=== PATIENT | female | born 1960 | race Caucasian/White ===

== ENCOUNTER 2022-02-20 18:18 | Inpatient (IN) | payer MEDICARE, SELFPAY ==
[2022-02-20] VITALS (30 sets, daily range): BP systolic 63–116; BP diastolic 43–78; PULSE 60–72; RESP 16; O2SAT 92–97; BMI 40.1
--- NOTE | 2022-02-20 18:19 | XRR_ITS ---
PROCEDURE INFORMATION: Exam: XR Chest Exam date and time: 02/20/2022 6:50 PM Age: 62 years old Clinical indication: Device placement; Other: Ng tube and et; Additional info: Pneumonia TECHNIQUE: Imaging protocol: Radiologic exam of the chest. Views: 1 view. COMPARISON: No relevant prior studies available. FINDINGS: Limitations: The study is limited by patient body habitus. Tubes, catheters and devices: There is an endotracheal tube present, with distal tip 3 cm above the kylie. There is an enteric tube present with distal tip in the stomach. Lungs: Pulmonary venous congestion and increased interstitial markings. No consolidative pulmonary infiltrate noted. Pleural spaces: No pleural effusion. No pneumothorax. Heart/Mediastinum: Mild cardiomegaly is noted. Vasculature: The thoracic aorta is tortuous. Bones/joints: Unremarkable. XR/XR chest 1V portable [id number] IMPRESSION: 1. The study is limited by patient body habitus. 2. There is an endotracheal tube present, with distal tip 3 cm above the kylie. 3. There is an enteric tube present with distal tip in the stomach. 4. Mild cardiomegaly is noted. 5. Pulmonary venous congestion and increased interstitial markings. Findings may indicate mild fluid overload/CHF. 6. No consolidative pulmonary infiltrate noted.
--- NOTE | 2022-02-20 18:49 | PC.NURSE ---
TO unit Pt brought to unit by [facility]. Pt moved from [place] to bed by EMS and ICU staff. Pt on fentanyl and versed for sedation. Sedation drips switched from EMS pumps to our pumps. Pt has IV to left hand and right forearm both patent. Pt has 7.5 ET tube, 24 at the lip and OG in place. Pt has redness that is blanchable to sacrum, redness and chaffing to both groin folds, small round areas scattered on back with scabs. Petty catheter in place. Per EMS family notified of pt transfer from [facility].
--- NOTE | 2022-02-20 19:03 | PM.HP ---
Providers/Chief Complaint Admitting Physician: Joe Kaminski MD Primary Care Provider: Nathan Schultz Chief Complaint: bilateral pnemonia History of Present Illness Nadine Herrera is a 62 year old female with PMH of HTN was a direct admit from [facility], where she went with chief complaint of worsening SOB as well cough with productive blood tinged sputum, When she aarived there she was hypoxic as well as respiratory distress, initially she was tried on non invasive mode of ventilation but given her progressive respiratory distress as well as worsening hypoxia she had to be intubated.CTA Chest done there ruled out P/E.It showed left infrahilar adenopathy rounded infiltrate within the superior segment of left lower lobe with air bronchogram surrounding groundglass infiltrates.Subtle infiltrates in the right middle lobe She was also given I.V abxs for PNA Pertinet labs done here on arrival showed. Xray chest :Cardiomegaly as well as pulmonary vascular congestion ABG : Ph: 7.44,PCO2: 43, PO2: 115 , FI02: 100 % P/F : 115 Pertinent Labs: WBC : 7.4 , H&H : 16/51 , PLT : 321, Na: 134, k : 4.8 , BUN/SCR : 16/0.5 HCO3: 27 , Lactic Acid: 1.1 , Procal: 0.19 Review of Systems General: Reports: ROS unobtainable due to endotracheal tube Medications/Allergies Home Medications Medication Instructions Recorded Confirmed Last Taken Type betamethasone, augmented 0.05 % 1 applic topical DAILY PRN unknown 02/21/22 02/21/22 Unknown History topical cream cetirizine 10 mg tablet (Zyrtec) 10 mg PO DAILY 02/21/22 02/21/22 Unknown History clobetasol 0.05 % topical cream 1 applic topical BID PRN unknown 02/21/22 02/21/22 Unknown History fluticasone propionate 50 1 spray intranasal DAILY PRN 02/21/22 02/21/22 Unknown History mcg/actuation nasal Allergy Symptoms spray,suspension (Flonase Allergy Relief) gabapentin 300 mg capsule See Rx Instructions .Route .COMPLEX 02/21/22 02/21/22 Unknown History hydroxyzine HCl 25 mg tablet 25 mg PO Q6H PRN unknown 02/21/22 02/21/22 Unknown History lisinopril 10 mg tablet 10 mg PO DAILY 02/21/22 02/21/22 Unknown History metoprolol succinate 100 mg 100 mg PO DAILY 02/21/22 02/21/22 Unknown History tablet,extended release 24 hr Allergies Allergy/AdvReac Type Severity Reaction Status Date / Time strawberry Allergy Unknown Verified 02/20/22 20:51 Vitals/I&O/Wt Last Vital Signs Resp 16 02/20/22 18:19 Pulse Ox 93 02/20/22 18:19 O2 Del Method 02/20/22 18:19 FiO2 100 02/20/22 18:19 Physical Exam Narrative: Intubated sedated on mechanical ventilation. HENMT: COMMON NORMALS: normocephalic and atraumatic HEAD & SCALP: normocephalic and atraumatic EXTERNAL EAR: Yes external ears normal Resp: COMMON NORMALS: clear to auscultation bilaterally AUSCULTATION: clear to auscultation bilaterally OTHER: Diminished air entry B/L, Coarse Breath sounds Cardio: COMMON NORMALS: regular rate, regular rhythm, S1 normal heart sound present, S2 normal heart sound present, No gallops present (Cardio), No murmurs present (Cardio), No rub (Cardio) and Peripheral pulses 2+ throughout RATE: regular rate RHYTHM: regular rhythm HEART SOUNDS: S1 normal heart sound present and S2 normal heart sound present PERIPHERAL PULSES: Peripheral pulses 2+ throughout GI: COMMON NORMALS: Normal to inspection, nondistended, normoactive bowel sounds present, Soft to palpation, non-tender, No hepatosplenomegaly present and no masses AUSCULTATION: Yes normoactive bowel sounds PALPATION: Yes Soft to palpation and Yes No hepatosplenomegaly present RECTAL EXAM: deferred Extremity: COMMON NORMALS: no clubbing, cyanosis or edema and no pedal edema Data 02/21/22 04:41 02/21/22 04:41 A&P Assessment and plan (1) Pneumonia: (2) Respiratory failure with hypoxia and hypercapnia: (3) Heart failure: Plan 62 year old female with PMH of HTN was a direct admit from [facility], where she went with chief complaint of SOB as well cough with productive blood tinged sputum. Assessment : Acute on chronic hypoxic hypercapnic respiratory failure secondary to pneumonia/heart failure/pulmonary hypertension. Decompensated heart Failure Likely with preserved ejection fraction Pulmonary hypertension with an estimated pulmonary artery peak : systolic pressure of 48 mmHg. Pneumonia HTN Morbid Obesity Plan : 2D echo: Lower extremity doppler Vein : Follow Blood Culture Sputum Gram Stain and culture MRSA PCR Respiratory viral panel Urine legionella antigen Urine bacterial antigen panel Currently she is empirically On Broad spectrum ABxs Has received lasix 40 I.V Monitor intake/Output Charting Monitor electrolytes. EKG Duo nebs Currently on versed/propofol as well as fentanyl for sedation will wean off versed. On levophed DVT PPX: On SCDS for now as she presented with scant hemoptysis. Code Status :Full code. Attestations Medical Necessity Statement*: Patient needs to be in hospital for the management of respiratory failure.Anticipated LOS Greater then 2 Midnights. Time Spent in Patient Care: Greater than 35 minutes Critical Care Time: The high probability of a clinically significant, sudden or life threatening deterioration of the patient's [] system(s) required my full and direct attention, intervention and personal management. The critical care time is as shown. This time is in addition to time spent performing any reported procedures but includes the following: [x] Data and vital sign review and interpretation [x] Patient assessment, examination and intervention [x] Documentation [x] Medication orders and management Critical Care Time (min): 90 Coding Level of Care Code Acute Control Clerk Auditing for [facility] Fwd Exam Detailed Diagnoses Pneumonia J18.9 Respiratory failure with hypoxia and hypercapnia J96.91; J96.92 Heart failure I50.9
--- NOTE | 2022-02-20 19:23 | USCV_ITS ---
Nadine Herrera Age: 62 Gender: F : 1960 Exam Date: 02/20/2022 20:59 Ordering Phys: Joe Kaminski MD Technologist: KOBY Exam Location: [facility] [place] Indication: r/o dvt Patient is on ventilator in ICU-11. HISTORY: r/o dvt Patient is on ventilator in ICU-11. PROCEDURES: Venous duplex imaging was performed in bilateral lower extremities. The following venous structures were evaluated: common femoral vein, profunda vein, proximal portion of the greater saphenous vein, superficial femoral vein, and the popliteal vein. In addition, the posterior tibial veins were evaluated. Serial compression, augmentation maneuvers, and spectral Doppler flow evaluation were performed, which were normal. Bilaterally, the common femoral, superficial femoral, profunda femoral, popliteal, posterior tibial,and greater saphenous veins were identified and interrogated in the standard fashion. These veins were found to be easily compressible with spontaneous blood flow. No evidence of thrombus noted. CONCLUSIONS No evidence of right lower extremity DVT. No evidence of left lower extremity DVT. Cyril Angeles MD (Electronically Signed) Final Date: 21 February 2022 10:59 S
--- NOTE | 2022-02-20 19:23 | USCV_ITS ---
Nadine Herrera Age: 62 Gender: F : 1960 Exam Date: 02/20/2022 21:29 Ordering Phys: Joe Kaminski MD Technologist: KOBY [place] [facility] [place]: hypoxia. On ventilator in ICU-11. BP: 82 / 52 HR: 62 Rhythm: Sinus Technical Quality: Suboptimal c/o body habitus with Optison MEASUREMENTS (Male / Female) Normal Values 2D ECHO LV Diastolic Diameter PLAX 3.5 cm 4.2 - 5.9 / 3.9 - 5.3 cm LV Systolic Diameter PLAX 2.5 cm IVS Diastolic Thickness 1.0 cm 0.6 - 1.0 / 0.6 - 0.9 cm IVS Systolic Thickness 1.8 cm LVPW Diastolic Thickness 0.9 cm 0.6 - 1.0 / 0.6 - 0.9 cm LVPW Systolic Thickness 1.2 cm LVOT Diameter 2.1 cm LV Ejection Fraction 2D Teich 59.1 % LV Ejection Fraction MOD 2C 73.2 % LV Ejection Fraction 2C AL 73.2 % LA Diameter 3.8 cm LA Width 2.9 cm LA Height 5.5 cm RA Width 4.3 cm RA Height 5.5 cm Aorta at Sinotubular Diameter 3.0 cm IVC Diameter 2.1 cm M-MODE Aortic Annulus Diameter 3.2 cm LA Ao Ratio MM 1.4 DOPPLER AV Peak Velocity 137.0 cm/s LVOT Peak Velocity 101.0 cm/s AV Area Cont Eq vti 2.9 cm squared AV Area Cont Eq pk 2.5 cm squared MV Area PHT 3.3 cm squared Mitral E to A Ratio 1.8 MV E' Velocity 54.5 cm/s Mitral E to MV E' Ratio 10.2 Mitral E to LV E' Lateral Ratio 9.8 Mitral E to LV E' Septal Ratio 10.5 TR Peak Velocity 309.0 cm/s TR Peak Gradient 38.2 mmHg TV Peak E Velocity 21.0 cm/s Right Atrial Pressure 10.0 mmHg Pulmonary Artery Systolic Pressu 48.2 mmHg PV Peak Velocity 79.0 cm/s RV Acceleration Time 0.1 s RV Ejection Time 0.3 s RV AcT/ET 0.3 FINDINGS Left Ventricle Normal left ventricular size and systolic function, EF 73 %. No regional wall motion abnormalities. Right Ventricle Normal right ventricular size. Normal right ventricular systolic function. Right Atrium The right atrium is normal in size. Left Atrium The left atrium is normal in size. Mitral Valve Thickened mitral valve. Moderate mitral annular calcification. Aortic Valve Thickened aortic valve. Tricuspid Valve Trace tricuspid valve regurgitation. Estimated pulmonary artery peak systolic pressure 48 mmHg Pulmonic Valve Pulmonic valve not well visualized. Pericardium No pericardial effusion. Aorta Normal aortic annulus size. IVC Inferior vena cava not visualized. CONCLUSIONS Normal left ventricular size and systolic function, EF 73 %. No regional wall motion abnormalities. Thickened mitral valve. Moderate mitral annular calcification. Thickened aortic valve. Trace tricuspid valve regurgitation. Pulmonary hypertension with an estimated pulmonary artery peak systolic pressure of 48 mmHg. There is no pericardial effusion. Technically difficult study because of the poor ultrasonic window. (Echo contrast - Optison was used to delineate the endocardium and to estimate the LV ejection fraction) Dr Renee Ribeiro MD [facility] (Electronically Signed) Final Date: 21 February 2022 09:20 S
[2022-02-20 19:34] LABS: Basophils # 0.1 10^3/uL (0.0-0.1); Basophils % 0.8 %; Eosinophils % 0.3 %; Hematocrit 51.5 % (37.0-47.0); Hemoglobin 16.4 g/dL (11.5-15.3); Lymphocytes # 1.9 10^3/uL (0.8-4.8); Lymphocytes % 25.1 %; Mean Corpuscular HGB Conc 31.8 g/dL (30.0-36.0); Mean Corpuscular Hemoglobin 29.3 pg (28.0-34.0); Mean Corpuscular Volume 92.1 fl (81-99); Mean Platelet Volume 9.7 fL (7.4-10.4); Monocytes # 0.8 10^3/uL (0.2-0.9); Monocytes % 10.3 %; Neutrophils # 4.61 10^3/uL (1.8-7.7); Neutrophils % 62.3 %; Nucleated Red Blood Cells % 0.4 %; Platelet Count 321 10^3/cmm (130-400); Red Blood Count 5.59 10^6/uL (4.1-5.3); White Blood Count 7.4 10^3/uL (4.0-10.0)
[2022-02-20] MEDS: propofol 1,000 MG/100 ML INJ 5.97 MG IV (19:45)
[2022-02-20 19:47] LABS: INR 1.03 (0.8-1.2); Partial Thromboplastin Time 27.9 SECONDS (23.9-36.7)
[2022-02-20 19:51] LABS: Lactate (Lactic Acid level) 1.1 mmol/L (0.5-2.2)
[2022-02-20 20:00] LABS: Alanine Aminotransferase 20 U/L (0-33); Alkaline Phosphatase 82 U/L (35-105); Anion Gap 13.8 (5-19); Aspartate Amino Transferase 21 U/L (0-32); Blood Urea Nitrogen 16 mg/dL (8-23); Calcium 8.3 mg/dL (8.5-10.5); Carbon Dioxide 27 mmol/L (22-29); Chloride 98 mmol/L (98-107); Globulin 3.1 g/dL (1.3-4.6); Glucose 104 mg/dL (65-115); Osmolality Calculated 279 mOsm/kg (285-295); Potassium 4.8 mmol/L (3.5-5.1); Sodium 134 mmol/L (136-145); Total Bilirubin 0.2 mg/dL (0.15-1.2); Total Protein 6.1 g/dL (6.6-8.7)
--- NOTE | 2022-02-20 20:03 | XRR_ITS ---
PROCEDURE INFORMATION: Exam: XR Chest Exam date and time: 02/20/2022 8:11 PM Age: 62 years old Clinical indication: Device placement; Other: Central line placement TECHNIQUE: Imaging protocol: Radiologic exam of the chest. Views: 1 view. COMPARISON: CR (CHEST, ) 02/20/2022 6:50 PM FINDINGS: Tubes, catheters and devices: Right jugular central line with tip overlying right atrium. Endotracheal tube and nasogastric tube appear unchanged. Lungs: Pulmonary venous congestion and increased interstitial markings. No consolidative pulmonary infiltrate noted. Pleural spaces: Suspect left pleural effusion. No pneumothorax. Heart/Mediastinum: Mild cardiomegaly. Bones/joints: Unremarkable. XR/XR chest 1V portable [id number] IMPRESSION: 1. Right jugular central line with tip overlying right atrium. No postprocedure pneumothorax. 2. Pulmonary venous congestion and increased interstitial markings. No consolidative pulmonary infiltrate noted. 3. Suspect left pleural effusion.
[2022-02-20 20:05] LABS: Procalcitonin 0.19 ng/mL (0-0.5)
[2022-02-20 20:32] LABS: ABG PCO2 43.2 mmHg (35-45); ABG PH Result 7.44 (7.35-7.45); Arterial Blood Gas Hematocrit 52.7 % (37-47); Base Excess ABG 4.2 mmol/L (-2.0-2.0); Blood Gas Allen Test Pos; Blood Gas Sample Site Radial, right; Blood Gas Sample Type Arterial; Blood Gas Tidal Volume 0.45; HCO3 ABG 29.2 mmol/L (22-26); Oxygen Device VENT
[2022-02-20 20:43] LABS: Glucose Point of Care 138 mg/dL (70-110)
[2022-02-20] MEDS: piperacillin-tazobactam 3.375 GM in sodium chloride 0.9% (plus) 50 ML IV (20:48)
--- NOTE | 2022-02-20 20:48 | ECG_ITS ---
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 Measurements Intervals [place] Rate: 62 P: 76 WV: 131 QRS: 60 QRSD: 97 T: 75 QT: 445 QTc: 452 Interpretive Statements SINUS RHYTHM POSSIBLE RIGHT ATRIAL ENLARGEMENT [0.25mV P-WAVE] MODERATE T-WAVE ABNORMALITY, CONSIDER ANTERIOR ISCHEMIA [-0.1+ mV T-WAVE IN V3/V4] No previous ECG available for comparison Electronically Signed On 02-21-2022 20:44:29 FLASH DEVELOPER by Renee Ribeiro M.D. [id number]
[2022-02-20] MEDS: FUROsemide 10 mg/mL SDV 4mL 40 MG IVP (21:15)
[2022-02-20] MEDS: vancomycin 1,250 MG/250 ML PIGGYBACK 250 MG IV (21:15)
--- NOTE | 2022-02-20 22:24 | PM.ACPR ---
Procedure/Consent Time out: Time Out Performed: Yes Acute Procedures Central Line Placement: Right IJ: Time out performed: Yes Patient placed on monitor/pulse ox: Yes MD prep: mask, gown and gloves Central line prep: Chlorhexidine scrub and sterile drapes applied Local anesthesia used: lidocaine 1% Amount of anesthesia used (ml): 10 Ultrasound used for placement: Yes Central line lumen inserted: triple Post procedure: sutured in place, good blood return, all ports aspirated, flushed, capped and sterile dressing applied Post procedure x-ray: tip of catheter in good position and no pneumothorax seen Patient tolerated procedure: well and no complications Complications: none and pneumothorax Epistaxis Control: Time out performed: Yes
[2022-02-21] VITALS (93 sets, daily range): BP systolic 86–135; BP diastolic 49–91; PULSE 61–96; RESP 15–16; TEMP 37.3–37.8; O2SAT 90–99
[2022-02-21] MEDS: propofol 1,000 MG/100 ML INJ 17.9 MG IV (01:31)
[2022-02-21] MEDS: piperacillin-tazobactam 3.375 GM in sodium chloride 0.9% (plus) 50 ML IV ×3 (03:10→20:51)
[2022-02-21] MEDS: ipratropium 0.5 mg/2.5 mL Neb INHALATION ×3 (03:40→14:04)
[2022-02-21] MEDS: albuterol 2.5 mg/3 mL Neb INHALATION ×3 (03:40→14:04)
[2022-02-21 03:41] LABS: Adenovirus Not Detected (NOT DETECT); Chlamydia Pneumoniae Not Detected (NOT DETECT); Coronavirus 229E,HKU1,NL63,OC4 Not Detected (NOT DETECT); Human Metapneumovirus Not Detected (NOT DETECT); Human Rhinovirus/Enterovirus Not Detected (NOT DETECT); Influenza A Detected (NOT DETECT); Influenza A H1 Not Detected (NOT DETECT); Influenza A H1-2009 Not Detected (NOT DETECT); Influenza A H3 Detected (NOT DETECT); Influenza B Not Detected (NOT DETECT); Mycoplasma Pneumoniae Not Detected (NOT DETECT); Parainfluenza Virus Type 1 Not Detected (NOT DETECT); Parainfluenza Virus Type 2 Not Detected (NOT DETECT); Parainfluenza Virus Type 3 Not Detected (NOT DETECT); Parainfluenza Virus Type 4 Not Detected (NOT DETECT); Respiratory Syncytial Virus A Not Detected (NOT DETECT); Respiratory Syncytial Virus B Not Detected (NOT DETECT); SARS-COV-2 Not Detected (NOT DETECT)
[2022-02-21 04:21] LABS: ABG PCO2 54.9 mmHg (35-45); ABG PH Result 7.36 (7.35-7.45); Alveolar-Arterial Oxygen Gradi 68.2 mmHg (5-10); Arterial Blood Gas Hematocrit 53.3 % (37-47); Base Excess ABG 3.3 mmol/L (-2.0-2.0); Blood Gas Allen Test Pos; Blood Gas Sample Site Radial, right; Blood Gas Sample Type Arterial; Blood Gas Tidal Volume 0.45; Carboxyhemoglobin < 1.0 %THgb (0.4-20.1); HCO3 ABG 30.7 mmol/L (22-26); HGB O2 Sat 97.7 % (95-100); Ionized Calcium Level - ABG 1.1 mmol/L (1.1-1.4); Methemoglobin 0.1 % (0.4-1.5); Oxygen Device VENT; Oxygen Saturation ABG 98.6; Potassium Level - ABG 3.6 mmol/L (3.5-5.0); Total Hemoglobin 17.4 g/dL (12-16)
[2022-02-21 05:18] LABS: Basophils # 0.1 10^3/uL (0.0-0.1); Basophils % 0.6 %; Eosinophils # 0.1 10^3/uL (0.0-0.8); Hematocrit 52.1 % (37.0-47.0); Hemoglobin 16.3 g/dL (11.5-15.3); Lymphocytes # 1.7 10^3/uL (0.8-4.8); Lymphocytes % 20.5 %; Mean Corpuscular HGB Conc 31.3 g/dL (30.0-36.0); Mean Corpuscular Hemoglobin 29.2 pg (28.0-34.0); Mean Corpuscular Volume 93.4 fl (81-99); Mean Platelet Volume 10.1 fL (7.4-10.4); Monocytes # 0.9 10^3/uL (0.2-0.9); Monocytes % 10.7 %; Nucleated Red Blood Cells % 0.2 %; Platelet Count 307 10^3/cmm (130-400); Red Blood Count 5.58 10^6/uL (4.1-5.3); Red Cell Distribution Width 14.1 % (12.1-15.1); White Blood Count 8.2 10^3/uL (4.0-10.0)
[2022-02-21] MEDS: propofol 1,000 MG/100 ML INJ 26.84 MG IV ×5 (05:22→22:24)
[2022-02-21 05:23] LABS: INR 1.08 (0.8-1.2)
[2022-02-21 05:24] LABS: Partial Thromboplastin Time 28.8 SECONDS (23.9-36.7)
[2022-02-21 05:44] LABS: NT Pro B Type Natriuretic Pept 735 pg/mL (0-125); Procalcitonin 0.19 ng/mL (0-0.5); Thyroid Stimulating Hormone 3.59 uIU/mL (0.27-4.20)
[2022-02-21 05:55] LABS: Alanine Aminotransferase 19 U/L (0-33); Alkaline Phosphatase 83 U/L (35-105); Anion Gap 13.6 (5-19); Aspartate Amino Transferase 17 U/L (0-32); Blood Urea Nitrogen 13 mg/dL (8-23); Calcium 7.9 mg/dL (8.5-10.5); Carbon Dioxide 28 mmol/L (22-29); Chloride 97 mmol/L (98-107); Globulin 3.1 g/dL (1.3-4.6); Glucose 138 mg/dL (65-115); Magnesium 1.4 mg/dL (1.7-2.3); Osmolality Calculated 282 mOsm/kg (285-295); Phosphorus 2.5 mg/dL (2.5-4.5); Potassium 3.6 mmol/L (3.5-5.1); Sodium 135 mmol/L (136-145); Total Bilirubin 0.2 mg/dL (0.15-1.2); Total Protein 6.1 g/dL (6.6-8.7)
[2022-02-21 07:34] LABS: Glucose Point of Care 133 mg/dL (70-110)
[2022-02-21] MEDS: perflutren protein-a microsphr 0.22 mg/mL SDV 3 mL IV (07:38)
--- NOTE | 2022-02-21 09:36 | PC.PHAR ---
pt unable to verify medications due to being intubated-called pts sister jerman kapadia [phone] no answer @ 07:44 and 09:30-medications entered are medications that show up on ext med history
[2022-02-21] MEDS: vancomycin 1,250 MG/250 ML PIGGYBACK 250 MG IV ×2 (09:45→20:51)
[2022-02-21] MEDS: FUROsemide 10 mg/mL SDV 2mL 20 MG IVP ×2 (09:45→21:48)
--- NOTE | 2022-02-21 12:30 | PC.CHAP ---
Pastoral Care Encounter/Spiritual Assessment Type of Contact [] Declined ward service supervisor visit [] Patient/Family/Request visit [] Outpatient visit [] Follow-up visit [] Physician referral [] Code/Alert [x] Routine visit [] Staff referral [] Actively dying [x] Patient sleeping [] Family support [] [] Out of room [] Palliative care [] [] Receiving care in room [] Pre-surgical visit [] Trauma [] Long length of stay [x] ICU visit [x] Other: vent Relational/Emotional Strength [] Patient feels connected with others/family/visitors/staff [] Distress [] Loneliness/isolation [] Abandonment Spirituality of Patient [] Person of Corina [] Attends Voodoo of their Corina [] Believes in Prayer [] Reads Bible or Jehovah'S Witness materials [] There are Spiritual issues to be addressed Banquet Captain Interventions [x] Prayer [] Active listening [] Non-anxious presence [] Spiritual/emotional support [] Crisis/trauma care [] Spiritual counseling [] Bereavement support [] Provided bereavement packet [] Provided Bible/devotional materials [] Provided toy/stuffed animal, coloring book to patient or family member [] Provided Communion [] Anointing/[place] [] Salvation [x] Completed spiritual assessment [] Other: Impact on Illness or Injury [] Angry [] Fearful [] Anxious [] Often cries [] Exhaustion [] Unable to work [] Unable to attend mandaen [] Unable to walk/stand [] Unable to read [] Unable to drive [] Unable to eat/drink [] Unable to sleep [] Unable to be with family [] Patient intubated [] Other: Summary Time spent with patient
[2022-02-21] MEDS: lidocaine 1% 5 ML in potassium chloride premix 100 ML 50 ML IV (16:20)
[2022-02-21] MEDS: magnesium sulfate premix 2 GM/50 ML PIGGYBACK IV (16:22)
--- NOTE | 2022-02-21 16:42 | P.PN_ITS ---
Subjective Subjective: Patient was seen and examined this morning,currently she is intubated sedated on mechanical ventilation. Overnight good urine output with jeronimo Escobedo ABG: pH 7.36, PCO2 54, PO2:114, FiO2 of 100% Afebrile overnight. Her other vitals and labs have been reviewed. Medications: Medication Review Details: Generic Name Dose Route Start Last Admin Trade Name Leslie PRN Reason Stop Dose Admin Piperacillin Sod/T azobactam 50 mls @ 12.5 mls /hr 02/20/22 18:30 02/21/22 12:48 Sod 3.375 gm/ So dium Chloride IV 12.5 mls/hr Q8H JAVON Administration Protocol Propofol 1,000 mg in 100 m ls @ 0 mls/hr 02/20/22 18:30 02/21/22 14:09 Diprivan IV 45 mcg/kg/min .Q0M JAVON 26.84 mls/hr Administration Protocol Per Protocol Fentanyl 1,000 mcg / Sodium 100 mls @ 0 mls/h r 02/20/22 18:30 02/21/22 12:49 Chloride IV 125 mcg/hr .Q0M JAVON 12.5 mls/hr Administration Protocol Per Protocol Norepinephrine Bit artrate 4 mg 254 mls @ 0 mls/h r 02/20/22 18:30 02/21/22 10:51 / Dextrose IV 8 mcg/min .Q0M JAVON 30.48 mls/hr Administration Protocol Per Protocol Vancomycin/PEG/NAD A/Lysine/Water 1,250 mg in 250 m ls @ 250 mls/hr 02/20/22 21:00 02/21/22 11:23 Vancocin IV Infused Q12H JAVON Infusion Lidocaine HCl 5 ml / Potassium 105 mls @ 50 mls/ hr 02/21/22 16:15 02/21/22 16:20 Chloride IV 02/21/22 18:20 50 mls/hr ONCE ONE Administration Vitals/I&O/Wt Last Vital Signs Temp 99.2 F 02/21/22 07:35 Pulse 96 02/21/22 14:11 Resp 16 02/21/22 16:00 BP 99/58 02/21/22 13:15 Pulse Ox 94 02/21/22 16:00 O2 Del Method 02/21/22 14:10 FiO2 50 02/21/22 16:00 02/21/22 02/21/22 02/21/22 06:59 14:59 22:59 Intake Total 850.209 / 961.451 750.074 / 750.074 Output Total 2150 / 2150 750 / 750 Balance -1299.791 / -1188.549 0.074 / 0.074 Weight last 48 hrs Weight 97.976 kg Weight 99.422 kg Physical Exam Narrative: Intubated sedated on mechanical ventilation. HENMT: COMMON NORMALS: normocephalic, atraumatic, hearing grossly normal bilaterally and external ears normal HEAD & SCALP: normocephalic and atraumatic EXTERNAL EAR: Yes external ears normal Resp: COMMON NORMALS: clear to auscultation bilaterally AUSCULTATION: clear to auscultation bilaterally OTHER: Diminished air entry B/L, Coarse Breath sounds Cardio: COMMON NORMALS: regular rate, regular rhythm, S1 normal heart sound present, S2 normal heart sound present, No gallops present (Cardio), No murmurs present (Cardio), No rub (Cardio) and Peripheral pulses 2+ throughout RATE: regular rate RHYTHM: regular rhythm HEART SOUNDS: S1 normal heart sound present and S2 normal heart sound present PERIPHERAL PULSES: Peripheral pulses 2+ throughout GI: COMMON NORMALS: Normal to inspection, nondistended, normoactive bowel sounds present, Soft to palpation, non-tender, No hepatosplenomegaly present and no masses AUSCULTATION: Yes normoactive bowel sounds PALPATION: Yes Soft to palpation and Yes No hepatosplenomegaly present RECTAL EXAM: deferred Extremity: COMMON NORMALS: no clubbing, cyanosis or edema and no pedal edema Data 02/21/22 04:41 02/21/22 04:41 Micro: Microbiology 02/21/22 00:01 MRSA Culture - Final Nose 02/20/22 18:16 Gram Stain - Final Sputum - Endotracheal Tube Aspirate Sputum Culture - Preliminary 02/21/22 00:01 Legionella Urinary Antigen - Final Urine,Clean Catch Bacterial Antigens - Final 02/20/22 19:22 Blood Culture - Preliminary Blood SPECIMEN COLLECTED 02/20/22 19:13 Blood Culture - Preliminary Blood SPECIMEN COLLECTED A&P Assessment and plan (1) Pneumonia: (2) Respiratory failure with hypoxia and hypercapnia: (3) Heart failure: Plan 62 year old female with PMH of HTN was a direct admit from [facility], where she went with chief complaint of SOB as well cough with productive blood tinged sputum. Assessment : Acute on chronic hypoxic hypercapnic respiratory failure secondary to pneumonia/heart failure/pulmonary hypertension/influenza Decompensated heart Failure Likely with preserved ejection fraction Pulmonary hypertension with an estimated pulmonary artery peak : systolic pressure of 48 mmHg. Pneumonia HTN Morbid Obesity Plan : CTA chest: No P/E.It showed left infrahilar adenopathy rounded infiltrate within the superior segment of left lower lobe with air bronchogram surrounding groundglass infiltrates.Subtle infiltrates in the right middle lobe. 2D echo: Normal LV size and systolic function, LVEF:73%, no RWMA, technically difficult study with poor windows. Lower extremity doppler Vein : Negative for DVT EKG : Sinus rhythm no acute ST-T wave changes Blood Culture: Sputum Gram Stain and culture MRSA PCR: Negative Respiratory viral panel : Results appreciated Urine legionella antigen: Negative Urine bacterial antigen panel: Negative Currently she is empirically On Broad spectrum ABxs ( Vanco and Zosyn ) On Tamiflu Has received Lasix Monitor intake/Output Charting Monitor electrolytes. Monitor x-ray chest Duo nebs Currently on versed/propofol as well as fentanyl for sedation will wean off versed. On levophed DVT PPX: On SCDS and Lovenox Code Status :Full code. Attestations Medical Necessity Statement*: Patient is to be in hospital for management of respiratory failure. Time Spent in Patient Care: Greater than 35 minutes (>than 50% of time spent in counselling and/or direct pt care on unit) . Critical Care Time: The high probability of a clinically significant, sudden or life threatening deterioration of the patient's [] system(s) required my full and direct attention, intervention and personal management. The critical care time is as shown. This time is in addition to time spent performing any reported procedures but includes the following: [x] Data and vital sign review and interpretation [x] Patient assessment, examination and intervention [x] Documentation [x] Medication orders and management Critical Care Time (min): 45 Coding Level of Care Code Acute Manager Of Revenue for [employer] Fwd Diagnoses Pneumonia J18.9 Respiratory failure with hypoxia and hypercapnia J96.91; J96.92 Heart failure I50.9
[2022-02-21] MEDS: oseltamivir phosphate 75 mg Capsule PO (17:51)
[2022-02-21] MEDS: enoxaparin 40 mg/0.4 mL Syringe SUBCUT (17:51)
[2022-02-21] MEDS: ipratropium-albuterol 3 mL Neb INHALATION (20:11)
[2022-02-21] MEDS: acetaminophen 325 mg Tablet 650 MG PO (21:49)
[2022-02-22] VITALS (83 sets, daily range): BP systolic 89–168; BP diastolic 47–87; PULSE 65–100; RESP 16–17; TEMP 37.2–37.7; O2SAT 90–99
[2022-02-22] MEDS: propofol 1,000 MG/100 ML INJ 26.84 MG IV (01:47)
[2022-02-22] MEDS: ipratropium-albuterol 3 mL Neb INHALATION ×4 (01:54→20:05)
[2022-02-22] MEDS: piperacillin-tazobactam 3.375 GM in sodium chloride 0.9% (plus) 50 ML IV ×3 (04:00→19:55)
[2022-02-22 04:04] LABS: Basophils % 0.5 %; Eosinophils # 0.1 10^3/uL (0.0-0.8); Eosinophils % 0.9 %; Hematocrit 50.7 % (37.0-47.0); Lymphocytes # 1.4 10^3/uL (0.8-4.8); Lymphocytes % 16.2 %; Mean Corpuscular HGB Conc 31.6 g/dL (30.0-36.0); Mean Platelet Volume 9.9 fL (7.4-10.4); Monocytes # 0.9 10^3/uL (0.2-0.9); Monocytes % 10.5 %; Neutrophils % 70.6 %; Nucleated Red Blood Cells % 0 %; Platelet Count 303 10^3/cmm (130-400); Red Blood Count 5.51 10^6/uL (4.1-5.3); Red Cell Distribution Width 14.2 % (12.1-15.1); White Blood Count 8.8 10^3/uL (4.0-10.0)
[2022-02-22 04:28] LABS: Alanine Aminotransferase 15 U/L (0-33); Albumin Level 2.7 g/dL (3.5-5.2); Alkaline Phosphatase 81 U/L (35-105); Anion Gap 13.5 (5-19); Aspartate Amino Transferase 15 U/L (0-32); Blood Urea Nitrogen 10 mg/dL (8-23); Calcium 8.3 mg/dL (8.5-10.5); Carbon Dioxide 28 mmol/L (22-29); Chloride 95 mmol/L (98-107); Globulin 3.5 g/dL (1.3-4.6); Glucose 120 mg/dL (65-115); Osmolality Calculated 276 mOsm/kg (285-295); Potassium 3.5 mmol/L (3.5-5.1); Sodium 133 mmol/L (136-145); Total Bilirubin 0.4 mg/dL (0.15-1.2); Total Protein 6.2 g/dL (6.6-8.7)
[2022-02-22 04:36] LABS: ABG PCO2 41.9 mmHg (35-45); ABG PH Result 7.42 (7.35-7.45); Alveolar-Arterial Oxygen Gradi 29.2 mmHg (5-10); Arterial Blood Gas Hematocrit 58.2 % (37-47); Base Excess ABG 2.2 mmol/L (-2.0-2.0); Blood Gas Allen Test Pos; Blood Gas Operator Identificat JB; Blood Gas Sample Site Radial, right; Blood Gas Sample Type Arterial; Blood Gas Tidal Volume 0.45; Carboxyhemoglobin 0.8 %THgb (0.4-20.1); HCO3 ABG 27.2 mmol/L (22-26); HGB O2 Sat 95.2 % (95-100); Ionized Calcium Level - ABG 1.2 mmol/L (1.1-1.4); Methemoglobin 0.2 % (0.4-1.5); Oxygen Device VENT; Oxygen Saturation ABG 96.2; Potassium Level - ABG 3.6 mmol/L (3.5-5.0)
[2022-02-22] MEDS: propofol 1,000 MG/100 ML INJ 29.83 MG IV ×5 (04:42→16:36)
[2022-02-22 08:15] LABS: Vancomycin Trough 12.5 ug/mL (10-15)
[2022-02-22] MEDS: oseltamivir phosphate 75 mg Capsule PO ×2 (09:39→16:58)
[2022-02-22] MEDS: vancomycin 1,250 MG/250 ML PIGGYBACK 250 MG IV (09:39)
--- NOTE | 2022-02-22 14:31 | PM.PN ---
Subjective Subjective: Patient was seen and examined this morning,currently she is intubated sedated on mechanical ventilation. Continues to have good urine output with Lasix 40 IV daily, currently she is on 40% FiO2, and PEEP of 8,tv, 150, a.m. ABG: Has shown pH of 7.42 PCO2 41, PO2 77 FiO2 of 50%, P/F : 77/0.5 Currently she is having thick secretions. Medications: Medication Review Details: Generic Name Dose Route Start Last Admin Trade Name Freq PRN Reason Stop Dose Admin Acetaminophen 650 mg 02/20/22 18:19 02/21/22 21:49 Acetaminophen 32 5 Mg Tablet PO 650 mg Q6H PRN Administration Mild/Mod Pain Or Temp >/= 101 Albuterol/Ipratrop ium 3 ml 02/21/22 20:00 02/22/22 13:48 Ipratropium-Albu terol 3 Ml Neb INHALATION 3 ml Q6H.RESP JAVON Administration Enoxaparin Sodium 40 mg 02/21/22 18:00 02/21/22 17:51 Enoxaparin 40 Mg /0.4 Ml Syringe SUBCUT 40 mg Q24H JAVON Administration Piperacillin Sod/T azobactam 50 mls @ 12.5 mls /hr 02/20/22 18:30 02/22/22 12:30 Sod 3.375 gm/ So dium Chloride IV 12.5 mls/hr Q8H JAVON Administration Protocol Propofol 1,000 mg in 100 m ls @ 0 mls/hr 02/20/22 18:30 02/22/22 14:04 Diprivan IV 50 mcg/kg/min .Q0M JAVON 29.83 mls/hr Administration Protocol Per Protocol Fentanyl 1,000 mcg / Sodium 100 mls @ 0 mls/h r 02/20/22 18:30 02/22/22 12:22 Chloride IV 125 mcg/hr .Q0M JAVON 12.5 mls/hr Administration Protocol Per Protocol Norepinephrine Bit artrate 4 mg 254 mls @ 0 mls/h r 02/20/22 18:30 02/22/22 12:21 / Dextrose IV 4 mcg/min .Q0M JAVON 15.24 mls/hr Administration Protocol Per Protocol Vancomycin/PEG/NAD A/Lysine/Water 1,250 mg in 250 m ls @ 250 mls/hr 02/20/22 21:00 02/22/22 10:55 Vancocin IV Infused Q12H JAVON Infusion Oseltamivir Phosph ate 75 mg 02/21/22 18:00 02/22/22 09:39 Oseltamivir Phos phate 75 Mg Capsul e PO 75 mg BID JAVON Administration Vitals/I&O/Wt Last Vital Signs Temp 98.9 F 02/22/22 07:53 Pulse 72 02/22/22 14:00 Resp 16 02/22/22 13:51 BP 139/66 02/22/22 12:15 Pulse Ox 96 02/22/22 13:51 O2 Del Method 02/22/22 13:50 FiO2 40 02/22/22 13:51 02/21/22 02/22/22 02/22/22 22:59 06:59 14:59 Intake Total 1008.755 / 1758.829 288.967 / 2047.796 827.889 / 827.889 Output Total 1999 / 0 250 / 250 Balance 1008.755 / 1008.829 -1711.033 / -702.204 577.889 / 577.889 Weight last 48 hrs Weight 96.842 kg Weight 97.976 kg Weight 99.422 kg Physical Exam Narrative: Intubated sedated on mechanical ventilation. HENMT: COMMON NORMALS: normocephalic, atraumatic, hearing grossly normal bilaterally and external ears normal HEAD & SCALP: normocephalic and atraumatic EXTERNAL EAR: Yes external ears normal Resp: COMMON NORMALS: clear to auscultation bilaterally AUSCULTATION: clear to auscultation bilaterally OTHER: Diminished air entry B/L, Coarse Breath sounds Cardio: COMMON NORMALS: regular rate, regular rhythm, S1 normal heart sound present, S2 normal heart sound present, No gallops present (Cardio), No murmurs present (Cardio), No rub (Cardio) and Peripheral pulses 2+ throughout RATE: regular rate RHYTHM: regular rhythm HEART SOUNDS: S1 normal heart sound present and S2 normal heart sound present PERIPHERAL PULSES: Peripheral pulses 2+ throughout GI: COMMON NORMALS: Normal to inspection, nondistended, normoactive bowel sounds present, Soft to palpation, non-tender, No hepatosplenomegaly present and no masses AUSCULTATION: Yes normoactive bowel sounds PALPATION: Yes Soft to palpation and Yes No hepatosplenomegaly present RECTAL EXAM: deferred Extremity: COMMON NORMALS: no clubbing, cyanosis or edema and no pedal edema Data 02/22/22 03:42 02/22/22 03:42 Micro: Microbiology 02/20/22 18:16 Gram Stain - Final Sputum - Endotracheal Tube Aspirate Sputum Culture - Final 02/20/22 19:22 Blood Culture - Preliminary Blood NEGATIVE TO DATE 02/20/22 19:13 Blood Culture - Preliminary Blood NEGATIVE TO DATE 02/21/22 00:01 MRSA Culture - Final Nose A&P Assessment and plan (1) Pneumonia: (2) Respiratory failure with hypoxia and hypercapnia: (3) Heart failure: Plan 62 year old female with PMH of HTN was a direct admit from [facility], where she went with chief complaint of SOB as well cough with productive blood tinged sputum. Assessment : Acute on chronic hypoxic hypercapnic respiratory failure secondary to pneumonia/heart failure/pulmonary hypertension/influenza Decompensated heart Failure Likely with preserved ejection fraction Pulmonary hypertension with an estimated pulmonary artery peak : systolic pressure of 48 mmHg. Pneumonia HTN Morbid Obesity Plan : CTA chest: No P/E.It showed left infrahilar adenopathy rounded infiltrate within the superior segment of left lower lobe with air bronchogram surrounding groundglass infiltrates.Subtle infiltrates in the right middle lobe. 2D echo: Normal LV size and systolic function, LVEF:73%, no RWMA, technically difficult study with poor windows. Lower extremity doppler Vein : Negative for DVT EKG : Sinus rhythm no acute ST-T wave changes Blood Culture: Sputum Gram Stain and culture MRSA PCR: Negative Respiratory viral panel : Results appreciated Urine legionella antigen: Negative Urine bacterial antigen panel: Negative Currently she is empirically On Broad spectrum ABxs ( Vanco and Zosyn ) On Tamiflu Has received Lasix Monitor intake/Output Charting Monitor electrolytes. Monitor x-ray chest Duo nebs Currently on /propofol as well as fentanyl for sedation versed has been weaned off On levophed Plan for today: Continue mechanical ventilation, discontinue vancomycin, will continue with Lasix. DVT PPX: On SCDS and Lovenox Code Status :Full code. Attestations Medical Necessity Statement*: Patient is to be in hospital for management respiratory failure. Time Spent in Patient Care: Greater than 35 minutes (>than 50% of time spent in counselling and/or direct pt care on unit). Critical Care Time: The high probability of a clinically significant, sudden or life threatening deterioration of the patient's [] system(s) required my full and direct attention, intervention and personal management. The critical care time is as shown. This time is in addition to time spent performing any reported procedures but includes the following: [x] Data and vital sign review and interpretation [x] Patient assessment, examination and intervention [x] Documentation [x] Medication orders and management Critical Care Time (min): 45 Coding Level of Care Code Acute Academic Success Coordinator for g Fwd Exam Detailed Diagnoses Pneumonia J18.9 Respiratory failure with hypoxia and hypercapnia J96.91; J96.92 Heart failure I50.9
[2022-02-22] MEDS: FUROsemide 10 mg/mL SDV 2mL 20 MG IVP ×2 (14:53→22:33)
[2022-02-22] MEDS: enoxaparin 40 mg/0.4 mL Syringe SUBCUT (16:58)
--- NOTE | 2022-02-22 19:13 | PC.NURSE ---
Sister Marisol at bedside. Given update on patient. Patient became very alert attempting to grab at tubes and lines. Family educated on low stimulation to assist with sedation. Sedation titrated up per order in apr.
[2022-02-22] MEDS: propofol 1,000 MG/100 ML INJ 35.79 MG IV ×2 (19:48→22:31)
[2022-02-22] MEDS: acetylcysteine 200 mg/mL SDV 4 mL INHALATION (20:05)
[2022-02-23] VITALS (106 sets, daily range): BP systolic 93–185; BP diastolic 50–118; PULSE 69–128; RESP 16–30; TEMP 36.8–37.7; O2SAT 85–99
[2022-02-23] MEDS: propofol 1,000 MG/100 ML INJ 35.79 MG IV ×2 (00:55→03:43)
[2022-02-23] MEDS: acetylcysteine 200 mg/mL SDV 4 mL INHALATION ×3 (01:54→20:11)
[2022-02-23] MEDS: ipratropium-albuterol 3 mL Neb INHALATION ×3 (01:54→20:11)
[2022-02-23 03:32] LABS: Basophils % 0.2 %; Eosinophils # 0.1 10^3/uL (0.0-0.8); Eosinophils % 1.7 %; Hematocrit 49.2 % (37.0-47.0); Hemoglobin 15.7 g/dL (11.5-15.3); Lymphocytes # 1.7 10^3/uL (0.8-4.8); Lymphocytes % 20.3 %; Mean Corpuscular HGB Conc 31.9 g/dL (30.0-36.0); Mean Corpuscular Hemoglobin 29.2 pg (28.0-34.0); Mean Corpuscular Volume 91.4 fl (81-99); Mean Platelet Volume 9.5 fL (7.4-10.4); Monocytes # 0.9 10^3/uL (0.2-0.9); Neutrophils % 65.8 %; Nucleated Red Blood Cells % 0 %; Platelet Count 318 10^3/cmm (130-400); Red Blood Count 5.38 10^6/uL (4.1-5.3); Red Cell Distribution Width 14.4 % (12.1-15.1); White Blood Count 8.2 10^3/uL (4.0-10.0)
[2022-02-23] MEDS: piperacillin-tazobactam 3.375 GM in sodium chloride 0.9% (plus) 50 ML IV ×3 (03:43→19:34)
[2022-02-23 03:55] LABS: Alanine Aminotransferase 15 U/L (0-33); Albumin Level 2.9 g/dL (3.5-5.2); Alkaline Phosphatase 73 U/L (35-105); Anion Gap 16.7 (5-19); Aspartate Amino Transferase 21 U/L (0-32); Blood Urea Nitrogen 10 mg/dL (8-23); Calcium 7.9 mg/dL (8.5-10.5); Carbon Dioxide 26 mmol/L (22-29); Chloride 98 mmol/L (98-107); Globulin 3.3 g/dL (1.3-4.6); Glomerular Filtration Rate 101.3 mL/min (90-130); Glucose 100 mg/dL (65-115); Osmolality Calculated 283 mOsm/kg (285-295); Potassium 3.7 mmol/L (3.5-5.1); Sodium 137 mmol/L (136-145); Total Bilirubin 0.5 mg/dL (0.15-1.2); Total Protein 6.2 g/dL (6.6-8.7)
--- NOTE | 2022-02-23 05:00 | XRR_ITS ---
PROCEDURE INFORMATION: Exam: XR Chest Exam date and time: 02/23/2022 5:14 AM Age: 62 years old Clinical indication: Condition or disease; Lung condition and disease; Other: Not specified; Patient HX: F/u for pneumonia. Flu +. Intubated. No medical/surgical history charted in emr summary TECHNIQUE: Imaging protocol: Radiologic exam of the chest. Views: 1 view. COMPARISON: CR (CHEST, ) 02/20/2022 8:11 PM FINDINGS: Tubes, catheters and devices: Endotracheal tube is in satisfactory position. Right IJ approach central line is in satisfactory position, with distal tip in the RA. Feeding tube is in satisfactory position. Lungs: There is redistribution and indistinctness of the pulmonary vasculature, in association with haziness of the lungs and small bilateral pleural effusions, which in the setting of cardiomegaly is consistent with pulmonary edema. Pneumonia should be excluded clinically. No pneumothorax. Pleural spaces: See Lungs finding. Heart/Mediastinum: Stable cardiomediastinal silhouette. Bones/joints: Unremarkable. XR/XR chest 1V portable [id number] IMPRESSION: Imaging findings of pulmonary edema with small bilateral pleural effusions. Pneumonia should be excluded clinically.
[2022-02-23 05:40] LABS: ABG PCO2 42.3 mmHg (35-45); ABG PH Result 7.42 (7.35-7.45); Alveolar-Arterial Oxygen Gradi 20.8 mmHg (5-10); Arterial Blood Gas Hematocrit 51.9 % (37-47); Base Excess ABG 2.7 mmol/L (-2.0-2.0); Blood Gas Allen Test Pos; Blood Gas Operator Identificat JB; Blood Gas Sample Site Radial, right; Blood Gas Sample Type Arterial; Blood Gas Tidal Volume 0.45; Carboxyhemoglobin 1.1 %THgb (0.4-20.1); HCO3 ABG 27.6 mmol/L (22-26); HGB O2 Sat 93.2 % (95-100); Ionized Calcium Level - ABG 1.1 mmol/L (1.1-1.4); Methemoglobin 0.5 % (0.4-1.5); Oxygen Device VENT; Oxygen Saturation ABG 94.7; PO2 ABG 72.5 mmHg (80.0-100.0); Potassium Level - ABG 3.5 mmol/L (3.5-5.0); Total Hemoglobin 16.9 g/dL (12-16)
[2022-02-23] MEDS: propofol 1,000 MG/100 ML INJ 26.84 MG IV (06:54)
[2022-02-23] MEDS: FUROsemide 10 mg/mL SDV 4mL 40 MG IVP (08:35)
--- NOTE | 2022-02-23 08:56 | PC.RESP ---
I attempted to wean pt per verbal bedside order from Dr. Kaminski. Dr. Kaminski gave verbal bedside order to extubate pt when she would not follow commands and sedation was still on. I told him I was not comfortable to extubate at this time. We stayed in room and I waited until pt could follow commands. Pt extubated without wean trial with Dr. Kaminski at bedside the entire time.
[2022-02-23] MEDS: dexmedetomidine 400 MCG in sodium chloride 0.9% (100 ml) 100 ML 5.53 MCG IV (09:00)
[2022-02-23] MEDS: LORazepam 2 mg/mL INJ 1 mL IVP ×4 (09:14→19:34)
--- NOTE | 2022-02-23 09:45 | XRR_ITS ---
PROCEDURE INFORMATION: Exam: XR Chest Exam date and time: 02/23/2022 10:05 AM Age: 62 years old Clinical indication: Device placement; Other: Central line; Additional info: Verify placement of central line TECHNIQUE: Imaging protocol: Radiologic exam of the chest. Views: 1 view. COMPARISON: CR XR chest 1V portable [id number] 02/23/2022 5:14 AM FINDINGS: Tubes, catheters and devices: Right IJ approach central line is in satisfactory position, with distal tip in the RA. Interval removal of endotracheal and feeding tubes. Lungs: Persistent increased lung markings and haziness of the lungs, involving mainly the lower lobes, which in the setting of cardiomegaly is consistent with pulmonary congestion. Pneumonia should be excluded clinically. Possible trace left pleural effusion. No pneumothorax. Pleural spaces: See Lungs finding. Heart/Mediastinum: Stable cardiomediastinal silhouette. Bones/joints: Unremarkable. XR/XR chest 1V portable [id number] IMPRESSION: Imaging findings of pulmonary edema with trace left pleural effusion pneumonia should be excluded clinically.
[2022-02-23] MEDS: ziprasidone 20 mg/mL SDV 10 MG IM ×2 (11:03→13:17)
[2022-02-23] MEDS: nicotine 21 mg Patch 1 PATCH TRANSDERMA (12:18)
[2022-02-23] MEDS: dexmedetomidine 400 MCG in sodium chloride 0.9% (100 ml) 100 ML 27.65 MCG IV (12:25)
--- NOTE | 2022-02-23 13:23 | PC.SOCIAL ---
IMM Updated pg 2 of IMM updated via message w/ patients sister. Provided call back number if any questions. Copy dated, initialed and placed in chart.
--- NOTE | 2022-02-23 14:06 | P.PN_ITS ---
Subjective Subjective: Patient was seen and examined this morning, x-ray chest ABG was reviewed, she was successfully extubated to oxygen via nasal cannula. Post extubation patient was extremely agitated and violent requiring Geodon Precedex and Ativan. Medications: Medication Review Details: Generic Name Dose Route Start Last Admin Trade Name Freq PRN Reason Stop Dose Admin Acetaminophen 650 mg 02/20/22 18:19 02/21/22 21:49 Acetaminophen 32 5 Mg Tablet PO 650 mg Q6H PRN Administration Mild/Mod Pain Or Temp >/= 101 Acetylcysteine 200 mg 02/23/22 14:00 02/23/22 13:21 Acetylcysteine 2 00 Mg/Ml Sdv 4 Ml INHALATION Not Given Q6H.RESP JAVON Albuterol/Ipratrop ium 3 ml 02/21/22 20:00 02/23/22 13:22 Ipratropium-Albu terol 3 Ml Neb INHALATION Not Given Q6H.RESP JAVON Enoxaparin Sodium 40 mg 02/21/22 18:00 02/22/22 16:58 Enoxaparin 40 Mg /0.4 Ml Syringe SUBCUT 40 mg Q24H JAVON Administration Furosemide 40 mg 02/23/22 08:00 02/23/22 08:35 Furosemide 10 Mg /Ml Sdv 4ml IVP 40 mg Q24H JAVON Administration Piperacillin Sod/T azobactam 50 mls @ 12.5 mls /hr 02/20/22 18:30 02/23/22 12:18 Sod 3.375 gm/ So dium Chloride IV 12.5 mls/hr Q8H JAVON Administration Protocol Propofol 1,000 mg in 100 m ls @ 0 mls/hr 02/20/22 18:30 02/23/22 11:10 Diprivan IV Infused .Q0M JAVON Titration Protocol Per Protocol Fentanyl 1,000 mcg / Sodium 100 mls @ 0 mls/h r 02/20/22 18:30 02/23/22 08:30 Chloride IV Infused .Q0M JAVON Titration Protocol Per Protocol Norepinephrine Bit artrate 4 mg 254 mls @ 0 mls/h r 02/20/22 18:30 02/22/22 22:41 / Dextrose IV 0 mcg/min .Q0M JAVON 0 mls/hr Titration Protocol Per Protocol Dexmedetomidine HC l 400 mcg/ 104 mls @ 0 mls/h r 02/23/22 08:30 02/23/22 13:39 Sodium Chloride IV 1.2 mcg/kg/hr .Q0M JAVON 33.18 mls/hr Titration Protocol Per Protocol Nicotine 1 patch 02/23/22 12:00 02/23/22 12:18 Nicotine 21 Mg P atch TRANSDERMA 1 patch DAILY JAVON Administration Oseltamivir Phosph ate 75 mg 02/21/22 18:00 02/23/22 12:18 Oseltamivir Phos phate 75 Mg Capsul e PO Not Given BID JAVON Vitals/I&O/Wt Last Vital Signs Temp 99.6 F 02/23/22 04:30 Pulse 98 02/23/22 13:23 Resp 25 H 02/23/22 13:23 BP 185/100 02/23/22 11:30 Pulse Ox 92 02/23/22 13:23 O2 Del Method 02/23/22 13:23 O2 Flow Rate 10 02/23/22 13:23 FiO2 30 02/23/22 08:33 02/22/22 02/23/22 02/23/22 22:59 06:59 14:59 Intake Total 561.121 / 1389.010 524.875 / 1913.885 246.868 / 246.868 Output Total 1000 / 1250 450 / 1700 Balance -438.879 / 139.010 74.875 / 213.885 246.868 / 246.868 Weight last 48 hrs Weight 106.339 kg Weight 96.842 kg Physical Exam Narrative: Intubated sedated on mechanical ventilation. HENMT: COMMON NORMALS: normocephalic, atraumatic, hearing grossly normal bilaterally and external ears normal HEAD & SCALP: normocephalic and atraumatic EXTERNAL EAR: Yes external ears normal Resp: COMMON NORMALS: clear to auscultation bilaterally AUSCULTATION: clear to auscultation bilaterally OTHER: Diminished air entry B/L, Coarse Breath sounds Cardio: COMMON NORMALS: regular rate, regular rhythm, S1 normal heart sound present, S2 normal heart sound present, No gallops present (Cardio), No murmurs present (Cardio), No rub (Cardio) and Peripheral pulses 2+ throughout RATE: regular rate RHYTHM: regular rhythm HEART SOUNDS: S1 normal heart sound present and S2 normal heart sound present PERIPHERAL PULSES: Peripheral pulses 2+ throughout GI: COMMON NORMALS: Normal to inspection, nondistended, normoactive bowel sounds present, Soft to palpation, non-tender, No hepatosplenomegaly present and no masses AUSCULTATION: Yes normoactive bowel sounds PALPATION: Yes Soft to palpation and Yes No hepatosplenomegaly present RECTAL EXAM: deferred Extremity: COMMON NORMALS: no clubbing, cyanosis or edema and no pedal edema Data 02/23/22 03:11 02/23/22 03:11 Micro: Microbiology 02/20/22 18:16 Gram Stain - Final Sputum - Endotracheal Tube Aspirate Sputum Culture - Final A&P Assessment and plan (1) Pneumonia: (2) Respiratory failure with hypoxia and hypercapnia: (3) Heart failure: Plan 62 year old female with PMH of HTN was a direct admit from [facility], where she went with chief complaint of SOB as well cough with productive blood tinged sputum. Assessment : Acute on chronic hypoxic hypercapnic respiratory failure secondary to pneumonia/heart failure/pulmonary hypertension/influenza Altered mental status: Possibly secondary to withdrawal Decompensated heart Failure Likely with preserved ejection fraction Pulmonary hypertension with an estimated pulmonary artery peak : systolic pressure of 48 mmHg. Pneumonia HTN Morbid Obesity Plan : CTA chest: No P/E.It showed left infrahilar adenopathy rounded infiltrate within the superior segment of left lower lobe with air bronchogram surrounding groundglass infiltrates.Subtle infiltrates in the right middle lobe. 2D echo: Normal LV size and systolic function, LVEF:73%, no RWMA, technically difficult study with poor windows. Lower extremity doppler Vein : Negative for DVT EKG : Sinus rhythm no acute ST-T wave changes Blood Culture: NTD Sputum Gram Stain and culture MRSA PCR: Negative Respiratory viral panel : Results appreciated Urine legionella antigen: Negative Urine bacterial antigen panel: Negative Currently she is empirically On Broad spectrum ABxs ( Vanco and Zosyn ) On Tamiflu Has received Lasix Monitor intake/Output Charting Monitor electrolytes. Monitor x-ray chest Duo nebs Currently on /propofol as well as fentanyl for sedation versed has been weaned off On levophed Plan for today: Patient was extubated this morning, and was placed on nasal cannula, postextubation patient was extremely agitated And violent, she was ripping her IV lines, was placed on four-point restraint, received 2 doses of Geodon, 10 mg Im, as well as 2 mg IV Ativan, has been on Precedex drip. DVT PPX: On SCDS and Lovenox Code Status :Full code. Attestations Medical Necessity Statement*: Patient needs to be in hospital for management of pneumonia altered mental status heart failure. Critical Care Time: The high probability of a clinically significant, sudden or life threatening deterioration of the patient's [] system(s) required my full and direct attention, intervention and personal management. The critical care time is as shown. This time is in addition to time spent performing any reported procedures but includes the following: [x] Data and vital sign review and interpretation [x] Patient assessment, examination and intervention [x] Documentation [x] Medication orders and management Critical Care Time (min): 90 Coding Level of Care Code Acute Nutritional Chemist for g Fwd Exam Detailed Diagnoses Pneumonia J18.9 Respiratory failure with hypoxia and hypercapnia J96.91; J96.92 Heart failure I50.9
[2022-02-23] MEDS: magnesium sulfate premix 2 GM/50 ML PIGGYBACK IV (15:01)
[2022-02-23] MEDS: dexmedetomidine 400 MCG in sodium chloride 0.9% (100 ml) 100 ML 22.12 MCG IV ×2 (16:21→20:46)
[2022-02-23] MEDS: enoxaparin 40 mg/0.4 mL Syringe SUBCUT (17:31)
[2022-02-23 17:48] LABS: Magnesium 3.3 mg/dL (1.7-2.3)
[2022-02-23] MEDS: haloperidol inj 5 mg/mL INJ 1 mL IM (20:44)
[2022-02-24] VITALS (109 sets, daily range): BP systolic 111–182; BP diastolic 64–118; PULSE 69–93; RESP 18–22; TEMP 36.9–38.3; O2SAT 85–100
[2022-02-24] MEDS: dexmedetomidine 400 MCG in sodium chloride 0.9% (100 ml) 100 ML 27.65 MCG IV ×2 (01:12→04:55)
[2022-02-24] MEDS: ipratropium-albuterol 3 mL Neb INHALATION ×4 (02:28→20:21)
[2022-02-24] MEDS: acetylcysteine 200 mg/mL SDV 4 mL INHALATION ×4 (02:29→20:21)
[2022-02-24] MEDS: LORazepam 2 mg/mL INJ 1 mL IVP ×5 (03:19→22:18)
[2022-02-24] MEDS: piperacillin-tazobactam 3.375 GM in sodium chloride 0.9% (plus) 50 ML IV ×3 (03:20→19:47)
[2022-02-24] MEDS: haloperidol inj 5 mg/mL INJ 1 mL IM (03:55)
[2022-02-24 06:31] LABS: Basophils % 0.4 %; Eosinophils # 0.2 10^3/uL (0.0-0.8); Eosinophils % 1.5 %; Hematocrit 52.3 % (37.0-47.0); Hemoglobin 16.1 g/dL (11.5-15.3); Lymphocytes # 0.9 10^3/uL (0.8-4.8); Lymphocytes % 8.3 %; Mean Corpuscular HGB Conc 30.8 g/dL (30.0-36.0); Mean Corpuscular Hemoglobin 29.1 pg (28.0-34.0); Mean Corpuscular Volume 94.4 fl (81-99); Mean Platelet Volume 9.7 fL (7.4-10.4); Monocytes # 1.1 10^3/uL (0.2-0.9); Monocytes % 10.1 %; Neutrophils # 8.84 10^3/uL (1.8-7.7); Neutrophils % 79.1 %; Nucleated Red Blood Cells % 0 %; Platelet Count 338 10^3/cmm (130-400); Red Blood Count 5.54 10^6/uL (4.1-5.3); Red Cell Distribution Width 14.2 % (12.1-15.1); White Blood Count 11.2 10^3/uL (4.0-10.0)
[2022-02-24 06:56] LABS: Anion Gap 15.9 (5-19); Blood Urea Nitrogen 19 mg/dL (8-23); Calcium 8.8 mg/dL (8.5-10.5); Carbon Dioxide 26 mmol/L (22-29); Chloride 101 mmol/L (98-107); Glomerular Filtration Rate 41.5 mL/min (90-130); Glucose 107 mg/dL (65-115); Osmolality Calculated 291 mOsm/kg (285-295); Potassium 3.9 mmol/L (3.5-5.1); Sodium 139 mmol/L (136-145)
[2022-02-24 08:18] LABS: Glucose Point of Care 112 mg/dL (70-110)
[2022-02-24] MEDS: nicotine 21 mg Patch 1 PATCH TRANSDERMA (10:25)
[2022-02-24] MEDS: dexmedetomidine 400 MCG in sodium chloride 0.9% (100 ml) 100 ML 33.18 MCG IV ×2 (10:56→13:54)
--- NOTE | 2022-02-24 13:13 | PC.NURSE ---
THroughout the morning, patient has continued to need ativan for agitation and withdrawal symptoms. Restraints still on due to patient attempting to remove monitoring, attempting removal of central line, and attempting to get out of bed despite barely being strong enough to lift hands to face. Patient yells at staff accusing us of trying to kill her and occasionally trying to kick staff when we approach. Patient has been uncooperative with care, refusing oral meds. Patient demands a drink of water, but when nurse attempts to give water she will sometimes refuse the water. Patient in frequently mumbling incoherently.
--- NOTE | 2022-02-24 17:05 | PM.PN ---
Subjective Subjective: Patient was seen and examined this morning, x-ray chest ABG was reviewed, she was successfully extubated to oxygen via nasal cannula. Post extubation patient was extremely agitated and violent requiring Geodon Precedex and Ativan. Medications: Medication Review Details: Generic Name Dose Route Start Last Admin Trade Name Freq PRN Reason Stop Dose Admin Acetaminophen 650 mg 02/20/22 18:19 02/21/22 21:49 Acetaminophen 32 5 Mg Tablet PO 650 mg Q6H PRN Administration Mild/Mod Pain Or Temp >/= 101 Acetylcysteine 200 mg 02/23/22 14:00 02/24/22 14:49 Acetylcysteine 2 00 Mg/Ml Sdv 4 Ml INHALATION 200 mg Q6H.RESP JAVON Administration Albuterol/Ipratrop ium 3 ml 02/21/22 20:00 02/24/22 14:49 Ipratropium-Albu terol 3 Ml Neb INHALATION 3 ml Q6H.RESP JAVON Administration Enoxaparin Sodium 40 mg 02/21/22 18:00 02/23/22 17:31 Enoxaparin 40 Mg /0.4 Ml Syringe SUBCUT 40 mg Q24H JAVON Administration Guaifenesin 1,200 mg 02/23/22 18:00 02/24/22 09:59 Guaifenesin 600 Mg Tablet PO Not Given BID JAVON Haloperidol Lactat e 5 mg 02/23/22 13:27 02/24/22 03:55 Haloperidol Inj 5 Mg/Ml Inj 1 Ml IM 5 mg Q6H PRN Administration AGITATION Piperacillin Sod/T azobactam 50 mls @ 12.5 mls /hr 02/20/22 18:30 02/24/22 12:45 Sod 3.375 gm/ So dium Chloride IV 12.5 mls/hr Q8H JVAON Administration Protocol Propofol 1,000 mg in 100 m ls @ 0 mls/hr 02/20/22 18:30 02/23/22 11:10 Diprivan IV Infused .Q0M JAVON Titration Protocol Per Protocol Fentanyl 1,000 mcg / Sodium 100 mls @ 0 mls/h r 02/20/22 18:30 02/23/22 08:30 Chloride IV Infused .Q0M JAVON Titration Protocol Per Protocol Norepinephrine Bit artrate 4 mg 254 mls @ 0 mls/h r 02/20/22 18:30 02/22/22 22:41 / Dextrose IV 0 mcg/min .Q0M JAVON 0 mls/hr Titration Protocol Per Protocol Dexmedetomidine HC l 400 mcg/ 104 mls @ 0 mls/h r 02/23/22 08:30 02/24/22 13:54 Sodium Chloride IV 1.2 mcg/kg/hr .Q0M JAVON 33.18 mls/hr Administration Protocol Per Protocol Lisinopril 10 mg 02/24/22 09:00 02/24/22 09:59 Lisinopril 10 Mg Tablet PO Not Given DAILY JAVON Lorazepam 2 mg 02/23/22 13:20 02/23/22 17:31 Lorazepam 2 Mg/M l Inj 1 Ml IVP 2 mg Q4H PRN Administration ANXIETY Lorazepam 2 mg 02/23/22 18:19 02/24/22 12:58 Lorazepam 2 Mg/M l Inj 1 Ml IVP 2 mg PRN PRN Administration WITHDRAWAL Protocol Metoprolol Succina te 100 mg 02/24/22 09:00 02/24/22 09:59 Metoprolol Succi tammy Er (24 Hr) 10 0 Mg Tablet PO Not Given DAILY [facility] Multivitamins Ther apeutic 1 tab 02/24/22 09:00 02/24/22 09:59 Multivitamin The rapeutic Tablet PO Not Given DAILY [facility] Nicotine 1 patch 02/23/22 12:00 02/24/22 10:25 Nicotine 21 Mg P atch TRANSDERMA 1 patch DAILY [facility] Administration Oseltamivir Phosph ate 75 mg 02/21/22 18:00 02/24/22 09:59 Oseltamivir Phos phate 75 Mg Capsul e PO Not Given BID [facility] Vitals/I&O/Wt Last Vital Signs Temp 99.6 F 02/24/22 10:45 Pulse 77 02/24/22 14:49 Resp 22 H 02/24/22 14:49 BP 145/95 02/24/22 12:00 Pulse Ox 94 02/24/22 14:49 O2 Del Method 02/24/22 14:49 O2 Flow Rate 8 02/24/22 14:49 FiO2 30 02/23/22 08:33 02/24/22 02/24/22 02/24/22 06:59 14:59 22:59 Intake Total 231.328 / 767.083 252.434 / 252.434 Output Total 150 / 400 50 / 50 Balance 81.328 / 367.083 202.434 / 202.434 Weight last 48 hrs Weight 94.982 kg Weight 106.339 kg Physical Exam Narrative: Intubated sedated on mechanical ventilation. HENMT: COMMON NORMALS: normocephalic, atraumatic, hearing grossly normal bilaterally and external ears normal HEAD & SCALP: normocephalic and atraumatic EXTERNAL EAR: Yes external ears normal Resp: COMMON NORMALS: clear to auscultation bilaterally AUSCULTATION: clear to auscultation bilaterally OTHER: Diminished air entry B/L, Coarse Breath sounds Cardio: COMMON NORMALS: regular rate, regular rhythm, S1 normal heart sound present, S2 normal heart sound present, No gallops present (Cardio), No murmurs present (Cardio), No rub (Cardio) and Peripheral pulses 2+ throughout RATE: regular rate RHYTHM: regular rhythm HEART SOUNDS: S1 normal heart sound present and S2 normal heart sound present PERIPHERAL PULSES: Peripheral pulses 2+ throughout GI: COMMON NORMALS: Normal to inspection, nondistended, normoactive bowel sounds present, Soft to palpation, non-tender, No hepatosplenomegaly present and no masses AUSCULTATION: Yes normoactive bowel sounds PALPATION: Yes Soft to palpation and Yes No hepatosplenomegaly present RECTAL EXAM: deferred Extremity: COMMON NORMALS: no clubbing, cyanosis or edema and no pedal edema Data 02/24/22 05:59 02/24/22 05:59 A&P Assessment and plan (1) Pneumonia: (2) Respiratory failure with hypoxia and hypercapnia: (3) Heart failure: (4) CLIF (acute kidney injury): (5) Altered mental status: (6) Alcohol abuse with alcohol-induced disorder: Plan 62 year old female with PMH of HTN was a direct admit from [facility], where she went with chief complaint of SOB as well cough with productive blood tinged sputum. Assessment : Acute on chronic hypoxic hypercapnic respiratory failure secondary to pneumonia/heart failure/pulmonary hypertension/influenza Altered mental status: Possibly secondary to withdrawal, currently alleged culprit is thought to be alcohol. Decompensated heart Failure Likely with preserved ejection fraction Pulmonary hypertension with an estimated pulmonary artery peak : systolic pressure of 48 mmHg. Pneumonia HTN Morbid Obesity Mild CLIF Plan : CTA chest: No P/E.It showed left infrahilar adenopathy rounded infiltrate within the superior segment of left lower lobe with air bronchogram surrounding groundglass infiltrates.Subtle infiltrates in the right middle lobe. 2D echo: Normal LV size and systolic function, LVEF:73%, no RWMA, technically difficult study with poor windows. Lower extremity doppler Vein : Negative for DVT EKG : Sinus rhythm no acute ST-T wave changes Blood Culture: NTD Sputum Gram Stain and culture MRSA PCR: Negative Respiratory viral panel : Results appreciated Urine legionella antigen: Negative Urine bacterial antigen panel: Negative Currently she is empirically On Broad spectrum ABxs ( Vanco and Zosyn ) On Tamiflu Has received Lasix Monitor intake/Output Charting Monitor electrolytes. Monitor x-ray chest Duo nebs Was on propofol as well as fentanyl for sedation versed has been weaned off. Was transiently on levophed : Possibly secondary to propofol. S/p extubation: post extubation patient was extremely agitated,And violent, she was ripping her IV lines, was placed on four-point restraint, received 2 doses of Geodon, 10 mg Im, as well as 2 mg IV Ativan, has been on Precedex drip. Later it was informed by the family that she has history of alcohol abuse disorder. I also presume that she has underlying undiagnosed intermittent explosive disorder, currently she is on CIWA protocol, for possible atypical delayed alcohol withdrawal. DVT PPX: On SCDS and Lovenox Code Status :Full code. Attestations Medical Necessity Statement*: Patient is to be in hospital for management of withdrawal, possibly alcohol. Time Spent in Patient Care: Greater than 35 minutes Critical Care Time: The high probability of a clinically significant, sudden or life threatening deterioration of the patient's [] system(s) required my full and direct attention, intervention and personal management. The critical care time is as shown. This time is in addition to time spent performing any reported procedures but includes the following: [x] Data and vital sign review and interpretation [x] Patient assessment, examination and intervention [x] Documentation [x] Medication orders and management Critical Care Time (min): 30 Coding Level of Care Code Acute Chief Medical Technologist for Chg Fwd Diagnoses Pneumonia J18.9 Respiratory failure with hypoxia and hypercapnia J96.91; J96.92 Heart failure I50.9 CLIF (acute kidney injury) N17.9 Altered mental status R41.82 Alcohol abuse with alcohol-induced disorder F10.19
[2022-02-24] MEDS: enoxaparin 40 mg/0.4 mL Syringe SUBCUT (17:28)
[2022-02-24] MEDS: dexmedetomidine 400 MCG in sodium chloride 0.9% (100 ml) 100 ML 19.35 MCG IV (17:54)
--- NOTE | 2022-02-24 18:10 | PC.NURSE ---
SHift SUmmary: Uneventful shift. Patient continues to have withdrawal symptoms, but they have shown improvement throughout the day. Less frequent ativan administrations and precedex has been titrated down. Haldol has not been needed today. Patient's mental status has been variable ranging from lethargic, to yelling at and attempting to hit nursing staff.
--- NOTE | 2022-02-24 20:59 | PC.NURSE ---
2014- pt states she has had a bowel movement, is pleasant and oriented, partial bath and linen change performed, pt positioned for comfort, sips of water given, tv on at patients request, denies other needs at this time, told patient nurse would return soon. 2049- pt screaming in room, when nurse enters she screams give me some water you fucking bitch at nurse. Pt states nurse has not been in room all shift or given any water, continues to verbally abuse staff as nurse tries to reorient to situation, upon attempt to determine orientation of patient, patient refuses to answer any questions. nurse unsure if patient is confused or just combative. pt drinks a whole glass of water, continues to scream at nurse, precedex gtt increased at this time and nurse leaves room for patient to calm herself. will monitor.
[2022-02-25] VITALS (57 sets, daily range): BP systolic 116–163; BP diastolic 66–90; PULSE 74–99; RESP 16–18; TEMP 36.9–37.7; O2SAT 87–98
[2022-02-25] MEDS: dexmedetomidine 400 MCG in sodium chloride 0.9% (100 ml) 100 ML 16.59 MCG IV (00:12)
[2022-02-25] MEDS: ipratropium-albuterol 3 mL Neb INHALATION ×4 (03:24→20:34)
[2022-02-25] MEDS: acetylcysteine 200 mg/mL SDV 4 mL INHALATION ×4 (03:24→20:34)
[2022-02-25] MEDS: piperacillin-tazobactam 3.375 GM in sodium chloride 0.9% (plus) 50 ML IV ×3 (03:29→19:12)
[2022-02-25 05:49] LABS: Basophils # 0.1 10^3/uL (0.0-0.1); Basophils % 0.4 %; Eosinophils # 0.3 10^3/uL (0.0-0.8); Hemoglobin 15.6 g/dL (11.5-15.3); Lymphocytes % 8.9 %; Mean Corpuscular HGB Conc 30.6 g/dL (30.0-36.0); Mean Corpuscular Volume 94.8 fl (81-99); Mean Platelet Volume 9.5 fL (7.4-10.4); Monocytes # 1.3 10^3/uL (0.2-0.9); Monocytes % 11.5 %; Neutrophils # 8.51 10^3/uL (1.8-7.7); Neutrophils % 75.6 %; Nucleated Red Blood Cells % 0 %; Platelet Count 373 10^3/cmm (130-400); Red Blood Count 5.38 10^6/uL (4.1-5.3); Red Cell Distribution Width 14.1 % (12.1-15.1); White Blood Count 11.3 10^3/uL (4.0-10.0)
[2022-02-25 06:07] LABS: Anion Gap 12.7 (5-19); Blood Urea Nitrogen 22 mg/dL (8-23); Calcium 8.8 mg/dL (8.5-10.5); Carbon Dioxide 29 mmol/L (22-29); Chloride 104 mmol/L (98-107); Glomerular Filtration Rate 84.8 mL/min (90-130); Glucose 99 mg/dL (65-115); Osmolality Calculated 297 mOsm/kg (285-295); Potassium 3.7 mmol/L (3.5-5.1); Sodium 142 mmol/L (136-145)
[2022-02-25] MEDS: dexmedetomidine 400 MCG in sodium chloride 0.9% (100 ml) 100 ML 11.06 MCG IV (08:26)
[2022-02-25] MEDS: nicotine 21 mg Patch 1 PATCH TRANSDERMA (09:09)
[2022-02-25] MEDS: metoprolol succinate ER (24 HR) 100 mg Tablet PO (09:09)
[2022-02-25] MEDS: guaiFENesin 600 mg Tablet 1200 MG PO ×2 (09:09→17:46)
[2022-02-25] MEDS: multivitamin therapeutic Tablet 1 TAB PO (09:09)
[2022-02-25] MEDS: oseltamivir phosphate 75 mg Capsule PO ×2 (09:09→17:45)
[2022-02-25] MEDS: lisinopril 10 mg Tablet PO (09:09)
--- NOTE | 2022-02-25 09:46 | PC.NURSE ---
Patient is cooperative with care and up to chair with two person assist.
--- NOTE | 2022-02-25 13:20 | PC.SOCIAL ---
IMM update Imm updated with patient at bedside. Copy of page 2 provided. Patient verbalized understanding. Copy in chart initialed, dated and timed.
--- NOTE | 2022-02-25 14:52 | PM.PN ---
Subjective Subjective: Patient was seen and examined this morning, she is much more pleasant today, holding a decent conversation, unfortunately she had a temperature spike of 101 yesterday. Medications: Medication Review Details: Generic Name Dose Route Start Last Admin Trade Name Leslie PRN Reason Stop Dose Admin Acetaminophen 650 mg 02/20/22 18:19 02/21/22 21:49 Acetaminophen 32 5 Mg Tablet PO 650 mg Q6H PRN Administration Mild/Mod Pain Or Temp >/= 101 Acetylcysteine 200 mg 02/23/22 14:00 02/25/22 14:45 Acetylcysteine 2 00 Mg/Ml Sdv 4 Ml INHALATION 200 mg Q6H.RESP JAVON Administration Albuterol/Ipratrop ium 3 ml 02/21/22 20:00 02/25/22 14:45 Ipratropium-Albu terol 3 Ml Neb INHALATION 3 ml Q6H.RESP JAVON Administration Enoxaparin Sodium 40 mg 02/21/22 18:00 02/24/22 17:28 Enoxaparin 40 Mg /0.4 Ml Syringe SUBCUT 40 mg Q24H JAVON Administration Guaifenesin 1,200 mg 02/23/22 18:00 02/25/22 09:09 Guaifenesin 600 Mg Tablet PO 1,200 mg BID JAVON Administration Haloperidol Lactat e 5 mg 02/23/22 13:27 02/24/22 03:55 Haloperidol Inj 5 Mg/Ml Inj 1 Ml IM 5 mg Q6H PRN Administration AGITATION Piperacillin Sod/T azobactam 50 mls @ 12.5 mls /hr 02/20/22 18:30 02/25/22 12:43 Sod 3.375 gm/ So dium Chloride IV 12.5 mls/hr Q8H JAVON Administration Protocol Propofol 1,000 mg in 100 m ls @ 0 mls/hr 02/20/22 18:30 02/23/22 11:10 Diprivan IV Infused .Q0M JAVON Titration Protocol Per Protocol Norepinephrine Bit artrate 4 mg 254 mls @ 0 mls/h r 02/20/22 18:30 02/22/22 22:41 / Dextrose IV 0 mcg/min .Q0M JAVON 0 mls/hr Titration Protocol Per Protocol Dexmedetomidine HC l 400 mcg/ 104 mls @ 0 mls/h r 02/23/22 08:30 02/25/22 08:26 Sodium Chloride IV 0.4 mcg/kg/hr .Q0M JAVON 11.06 mls/hr Administration Protocol Per Protocol Lisinopril 10 mg 02/24/22 09:00 02/25/22 09:09 Lisinopril 10 Mg Tablet PO 10 mg DAILY JAVON Administration Lorazepam 2 mg 02/23/22 13:20 02/23/22 17:31 Lorazepam 2 Mg/M l Inj 1 Ml IVP 2 mg Q4H PRN Administration ANXIETY Lorazepam 2 mg 02/23/22 18:19 02/24/22 22:18 Lorazepam 2 Mg/M l Inj 1 Ml IVP 2 mg PRN PRN Administration WITHDRAWAL Protocol Metoprolol Succina te 100 mg 02/24/22 09:00 02/25/22 09:09 Metoprolol Succi tammy Er (24 Hr) 10 0 Mg Tablet PO 100 mg DAILY JAVON Administration Multivitamins Ther apeutic 1 tab 02/24/22 09:00 02/25/22 09:09 Multivitamin The rapeutic Tablet PO 1 tab DAILY JAVON Administration Nicotine 1 patch 02/23/22 12:00 02/25/22 09:09 Nicotine 21 Mg P atch TRANSDERMA 1 patch DAILY JAVON Administration Oseltamivir Phosph ate 75 mg 02/21/22 18:00 02/25/22 09:09 Oseltamivir Phos phate 75 Mg Capsul e PO 75 mg BID JAVON Administration Vitals/I&O/Wt Last Vital Signs Temp 99.8 F H 02/25/22 10:38 Pulse 90 02/25/22 14:50 Resp 16 02/25/22 14:45 BP 117/79 02/25/22 11:00 Pulse Ox 93 02/25/22 14:45 O2 Del Method 02/25/22 14:45 O2 Flow Rate 8 02/25/22 14:45 FiO2 30 02/23/22 08:33 02/24/22 02/25/22 02/25/22 22:59 06:59 14:59 Intake Total 394.928 / 658.283 498.648 / 1156.931 50 / 50 Output Total 1525 / 1575 650 / 2225 Balance -1130.072 / -916.717 -151.352 / -1068.069 50 / 50 Weight last 48 hrs Weight 93.667 kg Weight 94.982 kg Physical Exam HENMT: COMMON NORMALS: normocephalic, atraumatic, hearing grossly normal bilaterally and external ears normal HEAD & SCALP: normocephalic and atraumatic EXTERNAL EAR: Yes external ears normal Resp: COMMON NORMALS: clear to auscultation bilaterally AUSCULTATION: clear to auscultation bilaterally OTHER: Diminished air entry B/L Cardio: COMMON NORMALS: regular rate, regular rhythm, S1 normal heart sound present, S2 normal heart sound present, No gallops present (Cardio), No murmurs present (Cardio), No rub (Cardio) and Peripheral pulses 2+ throughout RATE: regular rate RHYTHM: regular rhythm HEART SOUNDS: S1 normal heart sound present and S2 normal heart sound present PERIPHERAL PULSES: Peripheral pulses 2+ throughout GI: COMMON NORMALS: Normal to inspection, nondistended, normoactive bowel sounds present, Soft to palpation, non-tender, No hepatosplenomegaly present and no masses AUSCULTATION: Yes normoactive bowel sounds PALPATION: Yes Soft to palpation and Yes No hepatosplenomegaly present RECTAL EXAM: deferred Extremity: COMMON NORMALS: no clubbing, cyanosis or edema and no pedal edema Data 02/25/22 04:55 02/25/22 04:55 A&P Assessment and plan (1) Pneumonia: (2) Respiratory failure with hypoxia and hypercapnia: (3) Heart failure: (4) CLIF (acute kidney injury): (5) Altered mental status: (6) Alcohol abuse with alcohol-induced disorder: (7) Fever: Plan 62 year old female with PMH of HTN was a direct admit from [facility], where she went with chief complaint of SOB as well cough with productive blood tinged sputum. Assessment : Acute on chronic hypoxic hypercapnic respiratory failure secondary to pneumonia/heart failure/pulmonary hypertension/influenza Altered mental status: Possibly secondary to withdrawal, currently alleged culprit is thought to be alcohol. Decompensated heart Failure Likely with preserved ejection fraction Pulmonary hypertension with an estimated pulmonary artery peak : systolic pressure of 48 mmHg. Pneumonia Fever HTN Morbid Obesity Mild CLIF: Resolved Plan : CTA chest: No P/E.It showed left infrahilar adenopathy rounded infiltrate within the superior segment of left lower lobe with air bronchogram surrounding groundglass infiltrates.Subtle infiltrates in the right middle lobe. 2D echo: Normal LV size and systolic function, LVEF:73%, no RWMA, technically difficult study with poor windows. Lower extremity doppler Vein : Negative for DVT EKG : Sinus rhythm no acute ST-T wave changes Blood Culture: NTD Sputum Gram Stain and culture MRSA PCR: Negative Respiratory viral panel : Results appreciated Urine legionella antigen: Negative Urine bacterial antigen panel: Negative Currently she is empirically On Broad spectrum ABxs ( Vanco and Zosyn ) On Tamiflu Has received Lasix Monitor intake/Output Charting Monitor electrolytes. Monitor x-ray chest Duo bunny Was on propofol as well as fentanyl for sedation versed has been weaned off. Was transiently on levophed : Possibly secondary to propofol. S/p extubation: post extubation patient was extremely agitated,And violent, she was ripping her IV lines, was placed on four-point restraint, received 2 doses of Geodon, 10 mg Im, as well as 2 mg IV Ativan, has been on Precedex drip. Later it was informed by the family that she has history of alcohol abuse disorder. I also presume that she has underlying undiagnosed intermittent explosive disorder, currently she is on CIWA protocol, for possible atypical delayed alcohol withdrawal. DVT PPX: On SCDS and Lovenox Code Status :Full code. Plan for today: Try to wean her off Precedex, continue to monitor CIWA, start on clear liquid diets, get speech and swallow evaluation. Attestations Medical Necessity Statement*: In hospital for management of altered mental status. Time Spent in Patient Care: Greater than 35 minutes (>than 50% of time spent in counselling and/or direct pt care on unit). Coding Level of Care Code Acute Manager Call for Chg Fwd Diagnoses Pneumonia J18.9 Respiratory failure with hypoxia and hypercapnia J96.91; J96.92 Heart failure I50.9 CLIF (acute kidney injury) N17.9 Altered mental status R41.82 Alcohol abuse with alcohol-induced disorder F10.19 Fever R50.9
[2022-02-25] MEDS: enoxaparin 40 mg/0.4 mL Syringe SUBCUT (17:45)
--- NOTE | 2022-02-25 18:18 | PC.NURSE ---
This nurse entered patients room and noticed that oxygen was pulled off and central line dressing was not in place and the line itself had been pulled back. This nurse noticed that the site was wet looking. Nurse asked patient what happened and she stated, The tape was bothering me so I poured my mt. dew on it so I could take it off. This nurse called Dr. Kaminski and he gave verbal order to removed central line.
[2022-02-26] VITALS (36 sets, daily range): BP systolic 121–163; BP diastolic 66–94; PULSE 71–106; RESP 16–20; TEMP 36.4–37.1; O2SAT 81–97
[2022-02-26] MEDS: ipratropium-albuterol 3 mL Neb INHALATION ×4 (02:53→20:31)
[2022-02-26] MEDS: piperacillin-tazobactam 3.375 GM in sodium chloride 0.9% (plus) 50 ML IV ×3 (03:29→21:19)
[2022-02-26] MEDS: diphenhydrAMINE 50 mg/mL SDV 1mL 25 MG IVP ×2 (04:50→18:27)
[2022-02-26 06:29] LABS: Basophils # 0.1 10^3/uL (0.0-0.1); Basophils % 0.5 %; Eosinophils # 0.4 10^3/uL (0.0-0.8); Eosinophils % 4.4 %; Hematocrit 51.7 % (37.0-47.0); Hemoglobin 15.5 g/dL (11.5-15.3); Lymphocytes # 1.1 10^3/uL (0.8-4.8); Lymphocytes % 11.4 %; Mean Corpuscular Hemoglobin 28.5 pg (28.0-34.0); Mean Corpuscular Volume 95.2 fl (81-99); Mean Platelet Volume 9.4 fL (7.4-10.4); Monocytes # 1.4 10^3/uL (0.2-0.9); Monocytes % 14.7 %; Neutrophils # 6.37 10^3/uL (1.8-7.7); Nucleated Red Blood Cells % 0 %; Platelet Count 460 10^3/cmm (130-400); Red Blood Count 5.43 10^6/uL (4.1-5.3); Red Cell Distribution Width 13.9 % (12.1-15.1); White Blood Count 9.4 10^3/uL (4.0-10.0)
--- NOTE | 2022-02-26 06:48 | PM.PN ---
Subjective Subjective: Patient was seen and examined this morning, overall she is doing much better, still has cough with productive sputum, currently saturating well on 4 to 8 Ls supplemental oxygen through nasal cannula, Has been afebrile overnight.Was in good mood. Medications: Medication Review Details: Generic Name Dose Route Start Last Admin Trade Name Freq PRN Reason Stop Dose Admin Acetaminophen 650 mg 02/20/22 18:19 02/21/22 21:49 Acetaminophen 32 5 Mg Tablet PO 650 mg Q6H PRN Administration Mild/Mod Pain Or Temp >/= 101 Acetylcysteine 200 mg 02/23/22 14:00 02/25/22 20:34 Acetylcysteine 2 00 Mg/Ml Sdv 4 Ml INHALATION 200 mg Q6H.RESP JAVON Administration Albuterol/Ipratrop ium 3 ml 02/21/22 20:00 02/26/22 02:53 Ipratropium-Albu terol 3 Ml Neb INHALATION 3 ml Q6H.RESP JAVON Administration Enoxaparin Sodium 40 mg 02/21/22 18:00 02/25/22 17:45 Enoxaparin 40 Mg /0.4 Ml Syringe SUBCUT 40 mg Q24H JAVON Administration Guaifenesin 1,200 mg 02/23/22 18:00 02/25/22 17:46 Guaifenesin 600 Mg Tablet PO 1,200 mg BID JAVON Administration Haloperidol Lactat e 5 mg 02/23/22 13:27 02/24/22 03:55 Haloperidol Inj 5 Mg/Ml Inj 1 Ml IM 5 mg Q6H PRN Administration AGITATION Piperacillin Sod/T azobactam 50 mls @ 12.5 mls /hr 02/20/22 18:30 02/26/22 03:29 Sod 3.375 gm/ So dium Chloride IV 12.5 mls/hr Q8H JAVON Administration Protocol Norepinephrine Bit artrate 4 mg 254 mls @ 0 mls/h r 02/20/22 18:30 02/22/22 22:41 / Dextrose IV 0 mcg/min .Q0M JAVON 0 mls/hr Titration Protocol Per Protocol Dexmedetomidine HC l 400 mcg/ 104 mls @ 0 mls/h r 02/23/22 08:30 02/25/22 17:00 Sodium Chloride IV 0 mcg/kg/hr .Q0M JAVON 0 mls/hr Titration Protocol Per Protocol Lisinopril 10 mg 02/24/22 09:00 02/25/22 09:09 Lisinopril 10 Mg Tablet PO 10 mg DAILY JAVON Administration Lorazepam 2 mg 02/23/22 13:20 02/23/22 17:31 Lorazepam 2 Mg/M l Inj 1 Ml IVP 2 mg Q4H PRN Administration ANXIETY Lorazepam 2 mg 02/23/22 18:19 02/24/22 22:18 Lorazepam 2 Mg/M l Inj 1 Ml IVP 2 mg PRN PRN Administration WITHDRAWAL Protocol Metoprolol Succina te 100 mg 02/24/22 09:00 02/25/22 09:09 Metoprolol Succi tammy Er (24 Hr) 10 0 Mg Tablet PO 100 mg DAILY JAVON Administration Multivitamins Ther apeutic 1 tab 02/24/22 09:00 02/25/22 09:09 Multivitamin The rapeutic Tablet PO 1 tab DAILY JAVON Administration Nicotine 1 patch 02/23/22 12:00 02/25/22 09:09 Nicotine 21 Mg P atch TRANSDERMA 1 patch DAILY JAVON Administration Oseltamivir Phosph ate 75 mg 02/21/22 18:00 02/25/22 17:45 Oseltamivir Phos phate 75 Mg Capsul e PO 75 mg BID JAVON Administration Vitals/I&O/Wt Last Vital Signs Temp 98.4 F 02/26/22 05:24 Pulse 95 02/26/22 05:54 Resp 18 02/26/22 02:55 BP 125/66 02/25/22 18:00 Pulse Ox 94 02/26/22 02:55 O2 Del Method 02/26/22 05:24 O2 Flow Rate 6 02/26/22 05:24 FiO2 30 02/23/22 08:33 02/25/22 02/25/22 02/26/22 14:59 22:59 06:59 Intake Total 50 / 50 744.747 / 794.747 350 / 1144.747 Output Total 1250 / 1250 400 / 1650 Balance 50 / 50 -505.253 / -455.253 -50 / -505.253 Weight last 48 hrs Weight 93.803 kg Weight 93.667 kg Physical Exam HENMT: COMMON NORMALS: normocephalic, atraumatic and hearing grossly normal bilaterally HEAD & SCALP: normocephalic and atraumatic Resp: COMMON NORMALS: clear to auscultation bilaterally AUSCULTATION: clear to auscultation bilaterally OTHER: Diminished air entry B/L Cardio: COMMON NORMALS: regular rate, regular rhythm, S1 normal heart sound present, S2 normal heart sound present, No gallops present (Cardio), No murmurs present (Cardio), No rub (Cardio) and Peripheral pulses 2+ throughout RATE: regular rate RHYTHM: regular rhythm HEART SOUNDS: S1 normal heart sound present and S2 normal heart sound present PERIPHERAL PULSES: Peripheral pulses 2+ throughout GI: COMMON NORMALS: Normal to inspection, nondistended, normoactive bowel sounds present, Soft to palpation, non-tender, No hepatosplenomegaly present and no masses AUSCULTATION: Yes normoactive bowel sounds PALPATION: Yes Soft to palpation and Yes No hepatosplenomegaly present RECTAL EXAM: deferred Extremity: COMMON NORMALS: no clubbing, cyanosis or edema and no pedal edema Data 02/26/22 04:45 02/25/22 04:55 Micro: Microbiology 02/26/22 04:50 Blood Culture - Preliminary Blood SPECIMEN COLLECTED 02/26/22 04:45 Blood Culture - Preliminary Blood SPECIMEN COLLECTED 02/20/22 19:22 Blood Culture - Final Blood NO GROWTH AFTER 5 DAYS 02/20/22 19:13 Blood Culture - Final Blood NO GROWTH AFTER 5 DAYS A&P Assessment and plan (1) Pneumonia: (2) Respiratory failure with hypoxia and hypercapnia: (3) Heart failure: (4) CLIF (acute kidney injury): (5) Altered mental status: (6) Alcohol abuse with alcohol-induced disorder: (7) Fever: Plan 62 year old female with PMH of HTN was a direct admit from [facility], where she went with chief complaint of SOB as well cough with productive blood tinged sputum. Assessment : Acute on chronic hypoxic hypercapnic respiratory failure secondary to pneumonia/heart failure/pulmonary hypertension/influenza Altered mental status: Possibly secondary to withdrawal, currently alleged culprit is thought to be alcohol. Decompensated heart Failure Likely with preserved ejection fraction Pulmonary hypertension with an estimated pulmonary artery peak : systolic pressure of 48 mmHg. Pneumonia Fever HTN Morbid Obesity Mild CLIF: Resolved Plan : CTA chest: No P/E.It showed left infrahilar adenopathy rounded infiltrate within the superior segment of left lower lobe with air bronchogram surrounding groundglass infiltrates.Subtle infiltrates in the right middle lobe. 2D echo: Normal LV size and systolic function, LVEF:73%, no RWMA, technically difficult study with poor windows. Lower extremity doppler Vein : Negative for DVT EKG : Sinus rhythm no acute ST-T wave changes Blood Culture: NTD Repeat blood cultures: Sputum Gram Stain and culture : Many white blood cells no organisms seen. MRSA PCR: Negative Respiratory viral panel : Results appreciated Urine legionella antigen: Negative Urine bacterial antigen panel: Negative Currently she is empirically On Broad spectrum ABxs ( Vanco and Zosyn ) On Tamiflu Has received Lasix Monitor intake/Output Charting Monitor electrolytes. Monitor x-ray chest Duo nebs Was on propofol as well as fentanyl for sedation versed has been weaned off. Was transiently on levophed : Possibly secondary to propofol. S/p extubation: post extubation patient was extremely agitated,And violent, she was ripping her IV lines, was placed on four-point restraint, received 2 doses of Geodon, 10 mg Im, as well as 2 mg IV Ativan, has been on Precedex drip. Later it was informed by the family that she has history of alcohol abuse disorder. I also presume that she has underlying undiagnosed intermittent explosive disorder, currently she is on CIWA protocol, for possible atypical delayed alcohol withdrawal. DVT PPX: On SCDS and Lovenox Code Status :Full code. Plan for today: Continue with conservative respiratory support measures, patient will likely be ready for discharge in next 24 to 48 hours. Attestations Medical Necessity Statement*: Patient is to be in hospital management of pneumonia. Coding Level of Care Code Acute Carrot Buncher for Maria E Cortez Exam Detailed Diagnoses Pneumonia J18.9 Respiratory failure with hypoxia and hypercapnia J96.91; J96.92 Heart failure I50.9 CLIF (acute kidney injury) N17.9 Altered mental status R41.82 Alcohol abuse with alcohol-induced disorder F10.19 Fever R50.9
[2022-02-26 06:56] LABS: Anion Gap 14.3 (5-19); Blood Urea Nitrogen 16 mg/dL (8-23); Calcium 8.5 mg/dL (8.5-10.5); Carbon Dioxide 30 mmol/L (22-29); Chloride 102 mmol/L (98-107); Glomerular Filtration Rate 161.7 mL/min (90-130); Glucose 87 mg/dL (65-115); Osmolality Calculated 297 mOsm/kg (285-295); Potassium 3.3 mmol/L (3.5-5.1); Sodium 143 mmol/L (136-145)
[2022-02-26] MEDS: acetylcysteine 200 mg/mL SDV 4 mL INHALATION ×2 (08:13→14:11)
[2022-02-26] MEDS: multivitamin therapeutic Tablet 1 TAB PO (08:17)
[2022-02-26] MEDS: nicotine 21 mg Patch 1 PATCH TRANSDERMA (08:17)
[2022-02-26] MEDS: lisinopril 10 mg Tablet PO (08:17)
[2022-02-26] MEDS: oseltamivir phosphate 75 mg Capsule PO ×2 (08:17→16:59)
[2022-02-26] MEDS: guaiFENesin 600 mg Tablet 1200 MG PO ×2 (08:17→16:59)
[2022-02-26] MEDS: metoprolol succinate ER (24 HR) 100 mg Tablet PO (08:17)
[2022-02-26] MEDS: potassium chloride ER 20 mEq Tablet 40 MEQ PO (09:58)
[2022-02-26] MEDS: enoxaparin 40 mg/0.4 mL Syringe SUBCUT (16:59)
[2022-02-27] VITALS (9 sets, daily range): BP systolic 127–173; BP diastolic 68–92; PULSE 71–88; RESP 15–18; TEMP 36.4–37; O2SAT 91–96
[2022-02-27] MEDS: acetaminophen 325 mg Tablet 650 MG PO ×2 (01:09→15:06)
[2022-02-27] MEDS: ipratropium-albuterol 3 mL Neb INHALATION ×4 (03:06→21:00)
[2022-02-27] MEDS: piperacillin-tazobactam 3.375 GM in sodium chloride 0.9% (plus) 50 ML IV ×2 (04:58→12:20)
[2022-02-27 05:45] LABS: Basophils # 0.1 10^3/uL (0.0-0.1); Basophils % 1.1 %; Eosinophils # 0.4 10^3/uL (0.0-0.8); Eosinophils % 5.6 %; Hematocrit 52.3 % (37.0-47.0); Hemoglobin 15.6 g/dL (11.5-15.3); Lymphocytes # 1.1 10^3/uL (0.8-4.8); Lymphocytes % 15.7 %; Mean Corpuscular HGB Conc 29.8 g/dL (30.0-36.0); Mean Corpuscular Hemoglobin 28.6 pg (28.0-34.0); Mean Corpuscular Volume 95.8 fl (81-99); Mean Platelet Volume 9.3 fL (7.4-10.4); Monocytes # 1.2 10^3/uL (0.2-0.9); Monocytes % 16.2 %; Neutrophils # 4.36 10^3/uL (1.8-7.7); Nucleated Red Blood Cells % 0 %; Platelet Count 486 10^3/cmm (130-400); Red Blood Count 5.46 10^6/uL (4.1-5.3); Red Cell Distribution Width 13.8 % (12.1-15.1); White Blood Count 7.3 10^3/uL (4.0-10.0)
[2022-02-27 06:11] LABS: Blood Urea Nitrogen 17 mg/dL (8-23); Calcium 8.5 mg/dL (8.5-10.5); Carbon Dioxide 31 mmol/L (22-29); Chloride 102 mmol/L (98-107); Glomerular Filtration Rate 225.4 mL/min (90-130); Glucose 104 mg/dL (65-115); Osmolality Calculated 294 mOsm/kg (285-295); Sodium 141 mmol/L (136-145)
[2022-02-27] MEDS: acetylcysteine 200 mg/mL SDV 4 mL INHALATION ×2 (07:56→13:48)
[2022-02-27] MEDS: sodium chloride 3.5% neb 4 mL Neb INHALATION ×2 (07:56→13:48)
--- NOTE | 2022-02-27 08:51 | PC.SOCIAL ---
IMM Update pg 2 of IMM updated and reviewed w/ patient. Copy provided and Copy in chart dated and initialed.
[2022-02-27] MEDS: multivitamin therapeutic Tablet 1 TAB PO (09:25)
[2022-02-27] MEDS: lisinopril 10 mg Tablet PO (09:25)
[2022-02-27] MEDS: metoprolol succinate ER (24 HR) 100 mg Tablet PO (09:25)
[2022-02-27] MEDS: nicotine 21 mg Patch 1 PATCH TRANSDERMA (09:26)
[2022-02-27] MEDS: oseltamivir phosphate 75 mg Capsule PO (09:32)
--- NOTE | 2022-02-27 14:50 | PM.PN ---
Subjective Subjective: feels better today, still has bouts of cough which are bothersome but overall improving. on 4lpm supplemental 02. No new complaints today Medications: Medication Review Details: Generic Name Dose Route Start Last Admin Trade Name Leslie PRN Reason Stop Dose Admin Acetaminophen 650 mg 02/20/22 18:19 02/21/22 21:49 Acetaminophen 32 5 Mg Tablet PO 650 mg Q6H PRN Administration Mild/Mod Pain Or Temp >/= 101 Acetylcysteine 200 mg 02/23/22 14:00 02/25/22 20:34 Acetylcysteine 2 00 Mg/Ml Sdv 4 Ml INHALATION 200 mg Q6H.RESP JAVON Administration Albuterol/Ipratrop ium 3 ml 02/21/22 20:00 02/26/22 02:53 Ipratropium-Albu terol 3 Ml Neb INHALATION 3 ml Q6H.RESP JAVON Administration Enoxaparin Sodium 40 mg 02/21/22 18:00 02/25/22 17:45 Enoxaparin 40 Mg /0.4 Ml Syringe SUBCUT 40 mg Q24H JAVON Administration Guaifenesin 1,200 mg 02/23/22 18:00 02/25/22 17:46 Guaifenesin 600 Mg Tablet PO 1,200 mg BID JAVON Administration Haloperidol Lactat e 5 mg 02/23/22 13:27 02/24/22 03:55 Haloperidol Inj 5 Mg/Ml Inj 1 Ml IM 5 mg Q6H PRN Administration AGITATION Piperacillin Sod/T azobactam 50 mls @ 12.5 mls /hr 02/20/22 18:30 02/26/22 03:29 Sod 3.375 gm/ So dium Chloride IV 12.5 mls/hr Q8H JAVON Administration Protocol Norepinephrine Bit artrate 4 mg 254 mls @ 0 mls/h r 02/20/22 18:30 02/22/22 22:41 / Dextrose IV 0 mcg/min .Q0M JAVON 0 mls/hr Titration Protocol Per Protocol Dexmedetomidine HC l 400 mcg/ 104 mls @ 0 mls/h r 02/23/22 08:30 02/25/22 17:00 Sodium Chloride IV 0 mcg/kg/hr .Q0M JAVON 0 mls/hr Titration Protocol Per Protocol Lisinopril 10 mg 02/24/22 09:00 02/25/22 09:09 Lisinopril 10 Mg Tablet PO 10 mg DAILY JAVON Administration Lorazepam 2 mg 02/23/22 13:20 02/23/22 17:31 Lorazepam 2 Mg/M l Inj 1 Ml IVP 2 mg Q4H PRN Administration ANXIETY Lorazepam 2 mg 02/23/22 18:19 02/24/22 22:18 Lorazepam 2 Mg/M l Inj 1 Ml IVP 2 mg PRN PRN Administration WITHDRAWAL Protocol Metoprolol Succina te 100 mg 02/24/22 09:00 02/25/22 09:09 Metoprolol Succi tammy Er (24 Hr) 10 0 Mg Tablet PO 100 mg DAILY JAVON Administration Multivitamins Ther apeutic 1 tab 02/24/22 09:00 02/25/22 09:09 Multivitamin The rapeutic Tablet PO 1 tab DAILY JAVON Administration Nicotine 1 patch 02/23/22 12:00 02/25/22 09:09 Nicotine 21 Mg P atch TRANSDERMA 1 patch DAILY JAVON Administration Oseltamivir Phosph ate 75 mg 02/21/22 18:00 02/25/22 17:45 Oseltamivir Phos phate 75 Mg Capsul e PO 75 mg BID JAVON Administration Vitals/I&O/Wt Last Vital Signs Temp 97.6 F 02/27/22 11:58 Pulse 88 02/27/22 13:56 Resp 18 02/27/22 13:48 BP 171/91 02/27/22 11:58 Pulse Ox 96 02/27/22 13:48 O2 Del Method 02/27/22 13:48 O2 Flow Rate 3.5 02/27/22 13:48 FiO2 30 02/23/22 08:33 02/26/22 02/27/22 02/27/22 22:59 06:59 14:59 Intake Total 290 / 820 50 / 870 410 / 410 Balance 290 / 420 50 / 470 410 / 410 Weight last 48 hrs Weight 97.795 kg Weight 93.803 kg Physical Exam Narrative: General: No acute distress, AO x3, on 4lpm supplemental 02. HEENT: PERRLA, pupils bilaterally equal and reactive, pallors not present Chest: Normal vesicular breath sounds, no added sounds, equal good air entry bilaterally CVS: S1-S2 regular, no murmurs, no tachycardia, no gallops, no rubs Abdomen: Soft, nontender, no organomegaly, bowel sounds present Neuro: No focal deficits, no facial deformity, AO x3, power 5/5 in all limbs Extremities: no edema.clubbing or cyanosis Data 02/27/22 05:17 02/27/22 05:17 Micro: Microbiology 02/26/22 04:50 Blood Culture - Preliminary Blood NEGATIVE TO DATE 02/26/22 04:45 Blood Culture - Preliminary Blood NEGATIVE TO DATE A&P Assessment and plan (1) Pneumonia: (2) Respiratory failure with hypoxia and hypercapnia: (3) Heart failure: (4) CLIF (acute kidney injury): (5) Altered mental status: (6) Alcohol abuse with alcohol-induced disorder: (7) Fever: Plan 62 year old female with PMH of HTN was a direct admit from [facility], where she went with chief complaint of SOB as well cough with productive blood tinged sputum. Assessment : Acute on chronic hypoxic hypercapnic respiratory failure secondary to pneumonia/heart failure/pulmonary hypertension/influenza Altered mental status: Possibly secondary to withdrawal, currently alleged culprit is thought to be alcohol. Decompensated heart Failure Likely with preserved ejection fraction Pulmonary hypertension with an estimated pulmonary artery peak : systolic pressure of 48 mmHg. Pneumonia Fever HTN Morbid Obesity Mild CLIF: Resolved Plan : CTA chest: No P/E.It showed left infrahilar adenopathy rounded infiltrate within the superior segment of left lower lobe with air bronchogram surrounding groundglass infiltrates.Subtle infiltrates in the right middle lobe. 2D echo: Normal LV size and systolic function, LVEF:73%, no RWMA, technically difficult study with poor windows. Lower extremity doppler Vein : Negative for DVT EKG : Sinus rhythm no acute ST-T wave changes Blood Culture: NTD Repeat blood cultures: Sputum Gram Stain and culture : Many white blood cells no organisms seen. MRSA PCR: Negative Respiratory viral panel : Results appreciated Urine legionella antigen: Negative Urine bacterial antigen panel: Negative Currently she is empirically On Broad spectrum ABxs ( Vanco and Zosyn ) On Tamiflu Has received Lasix Monitor intake/Output Charting Monitor electrolytes. Monitor x-ray chest Duo nebs Was on propofol as well as fentanyl for sedation versed has been weaned off. Was transiently on levophed : Possibly secondary to propofol. S/p extubation: post extubation patient was extremely agitated,And violent, she was ripping her IV lines, was placed on four-point restraint, received 2 doses of Geodon, 10 mg Im, as well as 2 mg IV Ativan, has been on Precedex drip. Later it was informed by the family that she has history of alcohol abuse disorder. I also presume that she has underlying undiagnosed intermittent explosive disorder, currently she is on CIWA protocol, for possible atypical delayed alcohol withdrawal. DVT PPX: On SCDS and Lovenox Code Status :Full code. Plan for today: slowly improving, encourage ambulation. OOB to chair and attempts to walk, continue supporitve management, likely d/c in the upcoming 24 hrs if steady and continued improvement Attestations Medical Necessity Statement*: continued respiratory support, d/c tamiflu and abx and monitor over next 24 hrs, add cough suppressants, encourage ambulation Coding Level of Care Code Acute Linen Controller for Chg Fwd Diagnoses Pneumonia J18.9 Respiratory failure with hypoxia and hypercapnia J96.91; J96.92 Heart failure I50.9 CLIF (acute kidney injury) N17.9 Altered mental status R41.82 Alcohol abuse with alcohol-induced disorder F10.19 Fever R50.9
[2022-02-27] MEDS: enoxaparin 40 mg/0.4 mL Syringe SUBCUT (17:43)
[2022-02-28] VITALS (8 sets, daily range): BP systolic 162–186; BP diastolic 72–96; PULSE 68–90; RESP 15–18; TEMP 36.9–37; O2SAT 86–95
[2022-02-28] MEDS: ipratropium-albuterol 3 mL Neb INHALATION (02:48)
[2022-02-28] MEDS: acetylcysteine 200 mg/mL SDV 4 mL INHALATION (02:48)
[2022-02-28] MEDS: sodium chloride 3.5% neb 4 mL Neb INHALATION (02:49)
[2022-02-28] MEDS: acetaminophen 325 mg Tablet 650 MG PO (03:55)
[2022-02-28 05:50] LABS: Basophils # 0.1 10^3/uL (0.0-0.1); Eosinophils # 0.4 10^3/uL (0.0-0.8); Eosinophils % 5.7 %; Hemoglobin 15.2 g/dL (11.5-15.3); Lymphocytes # 1.4 10^3/uL (0.8-4.8); Lymphocytes % 20.6 %; Mean Corpuscular HGB Conc 29.8 g/dL (30.0-36.0); Mean Corpuscular Hemoglobin 28.4 pg (28.0-34.0); Mean Corpuscular Volume 95.1 fl (81-99); Mean Platelet Volume 9.3 fL (7.4-10.4); Monocytes # 1.1 10^3/uL (0.2-0.9); Monocytes % 15.7 %; Neutrophils # 3.72 10^3/uL (1.8-7.7); Neutrophils % 55.5 %; Nucleated Red Blood Cells % 0 %; Platelet Count 537 10^3/cmm (130-400); Red Blood Count 5.36 10^6/uL (4.1-5.3); Red Cell Distribution Width 13.7 % (12.1-15.1); White Blood Count 6.7 10^3/uL (4.0-10.0)
[2022-02-28 06:34] LABS: Anion Gap 10.2 (5-19); Blood Urea Nitrogen 17 mg/dL (8-23); Calcium 9.3 mg/dL (8.5-10.5); Carbon Dioxide 35 mmol/L (22-29); Chloride 101 mmol/L (98-107); Glomerular Filtration Rate 161.7 mL/min (90-130); Glucose 111 mg/dL (65-115); Osmolality Calculated 298 mOsm/kg (285-295); Potassium 3.2 mmol/L (3.5-5.1); Sodium 143 mmol/L (136-145)
--- NOTE | 2022-02-28 09:14 | PM.DCS ---
Discharge Providers Date of Admission: 02/20/22 18:18 Date of Discharge: February 28, 2022 Attending Provider at Admission: Joe Kaminski MD Attending Provider at Discharge: Amarilys Jones MD Primary Care Provider: Nathan Schultz Diagnoses at Discharge Discharge Diagnosis (1) Pneumonia: Status: Acute (2) Respiratory failure with hypoxia and hypercapnia: Status: Acute (3) Heart failure: Status: Acute (4) CLIF (acute kidney injury): Status: Acute (5) Altered mental status: Status: Acute (6) Alcohol abuse with alcohol-induced disorder: Status: Acute (7) Fever: Status: Acute (8) Influenzal pneumonia: Status: Acute Reason for Visit Reason for Visit: bilateral pnemonia Hospital Course Hospital Course Nadine Herrera is a 62 year old female with PMH of HTN was a direct admit from [facility], where she went with chief complaint of worsening SOB as well cough with productive blood tinged sputum, When she aarived there she was hypoxic as well as in respiratory distress, initially she was tried on non invasive mode of ventilation but given her progressive respiratory distress as well as worsening hypoxia she had to be intubated.CTA Chest done there ruled out P/E.It showed left infrahilar adenopathy rounded infiltrate within the superior segment of left lower lobe with air bronchogram surrounding groundglass infiltrates.Subtle infiltrates in the right middle lobe. She tested + for influenza A. She was treated for acute on chronic hypoxic hypercapnic respiratory failure secondary to pneumonia/heart failure/pulmonary hypertension/influenza. She received treatment with Tamiflu, iv abx zosyn and vancomycin and underwent diuresis with lasix for acute on chronic decompensated heart Failure with preserved ejection fraction. Post extubation course was marked by agitation likely 2/2 alcohol withdrawal which was managed with Ativan per CIWA protocol. She is significantly improved at the time of discharge, oxygen requirements are down to 4 L/min supplemental. She continues to have a cough, however counseled her extensively that this is expected to last over the next 3 to 4 weeks. Her exercise capacity has improved significantly. At the time of discharge she is afebrile and hemodynamically stable. Antibiotics and Tamiflu have been discontinued at discharge as she has completed an adequate course. Advair and Spiriva inhalers have been added at discharge. Physical Exam Narrative: General: No acute distress, AO x3 HEENT: PERRLA, pupils bilaterally equal and reactive, pallors not present Chest: Scattered wheezing to auscultation CVS: S1-S2 regular, no murmurs, n scattered wheezing on auscultation bilaterallyo tachycardia, no gallops, no rubs Abdomen: Soft, nontender, no organomegaly, bowel sounds present Neuro: No focal deficits, no facial deformity, AO x3, power 5/5 in all limbs Discharge Data Studies Completed and Pending Completed Studies During Hospitalization Category Date Time Status XR chest 1V portable [id number] Routine Exams 02/20/22 18:19 Completed XR chest 1V portable [id number] Routine Exams 02/23/22 05:00 Completed XR chest 1V portable [id number] Routine Exams 02/23/22 09:45 Completed XR chest 1V portable [id number] Stat Exams 02/20/22 20:03 Completed CV. echo complete* [id number] Routine Ultrasound 02/20/22 19:23 Completed US venous duplex lower extremity bilat [CV venous Ultrasound 02/20/22 19:23 [place] [id number]] Routine Pending at discharge Category Date Time Status BMP [Basic Metabolic Panel] AM LABS Lab 03/01/22 04:00 Ordered Blood Culture AM LABS Lab 02/26/22 04:50 Results CBC Auto Diff [Complete Blood Count w/Auto] AM LABS Lab 03/01/22 04:00 Ordered Radiology Impressions Chest X-Ray 02/23/22 09:45 IMPRESSION: Imaging findings of pulmonary edema with trace left pleural effusion pneumonia should be excluded clinically. Laboratory Results WBC 6.7 10^3/uL (4.0-10.0) 02/28/22 05:18 RBC 5.36 10^6/uL (4.1-5.3) H 02/28/22 05:18 Hgb 15.2 g/dL (11.5-15.3) 02/28/22 05:18 Hct 51.0 % (37.0-47.0) H 02/28/22 05:18 MCV 95.1 fl (81-99) 02/28/22 05:18 MCH 28.4 pg (28.0-34.0) 02/28/22 05:18 MCHC 29.8 g/dL (30.0-36.0) L 02/28/22 05:18 RDW 13.7 % (12.1-15.1) 02/28/22 05:18 Plt Count 537 10^3/cmm (130-400) H 02/28/22 05:18 MPV 9.3 fL (7.4-10.4) 02/28/22 05:18 Neut % (Auto) 55.5 % 02/28/22 05:18 Lymph % (Auto) 20.6 % 02/28/22 05:18 [place] % (Auto) 15.7 % 02/28/22 05:18 Eos % (Auto) 5.7 % 02/28/22 05:18 Baso % (Auto) 1.0 % 02/28/22 05:18 Neut # (Auto) 3.72 10^3/uL (1.8-7.7) 02/28/22 05:18 Lymph # (Auto) 1.4 10^3/uL (0.8-4.8) 02/28/22 05:18 [place] # (Auto) 1.1 10^3/uL (0.2-0.9) H 02/28/22 05:18 Eos # (Auto) 0.4 10^3/uL (0.0-0.8) 02/28/22 05:18 Baso # (Auto) 0.1 10^3/uL (0.0-0.1) 02/28/22 05:18 Nucleated RBC % (auto) 0 % 02/28/22 05:18 Nucleated RBCs # 0.0 /100WBC 02/28/22 05:18 PT 14.30 SECONDS (12.1-14.9) 02/21/22 04:41 INR 1.08 (0.8-1.2) 02/21/22 04:41 APTT 28.8 SECONDS (23.9-36.7) 02/21/22 04:41 Specimen Type Arterial 02/23/22 05:26 Sample Site Radial, right 02/23/22 05:26 ABG pH 7.42 (7.35-7.45) 02/23/22 05:26 ABG pCO2 42.3 mmHg (35-45) 02/23/22 05:26 ABG pO2 72.5 mmHg (80.0-100.0) L 02/23/22 05:26 ABG HCO3 27.6 mmol/L (22-26) H 02/23/22 05:26 ABG O2 Saturation 94.7 02/23/22 05:26 ABG Base Excess 2.7 mmol/L (-2.0-2.0) H 02/23/22 05:26 Magnus Test Pos 02/23/22 05:26 A-a O2 Gradient 20.8 mmHg (5-10) H 02/23/22 05:26 Hematocrit 51.9 % (37-47) H 02/23/22 05:26 Hgb O2 Saturation 93.2 % (95-100) L 02/23/22 05:26 Carboxyhemoglobin 1.1 %THgb (0.4-20.1) 02/23/22 05:26 Methemoglobin 0.5 % (0.4-1.5) 02/23/22 05:26 Total Hemoglobin 16.9 g/dL (12-16) H 02/23/22 05:26 Sodium 135.0 mmol/L (131-143) 02/23/22 05:26 Potassium 3.5 mmol/L (3.5-5.0) 02/23/22 05:26 Glucose 103.0 mg/dL (70-115) 02/23/22 05:26 Ionized Calcium 1.1 mmol/L (1.1-1.4) 02/23/22 05:26 O2 Delivery Device Vent 02/23/22 05:26 FiO2 40.0 % 02/23/22 05:26 Tidal Volume 0.45 02/23/22 05:26 PEEP 8.0 cmH20 02/23/22 05:26 Sleeve Separator ID Malik 02/23/22 05:26 Sodium 143 mmol/L (136-145) 02/28/22 05:18 Potassium 3.2 mmol/L (3.5-5.1) L 02/28/22 05:18 Chloride 101 mmol/L (98-107) 02/28/22 05:18 Carbon Dioxide 35 mmol/L (22-29) H 02/28/22 05:18 Anion Gap 10.2 (5-19) 02/28/22 05:18 BUN 17 mg/dL (8-23) 02/28/22 05:18 Creatinine 0.4 mg/dL (0.5-0.9) L 02/28/22 05:18 GFR Calculation 161.7 mL/min (90-130) H 02/28/22 05:18 Glucose 111 mg/dL (65-115) 02/28/22 05:18 POC Glucose 112 mg/dL (70-110) H 02/24/22 07:43 Calculated Osmolality 298 mOsm/kg (285-295) H 02/28/22 05:18 Lactic Acid 1.0 mmol/L (0.5-2.2) 02/21/22 04:41 Lactate 1.1 mmol/L (0.5-2.2) 02/20/22 19:13 Calcium 9.3 mg/dL (8.5-10.5) 02/28/22 05:18 Phosphorus 2.5 mg/dL (2.5-4.5) 02/21/22 04:41 Magnesium 3.3 mg/dL (1.7-2.3) H 02/23/22 16:57 Total Bilirubin 0.5 mg/dL (0.15-1.2) 02/23/22 03:11 AST 21 U/L (0-32) 02/23/22 03:11 ALT 15 U/L (0-33) 02/23/22 03:11 Alkaline Phosphatase 73 U/L (35-105) 02/23/22 03:11 NT-Pro-B Natriuret Pep 735 pg/mL (0-125) H 02/21/22 04:41 Total Protein 6.2 g/dL (6.6-8.7) L 02/23/22 03:11 Albumin 2.9 g/dL (3.5-5.2) L 02/23/22 03:11 Globulin 3.3 g/dL (1.3-4.6) 02/23/22 03:11 Procalcitonin 0.19 ng/mL (0-0.5) 02/21/22 04:41 TSH 3.59 uIU/mL (0.27-4.20) 02/21/22 04:41 Nasal Influ A H1 2008 PCR Not detected (NOT DETECT) 02/21/22 00:01 Vancomycin Trough 12.5 ug/mL (10-15) 02/22/22 07:45 Adenovirus (PCR) Not detected (NOT DETECT) 02/21/22 00:01 C. pneumoniae DNA (PCR) Not detected (NOT DETECT) 02/21/22 00:01 Coronavirus 229E (PCR) Not detected (NOT DETECT) 02/21/22 00:01 Human Metapneumovir PCR Not detected (NOT DETECT) 02/21/22 00:01 Influenza A (H1) PCR Not detected (NOT DETECT) 02/21/22 00:01 Influenza A (H3) PCR Detected (NOT DETECT) A 02/21/22 00:01 Influenza Type A (PCR) Detected (NOT DETECT) A 02/21/22 00:01 Influenza Type B (PCR) Not detected (NOT DETECT) 02/21/22 00:01 M. pneumoniae (PCR) Not detected (NOT DETECT) 02/21/22 00:01 Parainfluenza 1 (PCR) Not detected (NOT DETECT) 02/21/22 00:01 Parainfluenza 2 (PCR) Not detected (NOT DETECT) 02/21/22 00:01 Parainfluenza 3 (PCR) Not detected (NOT DETECT) 02/21/22 00:01 Parainfluenza 4 (PCR) Not detected (NOT DETECT) 02/21/22 00:01 RSV Type A (PCR) Not detected (NOT DETECT) 02/21/22 00:01 RSV Type B (PCR) Not detected (NOT DETECT) 02/21/22 00:01 Entero/Rhino (PCR) Not detected (NOT DETECT) 02/21/22 00:01 SARS-CoV-2 (PCR) Not detected (NOT DETECT) 02/21/22 00:01 Vitals Last Vital Signs Temp 98.4 F 02/28/22 07:37 Pulse 82 02/28/22 07:37 Resp 15 02/28/22 07:37 BP 163/76 02/28/22 07:37 Pulse Ox 93 02/28/22 07:37 O2 Del Method 02/28/22 07:37 O2 Flow Rate 2 02/28/22 02:00 FiO2 30 02/23/22 08:33 Discharge Plan Discharge Patient Disposition: Home Condition: Stable Prescriptions: New dextromethorphan-guaifenesin 10-100 mg/5 mL Syrup 5 ml PO Q4H PRN (Reason: Cough) Qty: 0 0RF fluticasone propion-salmeterol [Advair Diskus] 500-50 mcg/dose blister with device 1 inh inhalation BID 30 Days Qty: 60 0RF Spiriva with HandiHaler 18 mcg capsule, w/inhalation device 1 cap inhalation DAILY 30 Days Qty: 30 0RF Rx Instructions: puncture 1 cap using device; one dose = 2 inhalations Continued Zyrtec 10 mg tablet 10 mg PO DAILY betamethasone, augmented 0.05 % cream 1 applic TOPICAL DAILY PRN (Reason: unknown) Rx Instructions: apply to back metoprolol succinate 100 mg tablet extended release 24 hr 100 mg PO DAILY clobetasol 0.05 % cream 1 applic TOPICAL BID PRN (Reason: unknown) lisinopril 10 mg tablet 10 mg PO DAILY gabapentin 300 mg capsule See Rx Instructions .ROUTE .COMPLEX Rx Instructions: 300mg po daily for 7 days then 300mg po bid if no side effects increase to 300mg po qam, 300mg po at noon and 300mg po qpm hydroxyzine HCl 25 mg tablet 25 mg PO Q6H PRN (Reason: unknown) Flonase Allergy Relief 50 mcg/actuation spray,suspension 1 spray INTRANASAL DAILY PRN (Reason: Allergy Symptoms) Discharge Orders: Discharge Order (Routine); Ordered 02/28/22 Ordered By: Amarilys Jones Referrals: Nathan Schultz [Primary Care Provider] - 1 week (hospital discharge follow up) Discharge Diet: Usual diet Discharge Activity: Resume usual activity Patient Instructions: Opioid Safety Discharge Attestations Time Spent in Discharge Care*: greater than 30 min Quality Metrics Clinical Quality Measures [ No reported AMI, CVA or VTE this stay] Coding Level of Care Code Acute [facility] note Diagnoses Pneumonia J18.9 Respiratory failure with hypoxia and hypercapnia J96.91; J96.92 Heart failure I50.9 CLIF (acute kidney injury) N17.9 Altered mental status R41.82 Alcohol abuse with alcohol-induced disorder F10.19 Fever R50.9 Influenzal pneumonia J11.00
[2022-02-28] MEDS: multivitamin therapeutic Tablet 1 TAB PO (09:54)
[2022-02-28] MEDS: metoprolol succinate ER (24 HR) 100 mg Tablet PO (09:54)
[2022-02-28] MEDS: nicotine 21 mg Patch 1 PATCH TRANSDERMA (09:55)
[2022-02-28] MEDS: lisinopril 10 mg Tablet PO (09:55)
== END 2022-02-28 13:15 | disposition home or self-care (01) | DRG 208 ==
LOC: ICU 21:24 → CSU 02-21 06:32 → MEDSURG 02-26 10:36
PROVIDERS: Admitting Provider Internal Medicine; PCP Family Medicine; Referring Provider Emergency Medicine; Visit Provider Student in an Organized Health Care Education/Training Program
DX: J10.00 Influenza due to other identified influenza virus with unspecified type of pneumonia (principal); I50.33 Acute on chronic diastolic (congestive) heart failure; J96.22 Acute and chronic respiratory failure with hypercapnia; J96.21 Acute and chronic respiratory failure with hypoxia; N17.9 Acute kidney failure, unspecified; F10.139 Alcohol abuse with withdrawal, unspecified; I11.0 Hypertensive heart disease with heart failure; I27.20 Pulmonary hypertension, unspecified; E66.01 Morbid (severe) obesity due to excess calories; Z68.39 Body mass index [BMI] 39.0-39.9, adult; F63.81 Intermittent explosive disorder
CPT/HCPCS: 36415; 36416; 36600; 71045; 80048; 80051; 80053; 80202; 82330; 82803; 82805; 82962; 83605; 83735; 83880; 84100; 84145; 84443; 85025; 85610; 85730; 86403; 87040; 87070; 87205; 87449; 87486; 87581; 87633; 87641; 92523; 92610; 93005; 93306; 93970; 94002; 94003; 94640; 94760; 94799; 96372; 97110; 97162; 97530; A4570; J1200; J1630; J1650; J1940; J2060; J2250; J2543; J2704; J3010; J3370; J3475; J3480; J3486; J7060; J7608; J7613; J7644; Q9956

== ENCOUNTER 2023-05-12 11:21 | Inpatient (IN) | payer MEDICARE, MEDICAID, SELFPAY ==
[2023-05-12] VITALS (17 sets, daily range): BP systolic 113–176; BP diastolic 71–106; PULSE 66–100; RESP 19–27; TEMP 36.7–37.1; O2SAT 90–95; BMI 41.5
--- NOTE | 2023-05-12 11:39 | XRR_ITS ---
PROCEDURE INFORMATION: Exam: XR Chest Exam date and time: 05/12/2023 11:56 AM Age: 63 years old Clinical indication: Dyspnea; Additional info: Dyspnea/cough TECHNIQUE: Imaging protocol: Radiologic exam of the chest. Views: 1 view. COMPARISON: CR XR chest 1V portable [id number] 02/23/2022 10:05 AM FINDINGS: Lungs: Platelike atelectasis/scar medial right lung. Bibasilar atelectasis/infiltrates. Pleural spaces: No pleural effusion. No pneumothorax. Heart/Mediastinum: Moderate to severe cardiomegaly. Bones/joints: No acute bony abnormality. XR/XR chest 1V portable [id number] IMPRESSION: Bibasilar atelectasis/infiltrates.
--- NOTE | 2023-05-12 11:39 | ECG_ITS ---
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 Measurements Intervals [place] Rate: 70 P: 58 NM: 135 QRS: 70 QRSD: 94 T: 56 QT: 369 QTc: 400 Interpretive Statements SINUS RHYTHM WITH OCCASIONAL VENTRICULAR PREMATURE COMPLEXES Compared to ECG 02/21/2022 01:38:57 Ventricular premature complex(es) now present T-wave abnormality no longer present Possible ischemia no longer present Electronically Signed On 05-12-2023 15:51:22 CDT by Scott Cruz M.D. [id number]
--- NOTE | 2023-05-12 11:45 | W.ED.SOB ---
HPI - SOB/Dyspnea General: Chief Complaint: Shortness of Breath/Dyspnea Stated Complaint: SOB Time Seen by Provider: 05/12/23 11:24 Source: patient Mode of arrival: EMS History of Present Illness: HPI Narrative: 63-year-old female presents to the emergency room with complaints of shortness of breath. She also complaining of some back spasm. She was started on home oxygen 2 weeks ago she is usually on 2 to 3 L/min is now requiring 4 today. When she initially arrived she was on 10 L by nonrebreather this was changed to nasal cannula 4 and she maintained sats. She denies chest pain or biggest complaint to me with swelling in her legs. She says they have tried different medicines at home and it does not seem to be improving. Reviewing her chart she has had history of COPD congestive heart failure has had episodes of acute kidney injury in the past as well as history of alcohol abuse. No chest pain but patient does report productive cough white sputum. MD elicited complaint: shortness of breath Pertinent past history: COPD and congestive heart failure Exacerbating factors: exertion and coughing Relieving factors: oxygen and rest Known history of: COPD and congestive heart failure Associated symptoms: Reports chest congestion and cough; Deny abdominal pain, chest pain, diaphoresis, dizziness, extremity pain, fever(s), hemoptysis, lightheadedness, myalgias, nausea, orthopnea, palpitations, paresthesias, polydipsia, polyuria, rash, sense of impending doom, syncope or vomiting Review of Systems Const: Reports: fatigue and malaise; Denies: fever(s), chills or diaphoresis Card: Reports: edema, swelling of feet/ankles and dyspnea on exertion; Denies: chest pain, palpitations, lightheadedness, syncope or orthopnea Resp: Reports: dyspnea, productive cough and chest congestion; Denies: hemoptysis GI: Denies: abdominal pain, nausea or vomiting : Denies: dysuria, urinary frequency or urinary urgency Musc: Denies: extremity pain Skin/Breast: Denies: rash Neuro: Denies: dizziness Endo: Denies: polyuria or polydipsia PFS ED PFSH: Medical History Alcohol abuse with alcohol-induced disorder Heart failure Respiratory failure with hypoxia and hypercapnia Social History Smoking and tobacco/nicotine status: current every day tobacco/nicotine user cigarettes Years cigarettes smoked: 50 Number of cigarettes per day: >20 Physical Exam Const: GENERAL APPEARANCE: cooperative ORIENTATION/CONSCIOUSNESS: Yes awake, Yes oriented to person, Yes oriented to place and Yes oriented to time HENMT: COMMON NORMALS: normocephalic, atraumatic and hearing grossly normal bilaterally HEAD & SCALP: normocephalic and atraumatic Resp: COMMON NORMALS: No retractions EFFORT & INSPECTION: Yes tachypneic AUSCULTATION: crackles and wheezes Cardio: COMMON NORMALS: regular rate, regular rhythm and No murmurs present (Cardio) RATE: regular rate RHYTHM: regular rhythm GI: COMMON NORMALS: Soft to palpation and No hepatosplenomegaly present AUSCULTATION: Yes normoactive bowel sounds PALPATION: Yes Soft to palpation, No Tenderness to palpation present (GI), No Guarding due to palpation present (GI) and Yes No hepatosplenomegaly present Extremity: COMMON NORMALS: normal to inspection, capillary refill normal, no clubbing, cyanosis or edema, no calf tenderness and no pedal edema Neuro: SENSORIUM/ORIENTATION: Yes oriented to person, Yes oriented to place and Yes oriented to time Skin: COMMON NORMALS: no rashes or lesions noted GENERAL SKIN EXAM: no rashes or lesions noted Course Vital Signs: Vital signs: Vital Signs Temperature 98.3 F 05/12/23 11:23 Pulse Rate 69 05/12/23 12:54 Respiratory Rate 27 H 05/12/23 12:50 Blood Pressure 148/78 05/12/23 12:00 Pulse Oximetry 92 05/12/23 12:50 Oxygen Delivery Me thod BiPAP 05/12/23 12:50 Oxygen Flow Rate 5 05/12/23 12:00 Fraction of Inspir ed Oxygen 40 05/12/23 12:50 MDM - SOB/Dyspnea Medical Decision Making Mild congestive heart failure hypercapnic respiratory failure and pneumonia. Started on IV antibiotics patient improved on BiPAP. Discussed with hospitalist orders written Differential Diagnosis Likely acute exacerbation of chronic obstructive airways disease, congestive heart failure and community acquired pneumonia Medical Records I reviewed the patient's medical records. Lab Data I reviewed the patient's lab results. 05/12/23 11:55 05/12/23 12:24 Labs/Radiology: Radiology Impressions Chest X-Ray 05/12/23 11:39 IMPRESSION: Bibasilar atelectasis/infiltrates. Laboratory Results WBC 9.70 10^3/uL (3.29-11.43) 05/12/23 11:55 RBC 6.74 10^6/uL (3.85-5.65) H 05/12/23 11:55 Hgb 15.80 g/dL (11.27-16.99) 05/12/23 11:55 Hct 56.0 % (36-47) H 05/12/23 11:55 MCV 83.1 fl (85-98) L 05/12/23 11:55 MCH 23.4 pg (27-33) L 05/12/23 11:55 MCHC 28.2 g/dL (30-55) L 05/12/23 11:55 RDW 18.8 % (12.1-15.1) H 05/12/23 11:55 Plt Count 334 10^3/cmm (157-399) 05/12/23 11:55 MPV 9.1 fL (7.4-10.4) 05/12/23 11:55 Neut % (Auto) 72.7 % 05/12/23 11:55 Lymph % (Auto) 14.8 % 05/12/23 11:55 [place] % (Auto) 10.5 % 05/12/23 11:55 Eos % (Auto) 1.3 % 05/12/23 11:55 Baso % (Auto) 0.5 % 05/12/23 11:55 Neut # (Auto) 7.04 10^3/uL (1.8-7.7) 05/12/23 11:55 Lymph # (Auto) 1.4 10^3/uL (0.8-4.8) 05/12/23 11:55 [place] # (Auto) 1.0 10^3/uL (0.2-0.9) H 05/12/23 11:55 Eos # (Auto) 0.1 10^3/uL (0.0-0.8) 05/12/23 11:55 Baso # (Auto) 0.1 10^3/uL (0.0-0.1) 05/12/23 11:55 Nucleated RBC % (auto) 0 % 05/12/23 11:55 Nucleated RBCs # 0.0 /100WBC 05/12/23 11:55 Specimen Type Arterial 05/12/23 12:05 Sample Site Radial, right 05/12/23 12:05 ABG pH 7.38 (7.35-7.45) 05/12/23 12:05 ABG pCO2 71.7 mmHg (35-45) H* 05/12/23 12:05 ABG pO2 63.0 mmHg (80.0-100.0) L 05/12/23 12:05 ABG PO2/FiO2 Ratio 0 05/12/23 12:05 ABG HCO3 42.7 mmol/L (22-26) H 05/12/23 12:05 ABG O2 Saturation 93.0 05/12/23 12:05 ABG Base Excess 13.5 mmol/L (-2.0-2.0) H 05/12/23 12:05 Magnus Test Pos 05/12/23 12:05 A-a O2 Gradient 14.3 mmHg (5-10) H 05/12/23 12:05 Hematocrit 49.0 % (37-47) H 05/12/23 12:05 Hgb O2 Saturation 87.9 % (95-100) L 05/12/23 12:05 Carboxyhemoglobin 5.1 %THgb (0.4-20.1) 05/12/23 12:05 Methemoglobin 0.4 % (0.4-1.5) 05/12/23 12:05 Total Hemoglobin 16.0 g/dL (12-16) 05/12/23 12:05 Sodium 139.0 mmol/L (131-143) 05/12/23 12:05 Potassium 4.6 mmol/L (3.5-5.0) 05/12/23 12:05 Glucose 99.0 mg/dL (70-115) 05/12/23 12:05 Ionized Calcium 1.2 mmol/L (1.1-1.4) 05/12/23 12:05 O2 Delivery Device Nc 05/12/23 12:05 O2 Liters/Min 4.0 % 05/12/23 12:05 FiO2 36.0 % 05/12/23 12:05 [place] Washing System Operator ID Amh 05/12/23 12:05 Sodium 139 mmol/L (136-145) 05/12/23 12:24 Potassium 4.9 mmol/L (3.5-5.1) 05/12/23 12:24 Chloride 94 mmol/L (98-107) L 05/12/23 12:24 Carbon Dioxide 36 mmol/L (22-29) H 05/12/23 12:24 Anion Gap 13.9 (5-19) 05/12/23 12:24 BUN 13 mg/dL (8-23) 05/12/23 12:24 Creatinine 0.5 mg/dL (0.5-0.9) 05/12/23 12:24 GFR Calculation 124.6 mL/min (90-130) 05/12/23 12:24 Glucose 91 mg/dL (65-115) 05/12/23 12:24 Calculated Osmolality 288 mOsm/kg (285-295) 05/12/23 12:24 Lactic Acid 0.7 mmol/L (0.5-2.2) 05/12/23 12:24 Calcium 9.1 mg/dL (8.5-10.5) 05/12/23 12:24 Total Bilirubin 0.3 mg/dL (0.15-1.2) 05/12/23 12:24 AST 10 U/L (0-32) 05/12/23 12:24 ALT 8 U/L (0-33) 05/12/23 12:24 Alkaline Phosphatase 93 U/L (35-105) 05/12/23 12:24 Troponin T Baseline 13 ng/L (0-10) H 05/12/23 12:24 NT-Pro-B Natriuret Pep 1558 pg/mL (0-125) H 05/12/23 12:24 Total Protein 6.3 g/dL (6.6-8.7) L 05/12/23 12:24 Albumin 3.6 g/dL (3.5-5.2) 05/12/23 12:24 Globulin 2.7 g/dL (1.3-4.6) 05/12/23 12:24 Urine Color Light yellow (Yellow) 05/12/23 12:21 Urine Appearance Clear (CLEAR) 05/12/23 12:21 Urine pH 8 (5-7) H 05/12/23 12:21 Ur Specific [place] 1.015 (1.005-1.030) 05/12/23 12:21 Urine Protein Neg (Negative) 05/12/23 12:21 Urine Glucose (UA) Norm (Normal) 05/12/23 12:21 Urine Ketones Negative (Negative) 05/12/23 12:21 Urine Blood Neg (Negative) 05/12/23 12:21 Urine Nitrate Negative (Negative) 05/12/23 12:21 Urine Bilirubin Neg (Negative) 05/12/23 12:21 Prot Sulfosalicylic Acd Negative (Negative) 05/12/23 12:21 Urine Urobilinogen Neg mg/dL (Negative) 05/12/23 12:21 Ur Leukocyte Esterase Negative (Negative) 05/12/23 12:21 Ethyl Alcohol < 10 mg/dL (0-10) 05/12/23 12:24 Influenza Type A Ag negative (Negative) 05/12/23 12:21 Influenza Type B Ag negative (Negative) 05/12/23 12:21 All radiology interpretation(s) finalized by discharge Discharge Plan Discharge Patient Disposition: Admitted As Inpatient Clinical Impression: Heart failure, Pneumonia, Respiratory failure with hypoxia and hypercapnia Condition: Stable Coding Level of Care Code ED Supervisor Cold Rolling for Maria E Cortez
[2023-05-12 12:06] LABS: Basophils # 0.1 10^3/uL (0.0-0.1); Basophils % 0.5 %; Eosinophils # 0.1 10^3/uL (0.0-0.8); Eosinophils % 1.3 %; Lymphocytes # 1.4 10^3/uL (0.8-4.8); Lymphocytes % 14.8 %; Mean Corpuscular HGB Conc 28.2 g/dL (30-55); Mean Corpuscular Hemoglobin 23.4 pg (27-33); Mean Corpuscular Volume 83.1 fl (85-98); Mean Platelet Volume 9.1 fL (7.4-10.4); Monocytes % 10.5 %; Neutrophils # 7.04 10^3/uL (1.8-7.7); Neutrophils % 72.7 %; Nucleated Red Blood Cells % 0 %; Platelet Count 334 10^3/cmm (157-399); Red Blood Count 6.74 10^6/uL (3.85-5.65); Red Cell Distribution Width 18.8 % (12.1-15.1)
--- NOTE | 2023-05-12 12:15 | PC.PHAR ---
pt states she takes care of her own medications-pt states the dr laboy her lasix 40mg daily filled on 04/04/23 30d/s states changed to bumetanide 1mg qam filled 05/03/23 30d/s-pt states she uses her breztri prn
[2023-05-12 12:18] LABS: ABG PH Result 7.38 (7.35-7.45); Alveolar-Arterial Oxygen Gradi 14.3 mmHg (5-10); Base Excess ABG 13.5 mmol/L (-2.0-2.0); Blood Gas Allen Test Pos; Blood Gas Operator Identificat AMH; Blood Gas Sample Site Radial, right; Blood Gas Sample Type Arterial; Carboxyhemoglobin 5.1 %THgb (0.4-20.1); HCO3 ABG 42.7 mmol/L (22-26); HGB O2 Sat 87.9 % (95-100); Ionized Calcium Level - ABG 1.2 mmol/L (1.1-1.4); Methemoglobin 0.4 % (0.4-1.5); Oxygen Device NC; PO2 FiO2 Ratio Arterial Blood 0; Potassium Level - ABG 4.6 mmol/L (3.5-5.0)
[2023-05-12 12:19] LABS: ABG PCO2 71.7 mmHg (35-45)
[2023-05-12 12:29] LABS: Add Urine Microscopic? NO; Charge for UA Resulting for Rev
[2023-05-12 12:42] LABS: Bilirubin Urine Neg (Negative); Blood Urine Neg (Negative); Glucose Urine UA Norm (Normal); Ketones Urine Negative (Negative); Leukocyte Esterase Urine Negative (Negative); Nitrate Urine Negative (Negative); Protein Urine Neg (Negative); Specific Gravity, Urine 1.015 (1.005-1.030); Sulfosalicylic Acid Urine Negative (Negative); Urine Appearance Clear (CLEAR); Urine Color Light yellow (Yellow); Urobilinogen Urine Neg (Negative); pH Urine 8 (5-7)
[2023-05-12 12:48] LABS: Influenza A by IFA negative (Negative); Influenza B by IFA negative (Negative)
[2023-05-12] MEDS: levofloxacin-dextrose 5 % 750 MG/150 ML PREMIX 100 MG IV (12:50)
[2023-05-12] MEDS: ipratropium-albuterol 3 mL Neb INHALATION ×2 (12:50→20:43)
[2023-05-12] MEDS: dexamethasone 10 mg/mL INJ IM (12:59)
[2023-05-12] MEDS: LORazepam 2 mg/mL INJ 10 mL MDV 1 MG IV (12:59)
[2023-05-12 13:02] LABS: Lactic Sepsis W/Reflex 0.7 mmol/L (0.5-2.2)
[2023-05-12 13:04] LABS: Troponin(5th) Baseline 13 ng/L (0-10)
--- NOTE | 2023-05-12 13:09 | PC.NURSE ---
PT REFUSING TO LEAVE ANY MONITORING ON OTHER THAN BP CUFF.
[2023-05-12 13:10] LABS: Alanine Aminotransferase 8 U/L (0-33); Albumin Level 3.6 g/dL (3.5-5.2); Alcohol Level < 10 mg/dL (0-10); Alkaline Phosphatase 93 U/L (35-105); Anion Gap 13.9 (5-19); Aspartate Amino Transferase 10 U/L (0-32); Blood Urea Nitrogen 13 mg/dL (8-23); Calcium 9.1 mg/dL (8.5-10.5); Carbon Dioxide 36 mmol/L (22-29); Chloride 94 mmol/L (98-107); Creatinine Clr Calc Pharmacy 129.5292; Globulin 2.7 g/dL (1.3-4.6); Glomerular Filtration Rate 124.6 mL/min (90-130); Glucose 91 mg/dL (65-115); Osmolality Calculated 288 mOsm/kg (285-295); Potassium 4.9 mmol/L (3.5-5.1); Sodium 139 mmol/L (136-145); Total Bilirubin 0.3 mg/dL (0.15-1.2); Total Protein 6.3 g/dL (6.6-8.7)
[2023-05-12 13:13] LABS: NT Pro B Type Natriuretic Pept 1558 pg/mL (0-125)
[2023-05-12] MEDS: orphenadrine 30 mg/mL Inj 2 mL 60 MG IVP (13:53)
--- NOTE | 2023-05-12 13:59 | ECG_ITS ---
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 Measurements Intervals [place] Rate: 79 P: 61 MA: 151 QRS: 65 QRSD: 95 T: 60 QT: 365 QTc: 419 Interpretive Statements SINUS RHYTHM WITH OCCASIONAL VENTRICULAR PREMATURE COMPLEXES RIGHT ATRIAL ENLARGEMENT [0.3mV P-WAVE] POSSIBLE LEFT ATRIAL ENLARGEMENT [-0.1mV P-WAVE IN V1/V2] Compared to ECG 05/12/2023 11:51:53 Atrial abnormality now present Electronically Signed On 05-12-2023 15:57:47 CDT by Scott Cruz M.D. [id number]
[2023-05-12 14:16] LABS: Adenovirus Not Detected (NOT DETECT); Chlamydia Pneumoniae Not Detected (NOT DETECT); Coronavirus 229E,HKU1,NL63,OC4 Not Detected (NOT DETECT); Human Metapneumovirus Not Detected (NOT DETECT); Human Rhinovirus/Enterovirus Not Detected (NOT DETECT); Influenza A Not Detected (NOT DETECT); Influenza A H1 Not Detected (NOT DETECT); Influenza A H1-2009 Not Detected (NOT DETECT); Influenza A H3 Not Detected (NOT DETECT); Influenza B Not Detected (NOT DETECT); Mycoplasma Pneumoniae Not Detected (NOT DETECT); Parainfluenza Virus Type 1 Not Detected (NOT DETECT); Parainfluenza Virus Type 2 Not Detected (NOT DETECT); Parainfluenza Virus Type 3 Not Detected (NOT DETECT); Parainfluenza Virus Type 4 Not Detected (NOT DETECT); Respiratory Syncytial Virus A Not Detected (NOT DETECT); Respiratory Syncytial Virus B Not Detected (NOT DETECT); SARS-COV-2 Not Detected (NOT DETECT)
[2023-05-12 14:53] LABS: Troponin 5 2HR 14.28 ng/L (0-10); Troponin 5 2HR Delta 1.28 ABS# (0-10)
[2023-05-12 15:23] LABS: ABG PH Result 7.37 (7.35-7.45); Arterial Blood Gas Hematocrit 50.4 % (37-47); Base Excess ABG 11.3 mmol/L (-2.0-2.0); Blood Gas Allen Test Pos; Blood Gas Operator Identificat MONRO; Blood Gas Sample Site Radial, right; Blood Gas Sample Type Arterial; HCO3 ABG 40.5 mmol/L (22-26); Oxygen Device BIPAP; PO2 ABG 71.9 mmHg (80.0-100.0); PO2 FiO2 Ratio Arterial Blood 0
[2023-05-12 15:24] LABS: ABG PCO2 70.7 mmHg (35-45)
--- NOTE | 2023-05-12 16:26 | PM.HP ---
Providers/Chief Complaint Admitting Physician: Amarilys Jones MD Primary Care Provider: Nathan Schultz Chief Complaint: SOB History of Present Illness Nadine Herrera is a 63 year old female with PMH of HTN, COPD presented to the hospital today with chief complaints of shortness of breath and back pain. She reported that she was recently started on home oxygen 2 weeks ago, however per review of past notes it appears patient had been admitted in February 2022 with similar complaints and was discharged at 4 L/min supplemental O2. She denies any fever or chills. Reports a cough with clear expectoration. Denies any chest pain. She presented to the ER with above complaints and was found to have evidence of hypoxic hypercapnic respiratory failure which necessitated initiation of BiPAP upon presentation. Review of Systems General: Reports: 10 or more systems reviewed and unremarkable except in HPI and below Const: Denies: fever(s), chills or body aches Eyes: Denies: change in vision, blurry vision or photophobia ENMT: Reports: hoarseness; Denies: throat pain, enlarged tonsils, odynophagia or nasal congestion Card: Denies: chest pain, palpitations, irregular heart rhythm, edema, swelling of feet/ankles, lightheadedness, pre-syncope, dyspnea on exertion or orthopnea Resp: Denies: dyspnea, productive cough, non-productive cough, wheezing, stridor, pain on inspiration, change in phlegm color, hemoptysis or chest congestion GI: Denies: abdominal pain, nausea, vomiting, hematemesis, coffee ground emesis, dysphagia, heartburn, diarrhea, constipation, GI cramping, change in stool character, hematochezia or melena : Denies: flank pain, difficulty voiding, dysuria, urinary frequency, urinary urgency, urinary hesitancy or hematuria Musc: Denies: neck pain, back pain, extremity pain, joint swelling, joint warmth or deformity Neuro: Denies: headache(s), numbness in extremities, weakness in extremities, sensory changes, difficulty walking, frequent falls, dizziness, vertigo, behavioral changes, Slurred speech present or seizure-like activity Psych: Denies: anxiety, depression, suicidal ideation or homicidal ideation Endo: Denies: polyuria, polydipsia, tired all the time, cold intolerance or hot flashes Gabriel/Lymph: Denies: easy bruising or easy bleeding Medications/Allergies Home Medications Medication Instructions Recorded Confirmed Last Taken Type cetirizine 10 mg tablet (Zyrtec) 10 mg PO QAM 02/21/22 05/12/23 05/12/23 History fluticasone propionate 50 1 spray intranasal DAILY PRN 02/21/22 05/12/23 Unknown History mcg/actuation nasal Allergy Symptoms spray,suspension (Flonase Allergy Relief) lisinopril 10 mg tablet 10 mg PO QAM 02/21/22 05/12/23 05/12/23 History metoprolol succinate 100 mg 100 mg PO QAM 02/21/22 05/12/23 05/12/23 History tablet,extended release 24 hr acetaminophen 650 mg 650 - 1,300 mg PO Q6H PRN Pain 05/12/23 05/12/23 Unknown History tablet,extended release budesonide 160 mcg-glycopyr 9 2 inh inhalation BID PRN unknown 05/12/23 05/12/23 Unknown History mcg-formot 4.8 mcg/actuation HFA inhaler (Breztri Aerosphere) bumetanide 1 mg tablet 1 mg PO QAM 05/12/23 05/12/23 05/12/23 History Allergies Allergy/AdvReac Type Severity Reaction Status Date / Time strawberry Allergy Unknown Verified 02/20/22 20:51 sea salt Allergy Unknown Uncoded 05/12/23 12:12 PFSH Acute PFSH: Medical History Alcohol abuse with alcohol-induced disorder Heart failure Respiratory failure with hypoxia and hypercapnia Social History Smoking and tobacco/nicotine status: current every day tobacco/nicotine user cigarettes Years cigarettes smoked: 50 Vitals/I&O/Wt Last Vital Signs Temp 98.3 F 05/12/23 11:23 Pulse 69 05/12/23 15:15 Resp 27 H 05/12/23 12:50 BP 157/87 05/12/23 14:45 Pulse Ox 93 05/12/23 15:15 O2 Del Method BiPAP 05/12/23 14:45 O2 Flow Rate 5 05/12/23 12:00 FiO2 40 05/12/23 15:15 Weight last 48 hrs Weight 102.965 kg Physical Exam Narrative: General: No acute distress, AO x3 HEENT: PERRLA, pupils bilaterally equal and reactive, pallors not present Chest: Normal vesicular breath sounds, no added sounds, equal good air entry bilaterally CVS: S1-S2 regular, no murmurs, no tachycardia, no gallops, no rubs Abdomen: Soft, nontender, no organomegaly, bowel sounds present Neuro: No focal deficits, no facial deformity, AO x3, power 5/5 in all limbs Data 05/12/23 11:55 05/12/23 12:24 Other Labs: Radiology Impressions Chest X-Ray 05/12/23 11:39 IMPRESSION: Bibasilar atelectasis/infiltrates. Laboratory Results WBC 9.70 10^3/uL (3.29-11.43) 05/12/23 11:55 RBC 6.74 10^6/uL (3.85-5.65) H 05/12/23 11:55 Hgb 15.80 g/dL (11.27-16.99) 05/12/23 11:55 Hct 56.0 % (36-47) H 05/12/23 11:55 MCV 83.1 fl (85-98) L 05/12/23 11:55 MCH 23.4 pg (27-33) L 05/12/23 11:55 MCHC 28.2 g/dL (30-55) L 05/12/23 11:55 RDW 18.8 % (12.1-15.1) H 05/12/23 11:55 Plt Count 334 10^3/cmm (157-399) 05/12/23 11:55 MPV 9.1 fL (7.4-10.4) 05/12/23 11:55 Neut % (Auto) 72.7 % 05/12/23 11:55 Lymph % (Auto) 14.8 % 05/12/23 11:55 Bent % (Auto) 10.5 % 05/12/23 11:55 Eos % (Auto) 1.3 % 05/12/23 11:55 Baso % (Auto) 0.5 % 05/12/23 11:55 Neut # (Auto) 7.04 10^3/uL (1.8-7.7) 05/12/23 11:55 Lymph # (Auto) 1.4 10^3/uL (0.8-4.8) 05/12/23 11:55 Bent # (Auto) 1.0 10^3/uL (0.2-0.9) H 05/12/23 11:55 Eos # (Auto) 0.1 10^3/uL (0.0-0.8) 05/12/23 11:55 Baso # (Auto) 0.1 10^3/uL (0.0-0.1) 05/12/23 11:55 Nucleated RBC % (auto) 0 % 05/12/23 11:55 Nucleated RBCs # 0.0 /100WBC 05/12/23 11:55 Specimen Type Arterial 05/12/23 15:10 Sample Site Radial, right 05/12/23 15:10 ABG pH 7.37 (7.35-7.45) 05/12/23 15:10 ABG pCO2 70.7 mmHg (35-45) H* 05/12/23 15:10 ABG pO2 71.9 mmHg (80.0-100.0) L 05/12/23 15:10 ABG PO2/FiO2 Ratio 0 05/12/23 15:10 ABG HCO3 40.5 mmol/L (22-26) H 05/12/23 15:10 ABG O2 Saturation 93.0 05/12/23 12:05 ABG Base Excess 11.3 mmol/L (-2.0-2.0) H 05/12/23 15:10 Magnus Test Pos 05/12/23 15:10 A-a O2 Gradient 14.3 mmHg (5-10) H 05/12/23 12:05 Hematocrit 50.4 % (37-47) H 05/12/23 15:10 Hgb O2 Saturation 87.9 % (95-100) L 05/12/23 12:05 Carboxyhemoglobin 5.1 %THgb (0.4-20.1) 05/12/23 12:05 Methemoglobin 0.4 % (0.4-1.5) 05/12/23 12:05 Total Hemoglobin 16.0 g/dL (12-16) 05/12/23 12:05 Sodium 139.0 mmol/L (131-143) 05/12/23 12:05 Potassium 4.6 mmol/L (3.5-5.0) 05/12/23 12:05 Glucose 99.0 mg/dL (70-115) 05/12/23 12:05 Ionized Calcium 1.2 mmol/L (1.1-1.4) 05/12/23 12:05 O2 Delivery Device Bipap 05/12/23 15:10 O2 Liters/Min 4.0 % 05/12/23 12:05 FiO2 40.0 % 05/12/23 15:10 Reel Winder ID Monro 05/12/23 15:10 Sodium 139 mmol/L (136-145) 05/12/23 12:24 Potassium 4.9 mmol/L (3.5-5.1) 05/12/23 12:24 Chloride 94 mmol/L (98-107) L 05/12/23 12:24 Carbon Dioxide 36 mmol/L (22-29) H 05/12/23 12:24 Anion Gap 13.9 (5-19) 05/12/23 12:24 BUN 13 mg/dL (8-23) 05/12/23 12:24 Creatinine 0.5 mg/dL (0.5-0.9) 05/12/23 12:24 GFR Calculation 124.6 mL/min (90-130) 05/12/23 12:24 Glucose 91 mg/dL (65-115) 05/12/23 12:24 Calculated Osmolality 288 mOsm/kg (285-295) 05/12/23 12:24 Lactic Acid 0.7 mmol/L (0.5-2.2) 05/12/23 12:24 Calcium 9.1 mg/dL (8.5-10.5) 05/12/23 12:24 Total Bilirubin 0.3 mg/dL (0.15-1.2) 05/12/23 12:24 AST 10 U/L (0-32) 05/12/23 12:24 ALT 8 U/L (0-33) 05/12/23 12:24 Alkaline Phosphatase 93 U/L (35-105) 05/12/23 12:24 Troponin T Baseline 13 ng/L (0-10) H 05/12/23 12:24 Troponin T 120 Minute 14.28 ng/L (0-10) H 05/12/23 14:29 Delta Troponin T 1.28 ABS# (0-10) 05/12/23 14:29 NT-Pro-B Natriuret Pep 1558 pg/mL (0-125) H 05/12/23 12:24 Total Protein 6.3 g/dL (6.6-8.7) L 05/12/23 12:24 Albumin 3.6 g/dL (3.5-5.2) 05/12/23 12:24 Globulin 2.7 g/dL (1.3-4.6) 05/12/23 12:24 Urine Color Light yellow (Yellow) 05/12/23 12:21 Urine Appearance Clear (CLEAR) 05/12/23 12:21 Urine pH 8 (5-7) H 05/12/23 12:21 Ur Specific [place] 1.015 (1.005-1.030) 05/12/23 12:21 Urine Protein Neg (Negative) 05/12/23 12:21 Urine Glucose (UA) Norm (Normal) 05/12/23 12:21 Urine Ketones Negative (Negative) 05/12/23 12:21 Urine Blood Neg (Negative) 05/12/23 12:21 Urine Nitrate Negative (Negative) 05/12/23 12:21 Urine Bilirubin Neg (Negative) 05/12/23 12:21 Prot Sulfosalicylic Acd Negative (Negative) 05/12/23 12:21 Urine Urobilinogen Neg mg/dL (Negative) 05/12/23 12:21 Ur Leukocyte Esterase Negative (Negative) 05/12/23 12:21 Ethyl Alcohol < 10 mg/dL (0-10) 05/12/23 12:24 Coronavirus 229E (PCR) Not detected (NOT DETECT) 05/12/23 12:21 Influenza Type A Ag negative (Negative) 05/12/23 12:21 Influenza Type B Ag negative (Negative) 05/12/23 12:21 SARS-CoV-2 (PCR) Not detected (NOT DETECT) 05/12/23 12:21 ABG Interpretation 1: 05/12/23 05/12/23 12:05 15:10 ABG pH 7.38 7.37 ABG pCO2 71.7 H* 70.7 H* ABG pO2 63.0 L 71.9 L ABG HCO3 42.7 H 40.5 H ABG O2 Saturation 93.0 ABG Base Excess 13.5 H 11.3 H A&P Assessment and plan (1) Respiratory failure with hypoxia and hypercapnia: (2) Heart failure: (3) COPD exacerbation: Plan 63-year-old female with a past medical history of COPD, chronic heart failure with preserved ejection fraction, pulmonary hypertension with PASP of 48 mmHg from 1 year ago. Presented to the emergency room today with shortness of breath and found to have acute on chronic hypoxic hypercapnic respiratory failure Clinical picture appears to be most consistent consistent with COPD exacerbation. Admit to [facility]. Methylprednisolone IV 40 mg every 8 hours. Scheduled nebulization with DuoNeb every 6 hours and budesonide every 12 hours. Screen with D-dimer, if positive to proceed with CTA of the chest to evaluate for PE. Chest x-ray without consolidation. Negative influenza and COVID antigens. Also possibly component of acute on chronic heart failure with preserved ejection fraction. Elevated BNP. Typically patient takes Bumex 1 mg p.o. in the morning. Lasix 40 mg IV now, monitor urine output and kidney function, to reassess further doses based on response. Attestations Medical Necessity Statement*: > 2 midnight admission is anticipated for acute on chronic COPD exacerbation, need for iv steroids, iv diuretics Coding Level of Care Code Acute Code for [facility] Diagnoses Respiratory failure with hypoxia and hypercapnia J96.91; J96.92 Heart failure I50.9 COPD exacerbation J44.1
[2023-05-12] MEDS: enoxaparin 40 mg/0.4 mL Syringe SUBCUT (17:44)
[2023-05-12] MEDS: methylPREDNISolone sod succ 40 mg/mL INJ IVP (17:45)
[2023-05-12 18:41] LABS: D Dimer 0.35 ug/mLFEU (0-0.59)
[2023-05-12] MEDS: FUROsemide 10 mg/mL SDV 2mL 20 MG IVP (19:35)
[2023-05-12] MEDS: FUROsemide 10 mg/mL SDV 4mL 40 MG IVP (19:35)
[2023-05-12 20:10] LABS: Troponin 5 6HR 9.05 ng/L (0-10)
[2023-05-12 20:11] LABS: Troponin 5 6HR Delta -3.95 ng/L (0-12)
[2023-05-12] MEDS: budesonide 0.5 mg/2 mL Neb INHALATION (20:43)
[2023-05-12] MEDS: acetaminophen 325 mg Tablet 650 MG PO (21:53)
[2023-05-13] VITALS (15 sets, daily range): BP systolic 105–134; BP diastolic 65–77; PULSE 80–195; RESP 14–20; TEMP 36.4–37.2; O2SAT 89–98
[2023-05-13] MEDS: cyclobenzaprine 10 mg Tablet 5 MG PO
[2023-05-13] MEDS: nicotine 21 mg Patch 1 PATCH TRANSDERMA (01:49)
[2023-05-13] MEDS: ipratropium-albuterol 3 mL Neb INHALATION ×3 (03:16→14:19)
[2023-05-13] MEDS: lisinopril 10 mg Tablet PO (05:45)
[2023-05-13] MEDS: FUROsemide 10 mg/mL SDV 10mL 60 MG IVP (05:45)
[2023-05-13] MEDS: metoprolol succinate ER (24 HR) 100 mg Tablet PO (05:45)
--- NOTE | 2023-05-13 06:00 | USR_ITS ---
PROCEDURE INFORMATION: Exam: US Duplex Lower Extremity Veins, Bilateral Exam date and time: 05/13/2023 8:04 AM Age: 63 years old Clinical indication: Edema, localized; Lower extremity, right; Additional info: Assymetric leg swelling, suspect dvt TECHNIQUE: Imaging protocol: Real-time duplex ultrasound of the bilateral extremities with 2-D hernandez scale, color Doppler flow and spectral waveform analysis including responses to compression and other maneuvers (when performed) with image documentation. Complete exam focused on the lower extremity veins. COMPARISON: No relevant prior studies available. FINDINGS: Right deep veins: Unremarkable. The common femoral, femoral, proximal profunda femoral and popliteal veins are patent without thrombus. Normal Doppler waveforms. Normal compressibility and/or augmentation response. Left deep veins: Unremarkable. The common femoral, femoral, proximal profunda femoral and popliteal veins are patent without thrombus. Normal Doppler waveforms. Normal compressibility and/or augmentation response. Superficial veins: Greater saphenous veins at the saphenofemoral junctions are patent bilaterally without thrombus. Soft tissues: Unremarkable. Other findings: Bilateral lower extremity deep venous system extending from the groins down to the calves demonstrate low, compression and augmentation, without evidence of DVT. Impression no evidence of bilateral lower extremity DVT. US/[place] [id number] IMPRESSION: No evidence of bilateral lower extremity DVT.
[2023-05-13 06:02] LABS: Basophils % 0.1 %; Lymphocytes # 0.5 10^3/uL (0.8-4.8); Lymphocytes % 6.5 %; Mean Corpuscular HGB Conc 27.9 g/dL (30-55); Mean Corpuscular Hemoglobin 23.4 pg (27-33); Mean Platelet Volume 9.3 fL (7.4-10.4); Monocytes # 0.1 10^3/uL (0.2-0.9); Monocytes % 1.1 %; Neutrophils # 6.94 10^3/uL (1.8-7.7); Neutrophils % 91.6 %; Nucleated Red Blood Cells % 0 %; Platelet Count 325 10^3/cmm (157-399); Red Blood Count 6.67 10^6/uL (3.85-5.65); Red Cell Distribution Width 18.8 % (12.1-15.1); White Blood Count 7.57 10^3/uL (3.29-11.43)
[2023-05-13 06:22] LABS: Alanine Aminotransferase 10 U/L (0-33); Albumin Level 3.6 g/dL (3.5-5.2); Alkaline Phosphatase 88 U/L (35-105); Anion Gap 11.3 (5-19); Aspartate Amino Transferase 10 U/L (0-32); Blood Urea Nitrogen 13 mg/dL (8-23); Calcium 8.7 mg/dL (8.5-10.5); Carbon Dioxide 39 mmol/L (22-29); Chloride 95 mmol/L (98-107); Creatinine Clr Calc Pharmacy 127.0348; Globulin 3.1 g/dL (1.3-4.6); Glomerular Filtration Rate 124.6 mL/min (90-130); Glucose 158 mg/dL (65-115); Osmolality Calculated 295 mOsm/kg (285-295); Potassium 4.3 mmol/L (3.5-5.1); Sodium 141 mmol/L (136-145); Total Bilirubin 0.4 mg/dL (0.15-1.2); Total Protein 6.7 g/dL (6.6-8.7)
[2023-05-13] MEDS: methylPREDNISolone sod succ 40 mg/mL INJ IVP ×3 (08:02→16:51)
[2023-05-13] MEDS: morphine 4 mg/mL SDV 1 mL 2 MG IVP (08:02)
[2023-05-13] MEDS: budesonide 0.5 mg/2 mL Neb INHALATION (08:31)
[2023-05-13] MEDS: pantoprazole DR 40 mg Tablet PO (10:05)
--- NOTE | 2023-05-13 16:27 | P.PN_ITS ---
Subjective 2 Subjective: Urine output 1500 cc. Net -300 mL. Kidney function is stable. Lower extremity edema is only slightly better. Continues to be on 4 L/min supplemental O2. States that breathing is about the same. Medications: Reviewed: Yes Vitals/I&O/Wt Last Vital Signs Temp 98.1 F 05/13/23 16:00 Pulse 98 05/13/23 16:00 Resp 20 H 05/13/23 16:00 BP 105/65 05/13/23 16:00 Pulse Ox 92 05/13/23 16:00 O2 Del Method Oxymask 05/13/23 16:00 O2 Flow Rate 5 05/13/23 14:20 FiO2 30 05/13/23 03:49 05/13/23 05/13/23 05/13/23 06:59 14:59 22:59 Intake Total 120 / 270 840 / 840 Output Total 1500 / 1500 Balance 120 / 270 -660 / -660 Weight last 48 hrs Weight 99.535 kg Weight 102.965 kg Physical Exam 2 Narrative: General: No acute distress, AO x3 HEENT: PERRLA, pupils bilaterally equal and reactive, pallors not present Chest: Normal vesicular breath sounds, no added sounds, equal good air entry bilaterally CVS: S1-S2 regular, no murmurs, no tachycardia, no gallops, no rubs Abdomen: Soft, nontender, no organomegaly, bowel sounds present Neuro: No focal deficits, no facial deformity, AO x3, power 5/5 in all limbs ext: pitting edema B/L LE Data 05/13/23 05:37 05/13/23 05:37 A&P Assessment and plan (1) Respiratory failure with hypoxia and hypercapnia: (2) Heart failure: (3) COPD exacerbation: Plan 63-year-old female with a past medical history of COPD, chronic heart failure with preserved ejection fraction, pulmonary hypertension with PASP of 48 mmHg from 1 year ago. Presented to the emergency room today with shortness of breath and found to have acute on chronic hypoxic hypercapnic respiratory failure Clinical picture appears to be most consistent consistent with COPD exacerbation. Patient also has bilateral lower extremity swelling, this has been ongoing for at least the past 3 to 4 weeks per additional history available from her. She has been tried on outpatient diuresis with Bumex, however she states that she has not had any significant response to the same. She had an echocardiogram about 1 week ago ordered by her primary care provider at [facility]. Requested results of the study. Admit to [facility]. Methylprednisolone IV 40 mg every 8 hours. Scheduled nebulization with DuoNeb every 6 hours and budesonide every 12 hours. Screen with D-dimer, if positive to proceed with CTA of the chest to evaluate for PE. Chest x-ray without consolidation. Negative influenza and COVID antigens. Also possibly component of acute on chronic heart failure with preserved ejection fraction. Elevated BNP. Typically patient takes Bumex 1 mg p.o. in the morning. Lasix 40 mg IV now, monitor urine output and kidney function, to reassess further doses based on response. Plan for today May 13, 2023. D-dimer negative. Low probability of PE. Lower extremity Doppler negative for DVT. Lower extremity swelling is slightly better but not significantly. Continues to be on 4 L/min supplemental O2. Increase diuresis from Lasix 60 mg IV every 12 hours to 80 mg IV every 12 hours. Monitor urine output and kidney function with this change. Echocardiogram requested from [facility], patient states this was performed less than 1 week ago. Reduce methylprednisolone to 40 mg IV every 12 hours. Attestations 2 Medical Necessity Statement*: Continued admission for IV diuresis, IV steroids for COPD and CHF exacerbation. Coding Level of Care Code Acute Code for [facility] Fwd Moderate MDM includes number and complexity of problems actively addressed during encounter, amount and/or complexity of data reviewed/ordered and described risk of complication, morbidity or mortality of management as documented Diagnoses Respiratory failure with hypoxia and hypercapnia J96.91; J96.92 Heart failure I50.9 COPD exacerbation J44.1
[2023-05-13] MEDS: FUROsemide 10 mg/mL SDV 10mL 80 MG IVP (16:52)
[2023-05-13] MEDS: enoxaparin 40 mg/0.4 mL Syringe SUBCUT (17:37)
[2023-05-13] MEDS: acetaminophen 325 mg Tablet 650 MG PO (20:29)
[2023-05-14] VITALS (16 sets, daily range): BP systolic 119–145; BP diastolic 64–80; PULSE 68–100; RESP 14–20; TEMP 36.6–36.8; O2SAT 92–96
[2023-05-14] MEDS: cyclobenzaprine 10 mg Tablet 5 MG PO (00:32)
[2023-05-14] MEDS: methylPREDNISolone sod succ 40 mg/mL INJ IVP ×3 (00:32→16:56)
[2023-05-14] MEDS: ipratropium-albuterol 3 mL Neb INHALATION ×3 (04:02→15:03)
[2023-05-14 04:16] LABS: Basophils % 0.2 %; Hematocrit 56.9 % (36-47); Lymphocytes # 0.6 10^3/uL (0.8-4.8); Lymphocytes % 4.5 %; Mean Corpuscular HGB Conc 27.6 g/dL (30-55); Mean Corpuscular Hemoglobin 23.1 pg (27-33); Mean Corpuscular Volume 83.6 fl (85-98); Monocytes # 0.2 10^3/uL (0.2-0.9); Monocytes % 1.7 %; Neutrophils # 11.96 10^3/uL (1.8-7.7); Nucleated Red Blood Cells % 0 %; Platelet Count 358 10^3/cmm (157-399); Red Blood Count 6.81 10^6/uL (3.85-5.65); Red Cell Distribution Width 19.4 % (12.1-15.1); White Blood Count 12.86 10^3/uL (3.29-11.43)
[2023-05-14 04:30] LABS: Alanine Aminotransferase 12 U/L (0-33); Albumin Level 3.6 g/dL (3.5-5.2); Alkaline Phosphatase 84 U/L (35-105); Aspartate Amino Transferase 14 U/L (0-32); Blood Urea Nitrogen 24 mg/dL (8-23); Calcium 8.7 mg/dL (8.5-10.5); Carbon Dioxide 37 mmol/L (22-29); Chloride 92 mmol/L (98-107); Creatinine Clr Calc Pharmacy 105.8623; Globulin 3.4 g/dL (1.3-4.6); Glucose 168 mg/dL (65-115); Osmolality Calculated 290 mOsm/kg (285-295); Sodium 136 mmol/L (136-145); Total Bilirubin 0.4 mg/dL (0.15-1.2)
[2023-05-14] MEDS: metoprolol succinate ER (24 HR) 100 mg Tablet PO (05:22)
[2023-05-14] MEDS: FUROsemide 10 mg/mL SDV 10mL 80 MG IVP ×2 (05:22→16:56)
[2023-05-14] MEDS: lisinopril 10 mg Tablet PO (05:22)
[2023-05-14] MEDS: budesonide 0.5 mg/2 mL Neb INHALATION (08:02)
[2023-05-14] MEDS: nicotine 21 mg Patch 1 PATCH TRANSDERMA (08:36)
[2023-05-14] MEDS: pantoprazole DR 40 mg Tablet PO (08:37)
--- NOTE | 2023-05-14 10:11 | PC.CHAP ---
Pastoral Care Encounter/Spiritual Assessment Type of Contact [] Declined fast food worker visit [] Patient/Family/Request visit [] Outpatient visit [] Follow-up visit [] Physician referral [] Code/Alert [x] Routine visit [] Staff referral [] Actively dying [x] Patient sleeping [] Family support [] [] Out of room [] Palliative care [] [] Receiving care in room [] Pre-surgical visit [] Trauma [] Long length of stay [] ICU visit [] Other: Relational/Emotional Strength [] Patient feels connected with others/family/visitors/staff [] Distress [] Loneliness/isolation [] Abandonment Spirituality of Patient [] Person of Corina [] Attends Quaker of their Corina [] Believes in Prayer [] Reads Bible or Catholic materials [] There are Spiritual issues to be addressed Record Maker Interventions [] Prayer [] Active listening [] Non-anxious presence [] Spiritual/emotional support [] Crisis/trauma care [] Spiritual counseling [] Bereavement support [] Provided bereavement packet [] Provided Bible/devotional materials [] Provided toy/stuffed animal, coloring book to patient or family member [] Provided Communion [] Anointing/[place] [] Salvation [] Completed spiritual assessment [] Other: Impact on Illness or Injury [] Angry [] Fearful [] Anxious [] Often cries [] Exhaustion [] Unable to work [] Unable to attend sabianism [] Unable to walk/stand [] Unable to read [] Unable to drive [] Unable to eat/drink [] Unable to sleep [] Unable to be with family [] Patient intubated [] Other: Summary Time spent with patient
--- NOTE | 2023-05-14 11:33 | PC.SOCIAL ---
IMM Update pg 2 of IMM updated and reviewed w/ patient. Copy provided and copy dated, initialed and placed in chart.
--- NOTE | 2023-05-14 12:57 | P.PN_ITS ---
Subjective 2 Subjective: Seen this morning. Patient on 5 L nasal cannula at this time. He says she uses 2 L at home. Says she wants her blood pressure medication this morning she has not received it. Vitals/I&O/Wt Last Vital Signs Temp 98.3 F 05/14/23 11:48 Pulse 95 05/14/23 11:48 Resp 16 05/14/23 11:48 BP 122/73 05/14/23 11:48 Pulse Ox 96 05/14/23 11:48 O2 Del Method Simple Mask 05/14/23 11:48 O2 Flow Rate 5 05/14/23 08:03 FiO2 30 05/13/23 03:49 05/13/23 05/14/23 05/14/23 22:59 06:59 14:59 Intake Total 860 / 1700 240 / 240 Output Total 650 / 2150 1650 / 3800 Balance 210 / -450 -1650 / -2100 240 / 240 Weight last 48 hrs Weight 97.749 kg Weight 99.535 kg Physical Exam 2 Narrative: General: No acute distress, AO x3 HEENT: PERRLA, pupils bilaterally equal and reactive, pallors not present Chest: Normal vesicular breath sounds, no added sounds, equal good air entry bilaterally CVS: S1-S2 regular, no murmurs, no tachycardia, no gallops, no rubs Abdomen: Soft, nontender, no organomegaly, bowel sounds present Neuro: No focal deficits, no facial deformity, AO x3 Data 05/14/23 03:42 05/14/23 03:42 A&P Assessment and plan (1) Respiratory failure with hypoxia and hypercapnia: (2) Heart failure: (3) COPD exacerbation: Plan 63-year-old female with a past medical history of COPD, chronic heart failure with preserved ejection fraction, pulmonary hypertension with PASP of 48 mmHg from 1 year ago. Presented to the emergency room today with shortness of breath and found to have acute on chronic hypoxic hypercapnic respiratory failure Clinical picture appears to be most consistent consistent with COPD exacerbation. Patient also has bilateral lower extremity swelling, this has been ongoing for at least the past 3 to 4 weeks per additional history available from her. She has been tried on outpatient diuresis with Bumex, however she states that she has not had any significant response to the same. She had an echocardiogram about 1 week ago ordered by her primary care provider at [facility]. Requested results of the study. Admit to [facility]. Methylprednisolone IV 40 mg every 8 hours. Scheduled nebulization with DuoNeb every 6 hours and budesonide every 12 hours. Screen with D-dimer, if positive to proceed with CTA of the chest to evaluate for PE. Chest x-ray without consolidation. Negative influenza and COVID antigens. Also possibly component of acute on chronic heart failure with preserved ejection fraction. Elevated BNP. Typically patient takes Bumex 1 mg p.o. in the morning. Lasix 40 mg IV now, monitor urine output and kidney function, to reassess further doses based on response. Plan for today May 13, 2023. D-dimer negative. Low probability of PE. Lower extremity Doppler negative for DVT. Lower extremity swelling is slightly better but not significantly. Continues to be on 4 L/min supplemental O2. Increase diuresis from Lasix 60 mg IV every 12 hours to 80 mg IV every 12 hours. Monitor urine output and kidney function with this change. Echocardiogram requested from [facility], patient states this was performed less than 1 week ago. Reduce methylprednisolone to 40 mg IV every 12 hours. May 14, 2023 ? Lower extremity edema 1-2+ still present. ? Still on 5 L nasal cannula ? Continue Lasix 80 IV twice daily as of yesterday. ? Echocardiogram from history and still pending. ? Continue same plan as best today for now. Full code Attestations 2 Medical Necessity Statement*: Continued admission for IV diuresis, IV steroids for COPD and CHF exacerbation. Diagnoses Respiratory failure with hypoxia and hypercapnia J96.91; J96.92 Heart failure I50.9 COPD exacerbation J44.1
[2023-05-14] MEDS: enoxaparin 40 mg/0.4 mL Syringe SUBCUT (16:56)
[2023-05-14] MEDS: acetaminophen 325 mg Tablet 650 MG PO (20:51)
[2023-05-14] MEDS: docusate sodium 100 mg Capsule PO (22:18)
[2023-05-14] MEDS: morphine 4 mg/mL SDV 1 mL 2 MG IVP (22:20)
[2023-05-15] VITALS (12 sets, daily range): BP systolic 130–161; BP diastolic 68–89; PULSE 70–99; RESP 17–20; TEMP 36.3–36.9; O2SAT 90–96
[2023-05-15] MEDS: methylPREDNISolone sod succ 40 mg/mL INJ IVP ×2 (01:06→08:42)
[2023-05-15] MEDS: ipratropium-albuterol 3 mL Neb INHALATION ×2 (02:54→09:40)
[2023-05-15] MEDS: FUROsemide 10 mg/mL SDV 10mL 80 MG IVP ×2 (04:24→15:55)
[2023-05-15] MEDS: lisinopril 10 mg Tablet PO (05:47)
[2023-05-15] MEDS: metoprolol succinate ER (24 HR) 100 mg Tablet PO (05:47)
[2023-05-15 05:50] LABS: Basophils % 0.1 %; Hematocrit 60.9 % (36-47); Lymphocytes # 0.5 10^3/uL (0.8-4.8); Lymphocytes % 3.5 %; Mean Corpuscular HGB Conc 27.8 g/dL (30-55); Mean Corpuscular Hemoglobin 23.6 pg (27-33); Mean Corpuscular Volume 85.1 fl (85-98); Mean Platelet Volume 9.3 fL (7.4-10.4); Monocytes # 0.5 10^3/uL (0.2-0.9); Monocytes % 3.5 %; Neutrophils # 12.65 10^3/uL (1.8-7.7); Neutrophils % 92.3 %; Nucleated Red Blood Cells % 0 %; Platelet Count 374 10^3/cmm (157-399); Red Blood Count 7.16 10^6/uL (3.85-5.65); Red Cell Distribution Width 19.6 % (12.1-15.1)
[2023-05-15 06:12] LABS: Blood Urea Nitrogen 29 mg/dL (8-23); Carbon Dioxide 36 mmol/L (22-29); Chloride 87 mmol/L (98-107); Creatinine Clr Calc Pharmacy 104.4224; Glucose 205 mg/dL (65-115); Osmolality Calculated 292 mOsm/kg (285-295); Sodium 135 mmol/L (136-145)
[2023-05-15 06:15] LABS: Anion Gap 16.5 (5-19); Potassium 4.5 mmol/L (3.5-5.1)
[2023-05-15] MEDS: acetaminophen 325 mg Tablet 650 MG PO ×3 (06:41→21:09)
[2023-05-15] MEDS: pantoprazole DR 40 mg Tablet PO (08:41)
[2023-05-15] MEDS: nicotine 21 mg Patch 1 PATCH TRANSDERMA (08:41)
[2023-05-15] MEDS: docusate sodium 100 mg Capsule PO ×2 (08:41→16:55)
[2023-05-15] MEDS: budesonide 0.5 mg/2 mL Neb INHALATION (09:40)
--- NOTE | 2023-05-15 10:00 | USCV_ITS ---
Nadine Herrera Age: 63 Gender: F : 1960 Exam Date: 05/15/2023 10:11 Ordering Phys: Chloe Anderson MD Technologist: Exam Location: [facility] – [place] Indication: new chf BP: 134 / 73 HR: 138 Rhythm: Sinus Technical Quality: Adequate MEASUREMENTS (Male / Female) Normal Values 2D ECHO LV Diastolic Diameter PLAX 3.8 cm 4.2 - 5.9 / 3.9 - 5.3 cm IVS Diastolic Thickness 1.5 cm 0.6 - 1.0 / 0.6 - 0.9 cm IVS Systolic Thickness 2.2 cm LVPW Diastolic Thickness 1.1 cm 0.6 - 1.0 / 0.6 - 0.9 cm LVPW Systolic Thickness 1.7 cm LVOT Diameter 2.1 cm LV Ejection Fraction 2D Teich 81.0 % LV Ejection Fraction MOD 2C 55.2 % LV Ejection Fraction 2C AL 56.9 % LA Diameter 3.3 cm RA Systolic Volume 4C AL 81.4 ml RA Systolic Volume 4C MOD 79.0 ml M-MODE LA Ao Ratio MM 1.0 AV Cusp Separation MM 1.8 cm DOPPLER AV Peak Velocity 166.0 cm/s LVOT Peak Velocity 143.0 cm/s AV Area Cont Eq vti 2.9 cm squared AV Area Cont Eq pk 2.9 cm squared MV Peak Velocity 158.0 cm/s MV Area PHT 4.0 cm squared Mitral E to A Ratio 0.9 TR Peak Velocity 354.0 cm/s TR Peak Gradient 50.1 mmHg TV Peak E Velocity 95.0 cm/s Right Atrial Pressure 3.0 mmHg Pulmonary Artery Systolic Pressu 53.1 mmHg PV Peak Velocity 162.0 cm/s FINDINGS Left Ventricle Normal left ventricular size and systolic function, EF 57%.mild left ventricular hypertrophy. No regional wall motion abnormalities. Grade I/IV diastolic dysfunction (abnormal relaxation filling pattern), normal to mildly elevated filling pressures. Right Ventricle Mildly increased right ventricular size. Normal right ventricular systolic function. Right Atrium Mildly increased right atrial size. Left Atrium Normal left atrial size. Mitral Valve Thickened mitral valve. Moderate mitral annular calcification. Aortic Valve Thickened aortic valve. Mild aortic valve calcification. Tricuspid Valve Trace to mild tricuspid valve regurgitation. Pulmonic Valve Pulmonic valve not well visualized. Pericardium No pericardial effusion. Aorta Normal aortic annulus size. IVC Inferior vena cava not visualized. CONCLUSIONS Normal left ventricular size and systolic function, EF 57%.mild left ventricular hypertrophy. No regional wall motion abnormalities. Grade I/IV diastolic dysfunction (abnormal relaxation filling pattern), normal to mildly elevated filling pressures. Mildly dilated right atrium right ventricle. Normal right ventricular ejection fraction. Thickened mitral valve. Moderate mitral annular calcification. Thickened aortic valve. Mild aortic valve calcification. Trace to mild tricuspid valve regurgitation. Moderate pulmonary hypertension with an estimated pulmonary artery peak systolic pressure 53 mmHg. There is no pericardial effusion. Compared to the study from 02/20/2022, there may not be a significant change Dr Renee Ribeiro MD [facility] (Electronically Signed) Final Date: 15 May 2023 22:03 S
--- NOTE | 2023-05-15 10:10 | PC.CHAP ---
Pastoral Care Encounter/Spiritual Assessment Type of Contact [] Declined event av operator visit [] Patient/Family/Request visit [] Outpatient visit [] Follow-up visit [] Physician referral [] Code/Alert [x] Routine visit [] Staff referral [] Actively dying [] Patient sleeping [] Family support [] [] Out of room [] Palliative care [] [] Receiving care in room [] Pre-surgical visit [] Trauma [] Long length of stay [] ICU visit [] Other: Relational/Emotional Strength [x] Patient feels connected with others/family/visitors/staff [] Distress [] Loneliness/isolation [] Abandonment Spirituality of Patient [x] Person of Corina [] Attends Moravian of their [place] [x] Believes in Prayer [] Reads Bible or Episcopalian materials [] There are Spiritual issues to be addressed Oral Communication Instructor Interventions [x] Prayer [x] Active listening [] Non-anxious presence [x] Spiritual/emotional support [] Crisis/trauma care [] Spiritual counseling [] Bereavement support [] Provided bereavement packet [] Provided Bible/devotional materials [] Provided toy/stuffed animal, coloring book to patient or family member [] Provided Communion [] Anointing/[place] [] Salvation [x] Completed spiritual assessment [] Other: Impact on Illness or Injury [] Angry [] Fearful [] Anxious [] Often cries [] Exhaustion [] Unable to work [] Unable to attend advent [] Unable to walk/stand [] Unable to read [] Unable to drive [] Unable to eat/drink [] Unable to sleep [] Unable to be with family [] Patient intubated [] Other: Summary Time spent with patient 10 min
--- NOTE | 2023-05-15 12:04 | CT_ITS ---
WS: [id number] CTA OF THE CHEST WITH PULMONARY EMBOLISM PROTOCOL TECHNIQUE: High-resolution contrast enhanced CTA of the chest with coronal and sagittal reformatted i karyns with pulmonary embolism protocol. MIP images are also reviewed. CLINICAL INFORMATION: r/o PE, hypoxia 5L O2 req COMPARISON: CT 02/20/2022 DLP: 447.[address] scans at [facility] use at least one of these dose optimization techniques: automated e xposure control; mA and/or kV adjustment per patient size (includes targeted exams where dose is matc hed to clinical indication); or iterative reconstruction. FINDINGS: Proximal main pulmonary arteries are normal. Normal segmental and subsegmental pulmonary ar teries. No evidence of pulmonary embolus. Previously described LEFT lower lobe infiltrate has improved compared to previous 02/20/2022. Persisten t hazy infiltrates in the LEFT lower lobe likely infectious or inflammatory. Recommend follow-up to r esolution. Subsegmental atelectasis RIGHT lower lobe. Subsegmental atelectasis in the RIGHT middle lo be. Cardiomegaly. Aortic calcification. No mediastinal or hilar lymphadenopathy. No axillary lymphadenopa thy. Small esophageal hiatal hernia. Partially visualized hepatomegaly with mild diffuse fatty infiltratio n. IMPRESSION: 1. No evidence of pulmonary embolus 2. Hazy groundglass infiltrate in the LEFT lower lobe likely infectious or inflammatory. Recommend f ollow-up to resolution. 3. Cardiomegaly. 4. Small esophageal hiatal hernia.
[2023-05-15] MEDS: methylPREDNISolone sod succ 40 mg/mL INJ 60 MG IVP ×2 (12:50→21:08)
--- NOTE | 2023-05-15 12:57 | P.PN_ITS ---
Subjective 2 Subjective: Seen this morning. Patient on 5 L nasal cannula saturating 92%. She says she wears 2 L at home however was prescribed 4 L in the past. She also stated that 2 L was not enough for her. She also stated that she does not titrate her oxygen and Using the machine the weight was set up for her initially.?? 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 She says she has had a lot of environmental exposures. Has been a former smoker as well. Echo reviewed from [facility]. No evidence of diastolic dysfunction or impaired ejection fraction. Patient has been on Lasix IV 80 twice daily. Net 2 L negative since admission. Vitals/I&O/Wt Last Vital Signs Temp 98.4 F 05/15/23 12:00 Pulse 99 05/15/23 12:00 Resp 18 05/15/23 12:00 BP 142/70 05/15/23 12:00 Pulse Ox 92 05/15/23 12:00 O2 Del Method Nasal Cannula 05/15/23 12:00 O2 Flow Rate 5 05/15/23 09:40 FiO2 30 05/13/23 03:49 05/14/23 05/15/23 05/15/23 22:59 06:59 14:59 Intake Total 840 / 1320 840 / 840 Output Total 250 / 250 300 / 550 1999 / 1999 Balance 590 / 1070 -300 / 770 -1160 / -1160 Weight last 48 hrs Weight 97.159 kg Weight 97.749 kg Physical Exam 2 Narrative: General: No acute distress, AO x3 HEENT: PERRLA, pupils bilaterally equal and reactive, pallors not present Chest: Decreased air entry bilaterally, no wheezes no rhonchi at this time. No crackles at bases appreciated. Does tend to cough from time to time. CVS: S1-S2 regular, no murmurs, no tachycardia, no gallops, no rubs Abdomen: Soft, nontender, no organomegaly, bowel sounds present Neuro: No focal deficits, no facial deformity, AO x3 Data 05/15/23 05:27 05/15/23 05:27 A&P Assessment and plan (1) Respiratory failure with hypoxia and hypercapnia: (2) Heart failure: (3) COPD exacerbation: Plan 63-year-old female with a past medical history of COPD, chronic heart failure with preserved ejection fraction, pulmonary hypertension with PASP of 48 mmHg from 1 year ago. Presented to the emergency room today with shortness of breath and found to have acute on chronic hypoxic hypercapnic respiratory failure Clinical picture appears to be most consistent consistent with COPD exacerbation. Patient also has bilateral lower extremity swelling, this has been ongoing for at least the past 3 to 4 weeks per additional history available from her. She has been tried on outpatient diuresis with Bumex, however she states that she has not had any significant response to the same. She had an echocardiogram about 1 week ago ordered by her primary care provider at [facility]. Requested results of the study. Admit to [facility]. Methylprednisolone IV 40 mg every 8 hours. Scheduled nebulization with DuoNeb every 6 hours and budesonide every 12 hours. Screen with D-dimer, if positive to proceed with CTA of the chest to evaluate for PE. Chest x-ray without consolidation. Negative influenza and COVID antigens. Also possibly component of acute on chronic heart failure with preserved ejection fraction. Elevated BNP. Typically patient takes Bumex 1 mg p.o. in the morning. Lasix 40 mg IV now, monitor urine output and kidney function, to reassess further doses based on response. Plan for today May 13, 2023. D-dimer negative. Low probability of PE. Lower extremity Doppler negative for DVT. Lower extremity swelling is slightly better but not significantly. Continues to be on 4 L/min supplemental O2. Increase diuresis from Lasix 60 mg IV every 12 hours to 80 mg IV every 12 hours. Monitor urine output and kidney function with this change. Echocardiogram requested from [facility], patient states this was performed less than 1 week ago. Reduce methylprednisolone to 40 mg IV every 12 hours. May 14, 2023 ? Lower extremity edema trace present ? Still on 5 L nasal cannula ? Continue Lasix 80 IV twice daily for now. ? Cardiogram reviewed. No evidence of systolic or diastolic heart failure on echo present. Final report pending. ? Will check CTA chest to rule out PE and to check for pulmonary fibrosis? ? Possibility of hypersensitivity pneumonitis secondary to environmental exposures?? ? Has been a former smoker in the past as well. ? I will try high-dose steroids. Placed on methylprednisone 60 every 8 hours ? Will check home oxygen evaluation in AM. Patient will need pulmonary consultation and referral at discharge. ? Further management to be dictated after CT chest reviewed. ? Along with diastolic heart failure there might be a pulmonary component at this time. ? Patient will most likely need oxygen at time of discharge. Full code Attestations 2 Medical Necessity Statement*: Continued admission for IV diuresis, IV steroids for COPD and CHF exacerbation. Diagnoses Respiratory failure with hypoxia and hypercapnia J96.91; J96.92 Heart failure I50.9 COPD exacerbation J44.1
[2023-05-15] MEDS: iohexol 350 mg/mL 500 mL Btl (per mL) IV (14:47)
[2023-05-15] MEDS: enoxaparin 40 mg/0.4 mL Syringe SUBCUT (15:56)
[2023-05-16 03:58] VITALS: BP 157/82; PULSE 83; RESP 17; TEMP 36.4; O2SAT 96
[2023-05-16] MEDS: methylPREDNISolone sod succ 40 mg/mL INJ 60 MG IVP ×2 (04:18→12:53)
[2023-05-16] MEDS: FUROsemide 10 mg/mL SDV 10mL 80 MG IVP (04:19)
[2023-05-16 04:57] LABS: Basophils % 0.2 %; Hematocrit 61.5 % (36-47); Lymphocytes # 0.7 10^3/uL (0.8-4.8); Lymphocytes % 6.8 %; Mean Corpuscular Hemoglobin 23.5 pg (27-33); Mean Corpuscular Volume 84.1 fl (85-98); Mean Platelet Volume 9.2 fL (7.4-10.4); Monocytes # 0.9 10^3/uL (0.2-0.9); Monocytes % 8.5 %; Neutrophils # 9.05 10^3/uL (1.8-7.7); Nucleated Red Blood Cells % 0 %; Platelet Count 364 10^3/cmm (157-399); Red Blood Count 7.31 10^6/uL (3.85-5.65); Red Cell Distribution Width 19.8 % (12.1-15.1); White Blood Count 10.76 10^3/uL (3.29-11.43)
[2023-05-16 05:14] LABS: Blood Urea Nitrogen 23 mg/dL (8-23); Calcium 9.1 mg/dL (8.5-10.5); Carbon Dioxide 40 mmol/L (22-29); Chloride 88 mmol/L (98-107); Creatinine Clr Calc Pharmacy 154.9847; Glomerular Filtration Rate 161.2 mL/min (90-130); Glucose 154 mg/dL (65-115); Magnesium 2.1 mg/dL (1.7-2.3); Osmolality Calculated 287 mOsm/kg (285-295); Sodium 135 mmol/L (136-145)
[2023-05-16] MEDS: metoprolol succinate ER (24 HR) 100 mg Tablet PO (05:38)
[2023-05-16] MEDS: lisinopril 10 mg Tablet PO (05:38)
[2023-05-16] MEDS: acetaminophen 325 mg Tablet 650 MG PO (06:26)
[2023-05-16 06:49] VITALS: PULSE 91
[2023-05-16 07:42] VITALS: BP 119/70; PULSE 84; RESP 18; TEMP 36.8; O2SAT 95
[2023-05-16 08:24] VITALS: PULSE 84; RESP 18; O2SAT 94
[2023-05-16] MEDS: nicotine 21 mg Patch 1 PATCH TRANSDERMA (08:31)
[2023-05-16] MEDS: pantoprazole DR 40 mg Tablet PO (08:32)
[2023-05-16] MEDS: docusate sodium 100 mg Capsule PO (08:32)
--- NOTE | 2023-05-16 10:01 | PC.SOCIAL ---
IMM Update pg 2 of IMM updated and reviewed w/ patient. Copy provided and copy dated, initialed and placed in chart.
[2023-05-16 11:12] VITALS: O2SAT 87; O2SAT 94
[2023-05-16 11:24] VITALS: BP 142/88; PULSE 87; RESP 20; TEMP 36.7; O2SAT 91
--- NOTE | 2023-05-16 12:01 | P.DS_ITS ---
Discharge Providers Date of Admission: 05/12/23 16:16 Date of Discharge: May 16, 2023 Attending Provider at Admission: Amarilys Jones MD Attending Provider at Discharge: Chloe Anderson MD Primary Care Provider: Nathan Schultz Diagnoses at Discharge Discharge Diagnosis (1) Respiratory failure with hypoxia and hypercapnia: Status: Acute (2) Heart failure: Status: Acute (3) COPD exacerbation: Status: Acute Reason for Visit Reason for Visit: SOB Hospital Course Hospital Course Initially admitted for CHF exacerbation and was diuresed with Lasix however oxygen requirement was not coming down. Discharge Data Studies Completed and Pending Completed Studies During Hospitalization Category Date Time Status CTA chest [CT angio chest PE protcl [id number]] Urgent Cat Scan 05/15/23 12:04 Completed XR chest 1V portable [id number] Stat Exams 05/12/23 11:39 [place] [id number] Routine Ultrasound 05/13/23 06:00 Completed CV. echo complete* [id number] Stat Ultrasound 05/15/23 10:00 Completed Radiology Impressions Chest X-Ray 05/12/23 11:39 IMPRESSION: Bibasilar atelectasis/infiltrates. Venous Duplex 05/13/23 06:00 IMPRESSION: No evidence of bilateral lower extremity DVT. Laboratory Results WBC 10.76 10^3/uL (3.29-11.43) 05/16/23 04:42 RBC 7.31 10^6/uL (3.85-5.65) H 05/16/23 04:42 Hgb 17.20 g/dL (11.27-16.99) H 05/16/23 04:42 Hct 61.5 % (36-47) H 05/16/23 04:42 MCV 84.1 fl (85-98) L 05/16/23 04:42 MCH 23.5 pg (27-33) L 05/16/23 04:42 MCHC 28.0 g/dL (30-55) L 05/16/23 04:42 RDW 19.8 % (12.1-15.1) H 05/16/23 04:42 Plt Count 364 10^3/cmm (157-399) 05/16/23 04:42 MPV 9.2 fL (7.4-10.4) 05/16/23 04:42 Neut % (Auto) 84.0 % 05/16/23 04:42 Lymph % (Auto) 6.8 % 05/16/23 04:42 [place] % (Auto) 8.5 % 05/16/23 04:42 Eos % (Auto) 0.0 % 05/16/23 04:42 Baso % (Auto) 0.2 % 05/16/23 04:42 Neut # (Auto) 9.05 10^3/uL (1.8-7.7) H 05/16/23 04:42 Lymph # (Auto) 0.7 10^3/uL (0.8-4.8) L 05/16/23 04:42 [place] # (Auto) 0.9 10^3/uL (0.2-0.9) 05/16/23 04:42 Eos # (Auto) 0.0 10^3/uL (0.0-0.8) 05/16/23 04:42 Baso # (Auto) 0.0 10^3/uL (0.0-0.1) 05/16/23 04:42 Nucleated RBC % (auto) 0 % 05/16/23 04:42 Nucleated RBCs # 0.0 /100WBC 05/16/23 04:42 D-Dimer 0.35 ug/mLFEU (0-0.59) 05/12/23 12:24 Specimen Type Arterial 05/12/23 15:10 Sample Site Radial, right 05/12/23 15:10 ABG pH 7.37 (7.35-7.45) 05/12/23 15:10 ABG pCO2 70.7 mmHg (35-45) H* 05/12/23 15:10 ABG pO2 71.9 mmHg (80.0-100.0) L 05/12/23 15:10 ABG PO2/FiO2 Ratio 0 05/12/23 15:10 ABG HCO3 40.5 mmol/L (22-26) H 05/12/23 15:10 ABG O2 Saturation 93.0 05/12/23 12:05 ABG Base Excess 11.3 mmol/L (-2.0-2.0) H 05/12/23 15:10 Magnus Test Pos 05/12/23 15:10 A-a O2 Gradient 14.3 mmHg (5-10) H 05/12/23 12:05 Hematocrit 50.4 % (37-47) H 05/12/23 15:10 Hgb O2 Saturation 87.9 % (95-100) L 05/12/23 12:05 Carboxyhemoglobin 5.1 %THgb (0.4-20.1) 05/12/23 12:05 Methemoglobin 0.4 % (0.4-1.5) 05/12/23 12:05 Total Hemoglobin 16.0 g/dL (12-16) 05/12/23 12:05 Sodium 139.0 mmol/L (131-143) 05/12/23 12:05 Potassium 4.6 mmol/L (3.5-5.0) 05/12/23 12:05 Glucose 99.0 mg/dL (70-115) 05/12/23 12:05 Ionized Calcium 1.2 mmol/L (1.1-1.4) 05/12/23 12:05 O2 Delivery Device Bipap 05/12/23 15:10 O2 Liters/Min 4.0 % 05/12/23 12:05 FiO2 40.0 % 05/12/23 15:10 Liver Trimmer ID [place] 05/12/23 15:10 Sodium 135 mmol/L (136-145) L 05/16/23 04:42 Potassium 4.0 mmol/L (3.5-5.1) 05/16/23 04:42 Chloride 88 mmol/L (98-107) L 05/16/23 04:42 Carbon Dioxide 40 mmol/L (22-29) H 05/16/23 04:42 Anion Gap 11.0 (5-19) 05/16/23 04:42 BUN 23 mg/dL (8-23) 05/16/23 04:42 Creatinine 0.4 mg/dL (0.5-0.9) L 05/16/23 04:42 GFR Calculation 161.2 mL/min (90-130) H 05/16/23 04:42 Glucose 154 mg/dL (65-115) H 05/16/23 04:42 Calculated Osmolality 287 mOsm/kg (285-295) 05/16/23 04:42 Lactic Acid 0.7 mmol/L (0.5-2.2) 05/12/23 12:24 Calcium 9.1 mg/dL (8.5-10.5) 05/16/23 04:42 Magnesium 2.1 mg/dL (1.7-2.3) 05/16/23 04:42 Total Bilirubin 0.4 mg/dL (0.15-1.2) 05/14/23 03:42 AST 14 U/L (0-32) 05/14/23 03:42 ALT 12 U/L (0-33) 05/14/23 03:42 Alkaline Phosphatase 84 U/L (35-105) 05/14/23 03:42 Troponin T Baseline 13 ng/L (0-10) H 05/12/23 12:24 Troponin T 120 Minute 14.28 ng/L (0-10) H 05/12/23 14:29 Delta Troponin T 1.28 ABS# (0-10) 05/12/23 14:29 Troponin T Hi Sens 6Hr 9.05 ng/L (0-10) 05/12/23 18:58 Troponin T Hi Sens 6Hr Delta -3.95 ng/L (0-12) L 05/12/23 18:58 NT-Pro-B Natriuret Pep 1558 pg/mL (0-125) H 05/12/23 12:24 Total Protein 7.0 g/dL (6.6-8.7) 05/14/23 03:42 Albumin 3.6 g/dL (3.5-5.2) 05/14/23 03:42 Globulin 3.4 g/dL (1.3-4.6) 05/14/23 03:42 Urine Color Light yellow (Yellow) 05/12/23 12:21 Urine Appearance Clear (CLEAR) 05/12/23 12:21 Urine pH 8 (5-7) H 05/12/23 12:21 Ur Specific [place] 1.015 (1.005-1.030) 05/12/23 12:21 Urine Protein Neg (Negative) 05/12/23 12:21 Urine Glucose (UA) Norm (Normal) 05/12/23 12:21 Urine Ketones Negative (Negative) 05/12/23 12:21 Urine Blood Neg (Negative) 05/12/23 12:21 Urine Nitrate Negative (Negative) 05/12/23 12:21 Urine Bilirubin Neg (Negative) 05/12/23 12:21 Prot Sulfosalicylic Acd Negative (Negative) 05/12/23 12:21 Urine Urobilinogen Neg mg/dL (Negative) 05/12/23 12:21 Ur Leukocyte Esterase Negative (Negative) 05/12/23 12:21 Ethyl Alcohol < 10 mg/dL (0-10) 05/12/23 12:24 Coronavirus 229E (PCR) Not detected (NOT DETECT) 05/12/23 12:21 Influenza Type A Ag negative (Negative) 05/12/23 12:21 Influenza Type B Ag negative (Negative) 05/12/23 12:21 SARS-CoV-2 (PCR) Not detected (NOT DETECT) 05/12/23 12:21 Vitals Last Vital Signs Temp 98.0 F 05/16/23 11:24 Pulse 87 05/16/23 11:24 Resp 20 H 05/16/23 11:24 BP 142/88 05/16/23 11:24 Pulse Ox 91 05/16/23 11:24 O2 Del Method Nasal Cannula 05/16/23 11:24 O2 Flow Rate 4 05/16/23 11:12 FiO2 30 05/13/23 03:49 Discharge Plan Discharge Patient Disposition: Home Condition: Stable Prescriptions: New pantoprazole 40 mg Tablet,Delayed Release (Dr/Ec) 40 mg PO DAILY Qty: 30 0RF amoxicillin-pot clavulanate 875-125 mg tablet 1 tab PO BID 14 Days Qty: 28 0RF Continued cetirizine [Zyrtec] 10 mg tablet 10 mg PO QAM metoprolol succinate 100 mg tablet extended release 24 hr 100 mg PO QAM lisinopril 10 mg tablet 10 mg PO QAM fluticasone propionate [Flonase Allergy Relief] 50 mcg/actuation spray,suspension 1 spray INTRANASAL DAILY PRN (Reason: Allergy Symptoms) acetaminophen 650 mg Tablet Extended Release 650 - 1,300 mg PO Q6H PRN (Reason: Pain) bumetanide 1 mg tablet 1 mg PO QAM Breztri Aerosphere 160-9-4.8 mcg/actuation HFA aerosol inhaler 2 inh INHALATION BID PRN (Reason: unknown) Discharge Orders: Discharge Order (Routine); Ordered 05/16/23 Ordered By: Chloe Anderson Other Ambulatory Orders: DME: Miscellaneous (Order) Location: None Selected Ordered By: Chloe Anderson DME: Oxygen (Order) Location: None Selected Ordered By: Chloe Anderson CT chest wo con [id number] (Routine) Timeframe: 6 Weeks Facility: [facility] - Location: Radiology [facility] Ordered By: Chloe Anderson Referrals: Nathan Schultz [Primary Care Provider] - 05/23/23 10:30 am Scott Cruz M.D [Physician] - 07/25/23 1:30 pm () Discharge Diet: Cardiac Discharge Activity: Resume usual activity and Oxygen as instructed Patient Instructions: COPD, Amoxicillin/Clavulanate Potassium (By mouth), Pantoprazole (By mouth), Heart Failure (GEN), CHF Stoplight, COPD Stoplight, Opioid Safety Discharge Attestations Time Spent in Discharge Care*: greater than 30 min Quality Metrics Clinical Quality Measures [ No reported AMI, CVA or VTE this stay] Coding Level of Care Code Acute Code for Chg Fwd Diagnoses Respiratory failure with hypoxia and hypercapnia J96.91; J96.92 Heart failure I50.9 COPD exacerbation J44.1
== END 2023-05-16 13:53 | disposition home or self-care (01) | DRG 291 ==
LOC: ER 13:19 → MEDSURG 22:45
PROVIDERS: Admitting Provider Student in an Organized Health Care Education/Training Program; Emergency Provider Family Medicine; PCP Family Medicine; Visit Provider Internal Medicine
DX: I11.0 Hypertensive heart disease with heart failure (principal); I50.33 Acute on chronic diastolic (congestive) heart failure; J96.92 Respiratory failure, unspecified with hypercapnia; J96.91 Respiratory failure, unspecified with hypoxia; J44.1 Chronic obstructive pulmonary disease with (acute) exacerbation; F10.10 Alcohol abuse, uncomplicated; F17.210 Nicotine dependence, cigarettes, uncomplicated; I27.20 Pulmonary hypertension, unspecified; Z99.81 Dependence on supplemental oxygen; Z11.52 Encounter for screening for COVID-19
CPT/HCPCS: 36415; 36600; 71045; 71275; 80048; 80051; 80053; 80307; 81003; 82330; 82803; 82805; 83605; 83735; 83880; 84484; 85025; 85378; 87635; 87804; 93005; 93306; 93970; 94640; 94660; 94760; 96365; 96372; 96375; 99291; J1100; J1650; J1940; J1956; J2060; J2270; J2360; J2920; J7626; Q9967

== ENCOUNTER → 2023-07-25 13:34 | Outpatient (BNVA) | payer MEDICARE, SELFPAY | PROVIDERS: PCP Family Medicine; Referring Provider Internal Medicine; Visit Provider Internal Medicine | DX: R07.9 Chest pain, unspecified (principal) | CPT/HCPCS: 93005; 99204 ==

== ENCOUNTER 2023-10-05 08:05 | Outpatient (CLI) | payer MEDICARE, SELFPAY ==
--- NOTE | 2023-10-05 | ECG_ITS ---
[facility] Test Date: 2023-10-05 Pat Name: Nadine Herrera Department: Room: Gender: Female Trolley Operator: Maday Cook : 1960 Requested By: Scott Cruz Order Number: [id number] Patito MD: Scott Cruz M.D. Interpretive Statements NAME OF STUDY: LEXISCAN SESTAMIBI STRESS TEST INDICATION: [Chest Pain; Shortness of Breath, ] Procedure: At the baseline, the blood pressure was 114/51 mmHg with a heart rate of 72 bpm. The electrocardiogram showed normal sinus rhythm, normal axis with normal ST and T's. The Lexiscan was infused over a period of 20 seconds. A total of 0.4 mg of Lexiscan was infused. The stress phase was continued for a total of 5 minutes. Heart rate was at the end of stress phase was 81 bpm and a blood pressure of 135/72 mmHg. The EKG at the peak infusion revealed normal sinus rhythm with no significant ST-T wave changes. Sestamibi was injected 20 seconds after the Lexiscan infusion. Blood pressure at the end of recovery phase was 121/70 mmHg with a heart rate of 76 bpm. Conclusion: 1. Normal EKG response to Lexiscan infusion 2. No Lexiscan induced chest pain or cardiac arrhythmia. 3. Normal blood pressure and heart rate response. 4. Sestamibi/sestamibi perfusion scan pending; see separate report. Electronically Signed On 10-13-2023 9:23:44 CDT by Scott Cruz M.D. [email or web address]
--- NOTE | 2023-10-05 08:31 | NMCV_ITS ---
NM vernon perf SPECT r/s* [id number] Nadine Herrera Age: 63 Gender: F : 1960 Exam Date: 10/05/2023 09:38 Ordering Phys: Scott Cruz M.D ([email or web address]) Technologist: JADEN Pendleton Exam Location: [facility] Indications: CP, SOB STRESS TEST Please see separate stress test report in [facility] for full findings IMAGE PROTOCOL Rest/Stress 1 Lexiscan Day Radiopharmaceutical Dose (mCi) Administration Site Administered by Rest: Tc-99m 10.7 IV JADEN Pendleton Sestamibi Stress:Tc-99m 32.9 IV JADEN Pendleton Sestamibi Rest: 05-Oct-2023 60 Discovery 630 Stress: 05-Oct-2023 30 Discovery 630 0.4mg Lexiscan. Supine position only as patient was unable to lay prone. SPECT RESULTS Technical Quality: Good Raw Data Analysis: Breast attenuation Image Corrections: No attenuation or motion correction applied Summed Stress Score: 2 Summed Rest Score: 7 Summed Difference Score: 1 PERFUSION FINDINGS Medium sized area of partially reversible perfusion defect seen in inferior wall. This is consistent with medium sized area of prior infarct with some jenn-infarct ischemia in the inferior wall. FUNCTIONAL RESULTS (calculated via Gated SPECT) Stress Image LV EF (%): 72 Stress EDV (mL):97 TID: 1.33 Stress ESV (mL):27 FUNCTIONAL FINDINGS: LV systolic function is normal IMPRESSIONS 1. Medium sized area of prior infarct with small area of jenn-infarct ischemia seen in the inferior wall. 2. LV systolic function is normal 3. TID ratio is elevated. This may represent subendocardial ischemia Scott Cruz MD (Electronically Signed) Final Date: 05 October 2023 13:31 S
[2023-10-05 08:33] VITALS: BMI 38.4
[2023-10-05] MEDS: regadenoson 0.4 Mg/5 ml Syringe IVP (10:17)
[2023-10-05] MEDS: aminophylline 25 mg/mL SDV 10 mL IVP (10:30)
[2023-10-05 10:31] VITALS: BP 121/70; PULSE 74
== END 2023-10-05 08:06 | disposition home or self-care (01) ==
PROVIDERS: PCP Family Medicine; Visit Provider Internal Medicine
DX: R07.9 Chest pain, unspecified (principal); R06.02 Shortness of breath; R94.39 Abnormal result of other cardiovascular function study
CPT/HCPCS: 36415; 78452; 93017; 96374; 96375; A9500; J0280; J2785

== ENCOUNTER → 2023-11-06 10:38 | Outpatient (BNVA) | payer MEDICARE, SELFPAY | PROVIDERS: PCP Family Medicine; Visit Provider Internal Medicine | DX: I50.9 Heart failure, unspecified (principal); R06.09 Other forms of dyspnea; R94.39 Abnormal result of other cardiovascular function study; Z87.891 Personal history of nicotine dependence | CPT/HCPCS: 99214 ==

== ENCOUNTER 2023-11-27 08:47 | Outpatient (CLI) | payer MEDICARE, SELFPAY ==
[2023-11-27] VITALS (49 sets, daily range): BP systolic 113–184; BP diastolic 18–96; PULSE 70–109; RESP 13–41; TEMP 37.2; O2SAT 86–92; BMI 38.5
--- NOTE | 2023-11-27 09:00 | XACV_ITS ---
Exam Room: 2 Ht: 157 cm Wt: 96 kg BSA: 2.10 m2 Gender: Female : 1960 Any Known Allergies: Other Exam Priority: Routine Procedure(s): Procedure Description: Diagnostic procedure Procedure Description: Left Heart Catheterization Procedure Description: Left ventriculography Procedure Description: Coronary Angiography Diagnostic Cath Status: Elective Diagnostic Findings * INDICATION: 63-year-old woman with past medical history of COPD who has been having worsening shortness of breath. She had stress test that showed abnormality with RCA territory prior infarct with jenn-infarct ischemia and elevated TID ratio. Plan for coronary angiogram with possible PCI. * No significant disease noted in the Left Main, Left Anterior Descending, Right, or Circumflex coronary arteries. * Coronary angiography shows left dominance. Conclusions 1. No significant disease noted in the Left Main, Left Anterior Descending, Right, or Circumflex coronary arteries. 2. Normal left ventricular systolic function. Ejection fraction of 60%. Recommendations * Aggressive risk factor modification. * Outpatient cardiology follow up in 2-4 weeks. Interventional RX Recommendation: medical therapy and/or counseling Diagnostic RX Recommendation: medical therapy and/or counseling Ventriculography Ejection Fraction: 60.0 % Pressures Phase:Rest AO : 99 / 60 ( 79 ) @ 12:25:00 PM 153 / 72 ( 105 ) @ 12:34:00 PM 155 / 73 ( 107 ) @ 12:34:00 PM LV : 144 / -4 / 20 @ 12:33:00 PM 148 / 2 / 22 @ 12:34:00 PM 142 / 1 / 24 @ 12:34:00 PM Valves Phase:DefaultPhase AV : 0.0 @ 11:48:06 AM 0.0 @ 11:48:06 AM AV Mean Gradient: 0.0 @ 11:48:06 AM Clinical Evaluation EBL: 5mL-10mL Procedural Details Pre-Procedure Time Out. Identified patient by full name and date of as verbalized by the patient/guarantor. Does the consent match the physician's order: Yes. Accurate & Complete Informed Consent: Yes. Inpatient/Outpatient History & Physical on Chart: Yes. If H&P is completed, is and addenduem needed: No; If yes, is the addendum complete: N/A. Relevant Radiology Images available: Yes. Visualize and Verify Site with Patient/Guarantor: N/A. Pre-op teaching completed and patient verbalized understanding. The risks, benefits, and alternatives of sedation and/or procedure were discussed by physician. The patient agrees to continue. Procedure started. [facility] Clinical Fraility Score: 4: Vulnerable. Therapeutic Recreation Leader Indications: GUTIERREZ, Abnormal Stress Test. Chest Pain Symptom Assessment: Typical Angina Symptoms. Cardiovascular Instability: No. Baseline sample Acquired. HR: 70 BPM. Correct patient, site and procedure confirmed by cath team. PERRLA. Strong, equal hand manager icu bilaterally. Lungs clear x 5 lobes. IV Site on Arrival: 20 gauge in the right forearm. IV Fluids: 0.9% NaCl at KVO. 0 mL infused prior to labor custodian. Pre Procedural Pulses: bilateral dorsalis pedis was 1+. Pre Procedural Pulses: bilateral posterior tibial was Doppled. Pre Procedural Pulses: bilateral radial was 3+. Oxygen started at 2liters/min via nasal canula. right groin was prepped with chloroprep then draped in the usual sterile fashion. right radial was prepped with chloroprep then draped in the usual sterile fashion. Physician notified. Baseline sample Acquired. HR: 72 BPM. Patient's family in CPRU room 4. Dr. Cruz will update at the completion of the procedure. Equipment: 6F - Radial. Cardiac Cath Pack. ACIST Manifold Kit Model BT 2000. Heparinized Saline (2 units/mL), 1000 mL bag. Physician arrived. Physician scrubbed in. Immediate Pre-Procedure Time Out. Correct Patient: Yes; Correct Procedure: Yes; Correct Site: Yes; Correct Patient Position: Yes; Correct Supplies: Yes; Dried Flammable Prep: Yes; Blood Products Available: N/A;. Lidocaine 1% infiltrated to the right radial. Arterial access obtained. Unable to advance wire. Wire and needle out. Dr. Cruz holding manual pressure. Arterial access obtained. Unable to advance wire. Wire and needle out. Dr. Cruz holding manual pressure. An attempt to gain access to the right radial artery was unsuccessful. Manual pressure was held as needed to stop the bleeding. Lidocaine 1% infiltrated to the right groin. Arterial access obtained with micropuncture set. A 5 saudi ar[place]ian JL4 catheter in over wire. Multiple views taken of left coronary artery. Catheter removed over the standard wire. A 5 [place]abian JR4 catheter in over wire. Multiple views taken of right coronary artery. Catheter removed over the standard wire. A 5 [place]abian Angled Pig catheter in over wire. EDP Sample taken: LV 144/-5,20; HR: 77 BPM; SpO2: 91%. LV gram performed in SOTO @ 10 mL/second for a total of 30 mL. EDP Sample taken: LV 148/2,22; HR: 77 BPM; SpO2: 91%. Pullback taken: LV 142/1,24; AO 153/72(105); Mean: 0mmHg, Peak to Peak: 0mmHg, SEP: 7sec/min; HR: 76 BPM; SpO2: 92%. Catheter removed over the standard wire. A Right femoral angiogram was performed to determine safe placement of closure device. A Mynx was successful obtaining hemostatsis at the Right Femoral artery insertion site. Lot # [id number]. Exp. . Post Procedure: Pulses reassessed and unchanged. PERRLA. Strong, equal hand manager icu bilaterally. No VTE prophylaxis required. Medication's Wasted: Lidocaine 1% = 8 mL. Medication's Wasted: Nitro = 50 mg. Medication's Wasted: Heparin = 1000 Units. Total IV fluids: 50 mL. Post-op diagnosis: non-obstructive CAD. Complications: none. Estimated blood loss: 5mL-10mL. Responsiveness - Normal response to verbal stimuli; alert and oriented, PERRLA. Airway - Unaffected, no intervention required; spontaneous ventilation. Circulation: W/N/L, pulses unchanged. Nausea/Vomiting: No. Medication's Wasted: Other = Fentanyl [address] Cruz scrubbed out. Procedure completed. Patient transferred by bed to CPRU. Vital chart was stopped. Access Site Site: Right Femoral artery Sheath Size: 5 Fr Hemostasis Method: Mynx Hemostasis Success: Successful Procedure Medications Start: 11:11 AM Stop: 11:11 AM Medication: Versed Amount: 1 mg Route: I.V. Start: 11:11 AM Stop: 11:11 AM Medication: Fentanyl Amount: 25 mcg Route: I.V. Start: 11:12 AM Stop: 11:12 AM Medication: Versed Amount: 1 mg Route: I.V. Start: 11:12 AM Stop: 11:12 AM Medication: Fentanyl Amount: 25 mcg Route: I.V. I, the attending physician, have reviewed and verified all procedure medications. Yes, all medications given per verbal order History/Risk Factors Hypertension: No Dyslipidemia: No Peripheral Arterial Disease (PAD): No Myocardial Infarction ([place]): No Obesity: Yes Renal Disease: No Tobacco Use: Former Prior Interventions PCI: No CABG: No Valve Surgery: No Report Signatures Finalized by Scott Cruz MD on 12/01/2023 06:24 PM
[2023-11-27] MEDS: diphenhydrAMINE 50 mg Capsule PO (09:19)
[2023-11-27 09:27] LABS: Basophils # 0.1 10^3/uL (0.0-0.1); Basophils % 0.6 %; Eosinophils # 0.2 10^3/uL (0.0-0.8); Eosinophils % 1.3 %; Hematocrit 54.5 % (36-47); Lymphocytes # 1.8 10^3/uL (0.8-4.8); Lymphocytes % 15.1 %; Mean Corpuscular HGB Conc 29.9 g/dL (30-55); Mean Corpuscular Volume 90.4 fl (85-98); Mean Platelet Volume 9.6 fL (7.4-10.4); Monocytes # 0.9 10^3/uL (0.2-0.9); Monocytes % 7.4 %; Neutrophils # 8.91 10^3/uL (1.8-7.7); Neutrophils % 74.7 %; Nucleated Red Blood Cells % 0 %; Platelet Count 406 10^3/cmm (157-399); Red Blood Count 6.03 10^6/uL (3.85-5.65); Red Cell Distribution Width 14.6 % (12.1-15.1); White Blood Count 11.92 10^3/uL (3.29-11.43)
[2023-11-27 09:30] LABS: Anion Gap 13.4 (5-19); Blood Urea Nitrogen 16 mg/dL (8-23); Calcium 8.8 mg/dL (8.5-10.5); Carbon Dioxide 31 mmol/L (22-29); Chloride 98 mmol/L (98-107); Glomerular Filtration Rate 161.2 mL/min (90-130); Glucose 120 mg/dL (65-115); Osmolality Calculated 288 mOsm/kg (285-295); Potassium 4.4 mmol/L (3.5-5.1); Sodium 138 mmol/L (136-145)
[2023-11-27 09:39] LABS: Creatinine Clr Calc Pharmacy 155.3147
--- NOTE | 2023-11-27 11:07 | P.HP_ITS ---
Same Day Surgery H&P Indication for Procedure/HPI DATE OF PROCEDURE: November 27, 2023 CHIEF COMPLAINT/INDICATIONFOR SURGICAL PROCEDURE: Dyspnea on exertion/shortness of breath/abnormal stress test. PREOP DIAGNOSIS: Dyspnea on exertion/abnormal stress test PLANNED PROCEDURE: Operation Date: 11/27/23 10:00 Proposed Procedures p Cardiac Catheterization - [facility] w/wo LV & Coros(Left) - Scott Cruz M.D Possible percutaneous coronary intervention. 63-year-old woman with past medical history of COPD who has been having wors ening shortness of breath. She had stress test that showed abnormality with RCA territory prior infarct with jenn-infarct ischemia and elevated TID ratio. Plan for coronary angiogram with possible PCI. Medications/Allergies* Home Medications Medication Instructions Recorded Confirmed Type fluticasone propionate 50 1 spray intranasal DAILY PRN 02/21/22 11/27/23 History mcg/actuation nasal Allergy Symptoms spray,suspension (Flonase Allergy Relief) lisinopril 10 mg tablet 10 mg PO QAM 02/21/22 11/27/23 History metoprolol succinate 100 mg 100 mg PO QAM 02/21/22 11/27/23 History tablet,extended release 24 hr acetaminophen 650 mg 650 - 1,300 mg PO Q6H PRN Pain 05/12/23 11/27/23 History tablet,extended release budesonide 160 mcg-glycopyr 9 2 inh inhalation BID PRN unknown 05/12/23 11/27/23 History mcg-formot 4.8 mcg/actuation HFA inhaler (Breztri Aerosphere) Allergies/Adverse Reactions Allergy/AdvReac Type Severity Reaction Status Date / Time strawberry Allergy Unknown Verified 11/27/23 08:57 sea salt Allergy Unknown Uncoded 11/27/23 08:57 Current Medications: Generic Name Dose Route Start Last Admin Trade Name Freq PRN Reason Stop Dose Admin Sodium Chloride 1,000 mls @ 50 mls/hr 11/27/23 09:00 11/27/23 09:19 Sodium Chloride 0.9% IV 11/28/23 04:59 Not Given .Q20H ONE Pertinent History/Comorbid Conditions* Medical History (Updated 11/06/23 @ 11:05 by Scott Cruz M.D) Alcohol abuse with alcohol-induced disorder Heart failure Respiratory failure with hypoxia and hypercapnia Social History Smoking and tobacco/nicotine status: former use of tobacco/nicotine Pertinent Exam Findings alert, oriented x 3, clear to auscultation bilaterally and regular rate & rhythm Conscious Sedation Assessment PATIENT ASSESSED PRIOR TO SEDATION, WITH NO CHANGE NOTED: Yes AIRWAY EVAL/ANESTHESIA PLAN: normal airway, ASA IV, Local Anesthesia, Risks, benefits & alternatives of sedation and/or procedure discussed and Patient agrees to continue as planned ADDITIONAL INFORMATION: Moderate sedation Recommendations Surgery/Procedure today (Left heart cath with possible PCI.) Coding Level of Care Code Acute Code for [facility] [place]
--- NOTE | 2023-11-27 16:28 | PC.NURSE ---
Patient received discharge orders. All IVs removed. Patient activity restrictions educated to patient who verbalized understanding. Right groin and wrist site are clean dry and intact. No s/s of bleeding or hematoma. Patient was taken to main exit via w/c at 1628 with family. All patient belongings sent with patient.
== END 2023-11-27 16:28 | disposition home or self-care (01) ==
LOC: CCL 08:58 → ICU 12:09
PROVIDERS: PCP Family Medicine; Visit Provider Internal Medicine
DX: R94.39 Abnormal result of other cardiovascular function study (principal); J44.9 Chronic obstructive pulmonary disease, unspecified; E66.9 Obesity, unspecified; Z68.38 Body mass index [BMI] 38.0-38.9, adult; Z87.891 Personal history of nicotine dependence
CPT/HCPCS: 36415; 80048; 85025; 93458; 99152; 99153; C1760; C1769; C1887; C1894; G0269; J1644; J2250; J3010; J3490; J7030; Q0163; Q9967

== ENCOUNTER 2023-12-10 08:52 | Outpatient (CLI) | payer MEDICARE, SELFPAY | END 2023-12-10 08:53 | disposition home or self-care (01) | LOC: LAB 08:54 | PROVIDERS: PCP Family Medicine; Visit Provider Internal Medicine | DX: I50.9 Heart failure, unspecified (principal); R06.09 Other forms of dyspnea; G89.18 Other acute postprocedural pain; Z87.891 Personal history of nicotine dependence | CPT/HCPCS: 36415; 80048; 99214 ==

== ENCOUNTER 2024-10-16 19:52 | Inpatient (IN) | payer MEDICARE, SELFPAY ==
[2024-10-16] VITALS (7 sets, daily range): BP systolic 120–142; BP diastolic 62–80; PULSE 95–105; RESP 17–20; TEMP 37; O2SAT 67–92; BMI 39.3
--- OUTSIDE RECORDS SUMMARY | 2024-10-16 19:59 | XMS_ITS | Clinical Summary ---
Author Organization [facility] Address [address] العلي: Epic Prelude ADT VINAYAK MENDOZA [id number] Care Team Providers Care Environmental Monitoring Technician Name Role Phone Unavailable Primary Care Provider Unavailabl e Encounters Date Type Department Care Team Description 09/03/2024 Abstract [facility] Information Management [place] [address] [place] [id number] Provider, Abstract from Last 3 Months Social History Tobacco Use Types Packs/Day Years Used Date Smoking Tobacco: Never Assessed Comments Unknown Sex and Gender Information Value Date Recorded Sex Assigned at Not on file Legal Sex Female 3:47 PM CDT Gender Identity Not on file Sexual Orientation Not on file Plan of Treatment Health Maintenance Due Date Last Done Comments DTAP/TDAP/TD VACCINES (1 - Tdap) 02/02/1979 HPV/Cotest (21-29) 02/02/1981 CERVICAL CANCER SCREENING 02/02/1990 HPV/Cotest (30-65) 02/02/1990 PAP SMEAR 02/02/1990 BREAST CANCER SCREENING 2000 COLORECTAL SCREENING 02/02/2005 Colorectal Cancer Screening 02/02/2005 FIT-DNA Q 3 years 02/02/2005 FIT/FOBT Q 1 year 02/02/2005 Flex Sig/CT Colonography Q 5 years 02/02/2005 ZOSTER VACCINE (1 of 2) 02/02/2010 INFLUENZA VACCINE (#1) 2024 RSV VACCINE (60+ or ) (1 - 1-dose 75+ series) 02/02/2035
--- NOTE | 2024-10-16 20:00 | ECG_ITS ---
[facility] Date: 2024-[facility]16 Pat Name: Nadine Herrera Department: Room: Gender: Female Osteopathic Resident: : 1960 Requested By: Jw Lopez Order Number: [id number] Caputo MD: Scott Cruz M.D. Measurements Intervals [place] Rate: 76 P: 41 PA: 133 QRS: 52 QRSD: 82 T: 79 QT: 351 QTc: 396 Interpretive Statements SINUS RHYTHM Compared to ECG 07/25/2023 13:41:46 Early repolarization no longer present ST (T wave) deviation no longer present Electronically Signed On 10-17-2024 22:40:42 CDT by Scott Cruz M.D. [id number]
--- NOTE | 2024-10-16 20:23 | CTR_ITS ---
PROCEDURE INFORMATION: Exam: CTA Chest With Contrast Exam date and time: 10/16/2024 9:53 PM Age: 64 years old Clinical indication: Cough and shortness of breath; Cough with SOB and hypoxia. History of copd. ; Additional info: High suspicion for pe TECHNIQUE: Imaging protocol: Computed tomographic angiography of the chest with contrast. Exam focused on the arteries. 3D rendering (Not supervised by radiologist): MIP and/or 3D reconstructed images were created by the technologist. Radiation optimization: All CT scans at this facility use at least one of these dose optimization techniques: automated exposure control; mA and/or kV adjustment per patient size (includes targeted exams where dose is matched to clinical indication); or iterative reconstruction. Contrast material: OMNI 350; Contrast volume: 100 ml; Contrast route: INTRAVENOUS (IV); COMPARISON: CT angio chest PE protcl [id number] 05/15/2023 2:46 PM RADIATION DOSE METRICS: Total DLP (mGy-cm): 498.38 FINDINGS: Pulmonary arteries: No definite acute pulmonary embolism or right heart strain. Aorta: Aortic and coronary atherosclerosis. Lungs: Multifocal airspace opacity at the lung base, nonspecific although concerning for infectious infiltrate with other etiologies not excluded. Pleural spaces: Unremarkable. No pneumothorax. No pleural effusion. Heart: Unremarkable. No cardiomegaly. No pericardial effusion. Lymph nodes: Unremarkable. No enlarged lymph nodes. Bones/joints: Probable old left-sided rib fractures. Soft tissues: Unremarkable. CT/CT angio chest PE protcl [id number] IMPRESSION: 1. No definite acute pulmonary embolism or right heart strain. 2. Aortic and coronary atherosclerosis. 3. Multifocal airspace opacity at the bilateral lung bases, nonspecific although concerning for infectious infiltrate with other etiologies not excluded.
--- NOTE | 2024-10-16 20:23 | XRR_ITS ---
PROCEDURE INFORMATION: Exam: XR Chest Exam date and time: 10/16/2024 8:24 PM Age: 64 years old Clinical indication: Pain; Chest pressure; Additional info: Chest pain TECHNIQUE: Imaging protocol: Radiologic exam of the chest. Views: 1 view. COMPARISON: CT angio chest PE protcl [id number] 05/15/2023 2:46 PM FINDINGS: Lungs: Patchy opacity involving the right mid and lower lung, nonspecific although concerning for edema or infection. Pleural spaces: Unremarkable. No pleural effusion. No pneumothorax. Heart/Mediastinum: Unremarkable. No cardiomegaly. Probable aortic atherosclerosis. Bones/joints: Unremarkable. XR/XR chest 1V portable [id number] IMPRESSION: Patchy opacity involving the right mid and lower lung, nonspecific although concerning for edema or infection.
[2024-10-16 20:36] LABS: Hematocrit 44.6 % (36-47); Hemoglobin 12.50 g/dL (11.27-16.99); Mean Corpuscular HGB Conc 28.0 g/dL (30-55); Mean Corpuscular Hemoglobin 26.1 pg (27-33); Mean Corpuscular Volume 93.1 fl (85-98); Nucleated Red Blood Cells % 0 %; Platelet Count 478 10^3/cmm (157-399); Red Blood Count 4.79 10^6/uL (3.85-5.65); White Blood Count 13.75 10^3/uL (3.29-11.43)
[2024-10-16 20:40] LABS: INR 0.95 (0.8-1.2); Prothrombin Time 13.30 SECONDS (12.1-14.9)
[2024-10-16 20:41] LABS: Partial Thromboplastin Time 27.1 SECONDS (23.9-36.7)
[2024-10-16 20:45] LABS: Lactic Sepsis W/Reflex 1.6 mmol/L (0.5-2.2)
[2024-10-16 20:50] LABS: Troponin(5th) Baseline 12 ng/L (0-10)
[2024-10-16 20:59] LABS: Alanine Aminotransferase 9 U/L (0-33); Albumin Level 3.6 g/dL (3.5-5.2); Alkaline Phosphatase 115 U/L (35-105); Anion Gap 11.4 (5-19); Aspartate Amino Transferase 11 U/L (0-32); Blood Urea Nitrogen 9 mg/dL (8-23); Calcium 9.4 mg/dL (8.5-10.5); Chloride 95 mmol/L (98-107); Creatinine Clr Calc Pharmacy 154.9252; Globulin 2.8 g/dL (1.3-4.6); Glucose 133 mg/dL (65-115); NT Pro B Type Natriuretic Pept 264 pg/mL (0-125); Osmolality Calculated 299 mOsm/kg (285-295); Potassium 4.4 mmol/L (3.5-5.1); Sodium 144 mmol/L (136-145); Total Protein 6.4 g/dL (6.6-8.7)
[2024-10-16 21:04] LABS: Carbon Dioxide 42 mmol/L (22-29)
[2024-10-16] MEDS: LORazepam 1 MG/0.5 ML injection IVP (21:37)
[2024-10-16] MEDS: morphine 4 mg/mL SDV 1 mL 6 MG IVP (21:37)
[2024-10-16 21:50] LABS: ABG PCO2 85.9 mmHg (35-45); ABG PH Result 7.32 (7.35-7.45); Arterial Blood Gas Hematocrit 40.5 % (37-47); Blood Gas Allen Test Pos; Blood Gas LPM 15.0 %; Blood Gas Operator Identificat gerca; Blood Gas Sample Site Brachial, right; Blood Gas Sample Type Arterial; HCO3 ABG 44.0 mmol/L (22-26); PO2 ABG 68.3 mmHg (80.0-100.0); PO2 FiO2 Ratio Arterial Blood 75
[2024-10-16] MEDS: iohexol 350 mg/mL 500 mL Btl (per mL) IV (21:55)
[2024-10-16] MEDS: cefepime 1,000 mg SDV 1000 MG IVP (22:21)
[2024-10-16 22:40] LABS: Troponin 5 2HR 11.39 ng/L (0-10)
[2024-10-16 22:52] LABS: Troponin 5 2HR Delta -0.61 ABS# (0-10)
[2024-10-16] MEDS: methylPREDNISolone sod succ 125 mg/2 mL INJ IVP (23:58)
[2024-10-17] VITALS (107 sets, daily range): BP systolic 104–168; BP diastolic 51–110; PULSE 66–102; RESP 14–40; TEMP 36.2–36.6; O2SAT 80–96
--- NOTE | 2024-10-17 00:08 | PM.HP ---
Providers/Chief Complaint Admitting Physician: YASMEEN SLATER DO--patient seen and evaluated before 12 midnight on 10/16/2024 Primary Care Provider: Nathan Schultz Chief Complaint: SOB History of Present Illness Nadine Herrera is a 64 year old female who looks older than 70, morbidly obese, truncal obesity with a history of COPD, obstructive sleep apnea and on chronic home oxygen at 6 L pulse oxing in the 70s at home all the time according to the patient. Patient had had a boarding of much shortness of breath to where she could not continue staying at home she called the rescue squad to take her to the emergency room. Upon arriving in the emergency room patient is on the 100% non rebreather mask and pulse oxing at 80. Lab studies were done for ABG CMP CBC Initial ABG today in the emergency room was 7.32/85.9 pCO2/68.3 PO 2/90% FiO2/44 bicarb Chest x-ray significant for right lower lobe pneumonia CT was done shows bilateral patchy infiltrates Patient is full code and will be going to ICU on BiPAP she is fully awake and alert but very anxious. Review of Systems Narrative: Patient is overly anxious having a sense of impending doom system review upon 10 organ review were significant for respiratory system failure Medications/Allergies Home Medications ?Medication ?Instructions ?Recorded ?Confirmed ?Last Taken ?Type fluticasone propionate 50 1 spray intranasal DAILY PRN 02/21/22 12/10/23 Unknown History mcg/actuation nasal Allergy Symptoms spray,suspension (Flonase Allergy Relief) lisinopril 10 mg tablet 10 mg PO QAM 02/21/22 12/10/23 11/27/23 07:00 History metoprolol succinate 100 mg 100 mg PO QAM 02/21/22 12/10/23 11/27/23 07:00 History tablet,extended release 24 hr acetaminophen 650 mg 650 - 1,300 mg PO Q6H PRN Pain 05/12/23 12/10/23 Unknown History tablet,extended release budesonide 160 mcg-glycopyr 9 2 inh inhalation BID PRN unknown 05/12/23 12/10/23 11/26/23 07:00 History mcg-formot 4.8 mcg/actuation HFA inhaler (Breztri Aerosphere) aspirin 81 mg tablet,delayed 81 mg PO DAILY #90 tabs 11/06/23 12/10/23 11/27/23 07:00 Rx release Allergies Allergy/AdvReac Type Severity Reaction Status Date / Time strawberry Allergy Unknown Verified 12/10/23 08:26 sea salt Allergy Unknown Uncoded 12/10/23 08:26 PFSH Acute PFSH: Medical History Alcohol abuse with alcohol-induced disorder Heart failure Respiratory failure with hypoxia and hypercapnia Social History Smoking and tobacco/nicotine status: former use of tobacco/nicotine Vitals/I&O/Wt Last Vital Signs Temp 98.6 F 10/16/24 19:53 Pulse 96 10/17/24 00:02 Resp 22 H 10/17/24 00:02 BP 142/66 10/16/24 23:42 Pulse Ox 88 L 10/17/24 00:02 O2 Del Method Heated High Flow 10/17/24 00:02 O2 Flow Rate 60 10/17/24 00:02 FiO2 100 10/17/24 00:02 Weight last 48 hrs Weight 97.522 kg Physical Exam Narrative: Patient is short of breath and overwhelmingly anxious with a sense of impending doom she said. Patient is with COPD exacerbation with underlining pneumonia and obstructive sleep apnea with much PCO2 elevation to 85.9 at presentation HEENT normocephalic/atraumatic neck neck is supple cardiovascular heart rate is regular lungs are pretty much clear abdomen soft nontender nondistended unremarkable extremities are intact no edema has good pulses neurology no focality but much higher level of anxiety that she cannot focus to answer a simple question. Patient does not want to have a BiPAP on much talk on BiPAP and on CODE STATUS patient wants to be full code. Data 10/16/24 20:08 10/16/24 20:08 Micro: Microbiology 10/16/24 20:08 Blood Culture - Preliminary Blood SPECIMEN COLLECTED 10/16/24 20:08 Blood Culture - Preliminary Blood SPECIMEN COLLECTED A&P Assessment and plan 1. Acute hypoxic on chronic hypercapnic respiratory failure: 2. Pneumonia: 3. COPD exacerbation: 4. Dyspnea on exertion: 5. Acute anxiety: Plan: #1 Acute on chronic hypoxic hypercapnic respiratory failure - Admit to ICU on full code currently on BiPAP and high risks of not using BiPAP because of claustrophobia - Antibiotics initiated from the emergency room with cefepime - I followed up with antibiotics of ceftriaxone and azithromycin - Steroid given in the emergency room at 125 mg IV now and I followed up with 60 mg IV every 6 - DuoNeb every 4 hours while awake/respiratory assess and treat - Supplemental oxygen at 90% #2 COPD exacerbation - Continue care as per above with antibiotics for associated bronchitis and also for pneumonia - Continue nebulizing treatment and steroid therapy per order #3 Pneumonia bilateral basilar -Continue to treat as community-acquired pneumonia with ceftriaxone and azithromycin - Continue nebulizing treatment - Steroid therapy for associated bronchospasm and scattered adventitious breath sounds - Continues supplemental oxygen for this patient #4 Chronic home oxygen at 6 L with persistent hypoxemia in the 70s at home - Continue supplemental oxygen and call rates with patient level of infection with more respiratory failure #5 Acute on chronic dyspnea on exertion - This is more so due to underlining pneumonia - Treat aggressively with antibiotics because of the underlining pneumonia #6 Acute anxiety disorder with a feeling of impending doom - Will initiate nonaddicting antianxiety medication BuSpar at 5 mg p.o. 3 times daily #7 GI and DVT prophylaxis in place PDMP PDMP Reviewed: Last Reviewed 10/17/24 00:39 by Yasmeen Slater MD Attestations Medical Necessity Statement*: Patient is with hypoxic hypercapnic respiratory failure with a PCO2 as high as 85.9 on 90% oxygen with associated right lower lobe pneumonia on x-ray and bilateral pneumonia on CT scan needs inpatient care for at least 2 midnights. Patient heading to ICU to optimize care. Coding Level of Care Code 20836 Diagnoses Acute hypoxic on chronic hypercapnic respiratory failure J96.01; J96.12 Pneumonia J18.9 COPD exacerbation J44.1 Dyspnea on exertion R06.09 Acute anxiety F41.9 Time Spent (min) 70
[2024-10-17] MEDS: cefTRIAXone 2,000 mg SDV 2000 MG IVP (00:30)
--- NOTE | 2024-10-17 01:44 | ED_ITS ---
HPI - SOB/Dyspnea 2 General: Chief Complaint: Shortness of Breath/Dyspnea Stated Complaint: SOB Time Seen by Provider: 10/16/24 20:06 History of Present Illness: HPI Narrative: 64 yo F with Hx of COPD on baseline 6 L nasal cannula presented via EMS for acute SOB with right anterior chest and shoulder pain. Pt reports requiring more oxygen than usual. On arrival, SpO2 was ~83%; later ~90% on 15 L NRB. EMS administered albuterol, ipratropium/albuterol (DuoNeb), Solu-Medrol 125 mg, and aspirin 324 mg. Prehospital glucose 123. Pain currently 7/10, described as pressure-like in the right anterior chest without radiation. Pt denies known prior heart disease, ND, or CHF. No prior DVT/PE reported. Related Data Home Medications ?Medication ?Instructions ?Recorded ?Confirmed fluticasone propionate 50 1 spray intranasal DAILY PRN 02/21/22 12/10/23 mcg/actuation nasal Allergy Symptoms spray,suspension (Flonase Allergy Relief) lisinopril 10 mg tablet 10 mg PO QAM 02/21/22 metoprolol succinate 100 mg 100 mg PO QAM 02/21/22 tablet,extended release 24 hr acetaminophen 650 mg 650 - 1,300 mg PO Q6H PRN Pa in 05/12/23 12/10/23 tablet,extended release budesonide 160 mcg-glycopyr 9 2 inh inhalation BID PRN unknown 05/12/23 12/10/23 mcg-formot 4.8 mcg/actuation HFA inhaler (Breztri Aerosphere) Previous Rx's ?Medication ?Instructions ?Recorded aspirin 81 mg tablet,delayed 81 mg PO DAILY #90 tabs 0 11/06/23 release Allergies Allergy/AdvReac Type Severity Reaction Status Date / Time strawberry Allergy Unknown Verified 12/10/23 08:26 sea salt Allergy Unknown Uncoded 12/10/23 08:26 [facility] ED 2 [facility]: Medical History (Updated 10/17/24 @ 00:41 by Meri Belcher MD) Alcohol abuse with alcohol-induced disorder Heart failure Respiratory failure with hypoxia and hypercapnia Social History Smoking and tobacco/nicotine status: former use of tobacco/nicotine Physical Exam 2 Const: COMMON NORMALS: no acute distress, patient oriented x3 and alert HENMT: COMMON NORMALS: normocephalic and atraumatic HEAD & SCALP: n ormocephalic and atraumatic Eye: COMMON NORMALS: Equal, round and reactive pupils present, EOMs intact bilaterally and no scleral icterus PUPIL: Yes Equal, round and reactive pupils present Resp: OTHER: mild wheezes in all lung garcia; deep, voluminous breaths, tachypneic. Cardio: COMMON NORMALS: regular rate, regular rhythm and No murmurs present (Cardio) RATE: regular rate RHYTHM: regular rhythm GI: COMMON NORMALS: Normal to inspection, nondistended, normoactive bowel sounds present, Soft to palpation and non-tender PALPATION: Yes Soft to palpation Neuro: COMMON NORMALS: patient oriented x3 SENSORIUM/ORIENTATION: Yes alert Skin: COMMON NORMALS: no rashes or lesions noted GENERAL SKIN EXAM: no rashes or lesions noted Course 2 Vital Signs: Vital signs: Vital Signs Temperature 98.6 F 10/16/24 19:53 Pulse Rate 94 10/17/24 01:38 Respiratory Rate 22 H 10/17/24 00:02 Blood Pressure 143/67 10/17/24 01:38 Pulse Oximetry 93 10/17/24 01:38 Oxygen Delivery Me thod Heated High Flow 10/17/24 01:38 Oxygen Flow Rate 15 10/17/24 01:38 Fraction of Inspir ed Oxygen 100 10/17/24 00:02 MDM - SOB/Dyspnea Medical Decision Making 64 yo F with COPD on 6 L baseline presents with acute SOB and right anterior chest pain. Requires increased O2; SpO2 ~83% on arrival, ~90% on 15 L NRB. Pain 7/10, pressure-like without radiation. Denies prior CAD/CHF; no prior DVT/PE known. Tachycardic and tachypneic. SpO2 low despite high-flow O2. Lungs with mild wheezes, good air movement. Chest pain not reproducible; no leg edema. High consideration for PE given sudden chest pain and SOB, profound hypoxia, relatively clear lungs, and good minute ventilation. ACS considered. COPD exacerbation also considered; prehospital Solu-Medrol and nebs may have improved wheeze. Plan for CTA chest to evaluate PE and ACS workup. Analgesia with morphine for pain. Anticipate need for hospitalization given increased O2 requirement. X-ray shows possible right lower lobe pneumonia. CTA of the chest does not show evidence of PE but does confirm multi focal airspace opacities concerning for pneumonia which matches tachycardia, hypoxia, and elevated white blood cell count elevation. She was given cefepime and admitted to the hospitalist service. Blood gas shows significantly elevated pCO2 for which I ordered BiPAP. Lab Data 10/16/24 20:08 10/16/24 20:08 Labs/Radiology: Radiology Impressions Chest CTA 10/16/24 20:23 IMPRESSION: 1. No definite acute pulmonary embolism or right heart strain. 2. Aortic and coronary atherosclerosis. 3. Multifocal airspace opacity at the bilateral lung bases, nonspecific although concerning for infectious infiltrate with other etiologies not excluded. Chest X-Ray 10/16/24 20:23 IMPRESSION: Patchy opacity involving the right mid and lower lung, nonspecific although concerning for edema or infection. Laboratory Results WBC 13.75 10^3/uL (3.29-11.43) H 10/16/24 20:08 RBC 4.79 10^6/uL (3.85-5.65) 10/16/24 20:08 Hgb 12.50 g/dL (11.27-16.99) 10/16/24 20:08 Hct 44.6 % (36-47) 10/16/24 20:08 MCV 93.1 fl (85-98) 10/16/24 20:08 MCH 26.1 pg (27-33) L 10/16/24 20:08 MCHC 28.0 g/dL (30-55) L 10/16/24 20:08 RDW 14.7 % (12.1-15.1) 10/16/24 20:08 Plt Count 478 10^3/cmm (157-399) H 10/16/24 20:08 MPV 9.4 fL (7.4-10.4) 10/16/24 20:08 Neut % (Auto) 68.3 % 10/16/24 20:08 Lymph % (Auto) 20.7 % 10/16/24 20:08 Daniels % (Auto) 9.2 % 10/16/24 20:08 Eos % (Auto) 0.7 % 10/16/24 20:08 Baso % (Auto) 0.4 % 10/16/24 20:08 Neut # (Auto) 9.39 10^3/uL (1.8-7.7) H 10/16/24 20:08 Lymph # (Auto) 2.9 10^3/uL (0.8-4.8) 10/16/24 20:08 Daniels # (Auto) 1.3 10^3/uL (0.2-0.9) H 10/16/24 20:08 Eos # (Auto) 0.1 10^3/uL (0.0-0.8) 10/16/24 20:08 Baso # (Auto) 0.1 10^3/uL (0.0-0.1) 10/16/24 20:08 Nucleated RBC % (auto) 0 % 10/16/24 20:08 Nucleated RBCs # 0.0 /100WBC 10/16/24 20:08 PT 13.30 SECONDS (12.1-14.9) 10/16/24 20:08 INR 0.95 (0.8-1.2) 10/16/24 20:08 APTT 27.1 SECONDS (23.9-36.7) 10/16/24 20:08 Specimen Type Arterial 10/16/24 21:38 Sample Site Brachial, right 10/16/24 21:38 ABG pH 7.32 (7.35-7.45) L 10/16/24 21:38 ABG pCO2 85.9 mmHg (35-45) H* 10/16/24 21:38 ABG pO2 68.3 mmHg (80.0-100.0) L 10/16/24 21:38 ABG PO2/FiO2 Ratio 75 10/16/24 21:38 ABG HCO3 44.0 mmol/L (22-26) H 10/16/24 21:38 ABG Base Excess 13.9 mmol/L (-2.0-2.0) H 10/16/24 21:38 Magnus Test Pos 10/16/24 21:38 Hematocrit 40.5 % (37-47) 10/16/24 21:38 O2 Delivery Device Nrb 10/16/24 21:38 O2 Liters/Min 15.0 % 10/16/24 21:38 FiO2 90.0 % 10/16/24 21:38 Heel Coverer ID gerca 10/16/24 21:38 Sodium 144 mmol/L (136-145) 10/16/24 20:08 Potassium 4.4 mmol/L (3.5-5.1) 10/16/24 20:08 Chloride 95 mmol/L (98-107) L 10/16/24 20:08 Carbon Dioxide 42 mmol/L (22-29) H* 10/16/24 20:08 Anion Gap 11.4 (5-19) 10/16/24 20:08 BUN 9 mg/dL (8-23) 10/16/24 20:08 Creatinine 0.4 mg/dL (0.5-0.9) L 10/16/24 20:08 GFR Calculation 160.7 mL/min (90-130) H 10/16/24 20:08 Glucose 133 mg/dL (65-115) H 10/16/24 20:08 Calculated Osmolality 299 mOsm/kg (285-295) H 10/16/24 20:08 Lactic Acid 1.6 mmol/L (0.5-2.2) 10/16/24 20:08 Calcium 9.4 mg/dL (8.5-10.5) 10/16/24 20:08 Total Bilirubin 0.2 mg/dL (0.15-1.2) 10/16/24 20:08 AST 11 U/L (0-32) 10/16/24 20:08 ALT 9 U/L (0-33) 10/16/24 20:08 Alkaline Phosphatase 115 U/L (35-105) H 10/16/24 20:08 Troponin T Baseline 12 ng/L (0-10) H 10/16/24 20:08 Troponin T 120 Minute 11.39 ng/L (0-10) H 10/16/24 22:14 Delta Troponin T -0.61 ABS# (0-10) L 10/16/24 22:14 NT-Pro-B Natriuret Pep 264 pg/mL (0-125) H 10/16/24 20:08 Total Protein 6.4 g/dL (6.6-8.7) L 10/16/24 20:08 Albumin 3.6 g/dL (3.5-5.2) 10/16/24 20:08 Globulin 2.8 g/dL (1.3-4.6) 10/16/24 20:08 All radiology interpretation(s) finalized by discharge Discharge Plan Discharge Patient Disposition: Admitted As Inpatient Admit Provider: Meri Belcher Clinical Impression: Pneumonia, Acute hypercapnic respiratory failure Condition: Stable Coding Level of Care Code ED Statistical Reporting Analyst for Maria E Cortez
--- NOTE | 2024-10-17 03:35 | PC.NURSE ---
Sputum Patient coughing persistently, expectorating thick blood tinged sputum. Upon auscultation, coarse crackles heard in bilateral lungs. Patient also complaining of right shoulder pain, stating I think it's my arthritis pain but this cough doesn't help. Dr. Belcher contacted and the following orders received: robitussin 10 ml PO Q4H PRN, toradol 15 mg PO Q6H PRN, respiratory panel, sputum culture, discontinue maintenance fluids, and insert merrill catheter.
--- NOTE | 2024-10-17 04:15 | PC.NURSE ---
Merrill catheter Patient adamantly refused merrill catheter, stating hell no, I'm not gonna let you put that thing in me. As patient moving in bed, oxygen saturation decreasing into the low 80s. Education provided to patient on breathing in through her nose and out through her mouth as well as the necessity of staying still so she does not become more short of breath. Patient verbalized understanding but needs reinforcement.
[2024-10-17 04:20] LABS: Hematocrit 42.7 % (36-47); Hemoglobin 11.80 g/dL (11.27-16.99); Mean Corpuscular HGB Conc 27.6 g/dL (30-55); Mean Corpuscular Hemoglobin 25.9 pg (27-33); Mean Corpuscular Volume 93.6 fl (85-98); Nucleated Red Blood Cells % 0 %; Platelet Count 429 10^3/cmm (157-399); Red Blood Count 4.56 10^6/uL (3.85-5.65); White Blood Count 12.60 10^3/uL (3.29-11.43)
[2024-10-17 04:39] LABS: Alanine Aminotransferase 8 U/L (0-33); Albumin Level 3.3 g/dL (3.5-5.2); Alkaline Phosphatase 110 U/L (35-105); Anion Gap 13.8 (5-19); Aspartate Amino Transferase 9 U/L (0-32); Blood Urea Nitrogen 13 mg/dL (8-23); Calcium 9.0 mg/dL (8.5-10.5); Carbon Dioxide 34 mmol/L (22-29); Chloride 95 mmol/L (98-107); Creatinine Clr Calc Pharmacy 154.9252; Globulin 2.5 g/dL (1.3-4.6); Glucose 247 mg/dL (65-115); Magnesium 1.8 mg/dL (1.7-2.3); Osmolality Calculated 294 mOsm/kg (285-295); Potassium 4.8 mmol/L (3.5-5.1); Sodium 138 mmol/L (136-145); Total Protein 5.8 g/dL (6.6-8.7)
[2024-10-17 04:42] LABS: Troponin 5 6HR 10.36 ng/L (0-10)
[2024-10-17] MEDS: guaiFENesin 100 mg/5 mL UDC 10 mL 200 MG PO (04:43)
[2024-10-17 04:54] LABS: Troponin 5 6HR Delta -1.64 ng/L (0-12)
--- NOTE | 2024-10-17 05:40 | PC.NURSE ---
Ativan Patient moving around in bed rapidly while pulling on oxygen as well as medical wires. Patient stating, I'm just so anxious. I need something to help. I can't do this. Oxygen saturation maintaining around 86%. Dr. Belcher contacted and order received for 0.5 mg ativan IVP once.
[2024-10-17] MEDS: LORazepam 1 MG/0.5 ML injection 0.5 MG IVP (05:46)
[2024-10-17 05:47] LABS: Coronavirus 229E,HKU1,NL63,OC4 Not Detected (NOT DETECT); Parainfluenza Virus Type 1 Not Detected (NOT DETECT); Parainfluenza Virus Type 2 Not Detected (NOT DETECT); Parainfluenza Virus Type 3 Not Detected (NOT DETECT); Parainfluenza Virus Type 4 Not Detected (NOT DETECT); SARS-COV-2 Not Detected (NOT DETECT)
[2024-10-17] MEDS: methylPREDNISolone sod succ 125 mg/2 mL INJ 60 MG IVP ×3 (05:51→16:48)
--- NOTE | 2024-10-17 07:31 | PHA.VACGOAL ---
Vancomycin Goal - Goal Vancomycin Goal:: 15-20 mg/L Vancomycin Indication:: Pneumonia - Therapy Current therapy:: Pip/Tazo Day of therpy:: Day []of [] . Actual body weight (kg): 213 lb 13.574 oz - Data Labs: WBC 12.60 10^3/uL (3.29-11.43) H 10/17/24 03:10 RBC 4.56 10^6/uL (3.85-5.65) 10/17/24 03:10 Hgb 11.80 g/dL (11.27-16.99) 10/17/24 03:10 Hct 42.7 % (36-47) 10/17/24 03:10 MCV 93.6 fl (85-98) 10/17/24 03:10 MCH 25.9 pg (27-33) L 10/17/24 03:10 MCHC 27.6 g/dL (30-55) L 10/17/24 03:10 RDW 14.7 % (12.1-15.1) 10/17/24 03:10 Sodium 138 mmol/L (136-145) 10/17/24 03:10 Potassium 4.8 mmol/L (3.5-5.1) 10/17/24 03:10 Chloride 95 mmol/L (98-107) L 10/17/24 03:10 Carbon Dioxide 34 mmol/L (22-29) H 10/17/24 03:10 Anion Gap 13.8 (5-19) 10/17/24 03:10 BUN 13 mg/dL (8-23) 10/17/24 03:10 Creatinine 0.4 mg/dL (0.5-0.9) L 10/17/24 03:10 GFR Calculation 160.7 mL/min (90-130) H 10/17/24 03:10 Last dialysis session:: N/A Drug administration history:: Medications Azithromycin 500 mg/ Sodium (Chloride) 250 mls @ 250 mls/hr IV BEDTIME JAVON; Protocol Last Admin: 10/17/24 03:53 Dose: Infused Piperacillin Sod/Tazobactam (Sod / Sodium Chloride) 50 mls @ 0 mls/hr [id number] CONT JAVON; Protocol Discontinued Medications Cefepime HCl (Cefepime 1,000 Mg Sdv) 1,000 mg IVP ONCE ONE; Protocol Stop: 10/16/24 21:36 Last Admin: 10/16/24 22:21 Dose: 1,000 mg Ceftriaxone Sodium (Ceftriaxone 2,000 Mg Sdv) 2,000 mg IVP BEDTIME JAVON; Protocol Last Admin: 10/17/24 00:30 Dose: 2,000 mg Treatment plan:: new consult Regimen:: LOADING DOSE 3000 MG, MAINTENANCE DOSE 1250 Q8H PER PROTOCOL. Follow up:: WILL PLAN TO DRAW TROUGH PRIOR TO 4TH DOSE.
[2024-10-17] MEDS: piperacillin-tazobactam 3.375 GM in sodium chloride 0.9% (plus) 50 ML IV ×2 (08:56→16:46)
--- NOTE | 2024-10-17 09:07 | PC.PHAR ---
Pt states they took her Breztri inhaler away from her. Pt has Albuterol hfa inhaler for rescue and Roflumilast 500mg tablet daily last fill 08/08/24 30ds. Pharmacy states she needs both inhalers. Verified last fill dates and day supply , with [facility], after speaking with pt.
--- NOTE | 2024-10-17 10:01 | ECG_ITS ---
[facility] Test Date: 2024-10-17 Pat Name: Nadine Herrera Department: Room: ICU11 Gender: Female Corrosion Prevention Metal Sprayer: MEKHI: 1960 Requested By: Chloe Anderson Order Number: [id number] Patito MD: Scott Cruz M.D. Measurements Intervals [place] Rate: 77 P: 45 DE: 156 QRS: 53 QRSD: 91 T: 74 QT: 347 QTc: 393 Interpretive Statements SINUS RHYTHM Compared to ECG 10/16/2024 20:00:09 No significant changes Electronically Signed On 10-17-2024 22:38:16 CDT by Scott Cruz M.D. [email or web address]
[2024-10-17] MEDS: FUROsemide 10 mg/mL SDV 10mL 60 MG IVP (11:04)
[2024-10-17] MEDS: dexmedeTOMIDine 0.9 % NaCL 400 MCG/100 ML PREMIX IV (11:16)
--- NOTE | 2024-10-17 15:10 | P.PN_ITS ---
Subjective 2 Subjective: Patient resting comfortably when I entered the room. As soon as I wake her up she says no one can help me , I just want to leave . Her sister and [id number] arrived shortly after arriving visited with patient. The [id number] reports that the patient uses alcohol to calm her nerves. About a year ago she had withdrawal symptoms from alcohol. Her sister reports that she delivers food to her weekly. However the sister was not aware what happened to come to the hospital. The patient reports she has not slept in 3 days. And she is exhausted. Vitals/I&O/Wt Last Vital Signs Temp 97.7 F 10/17/24 05:55 Pulse 69 10/17/24 12:13 Resp 20 H 10/17/24 12:00 BP 145/92 10/17/24 11:30 Pulse Ox 93 10/17/24 12:13 O2 Del Method Heated High Flow 10/17/24 12:00 O2 Flow Rate 50 10/17/24 12:00 FiO2 60 10/17/24 12:00 10/17/24 10/17/24 10/17/24 06:59 14:59 22:59 Intake Total 683.75 / 683.75 120 / 120 Output Total 200 / 200 2550 / 2550 Balance 483.75 / 483.75 -2430 / -2430 Weight last 48 hrs Weight 97 kg Weight 97.522 kg Physical Exam 2 Narrative: Obese white female in no acute distress initially. Then she was tearful. She goes back to sleep without interaction easily while on Precedex Heart normal S1-S2 without loud murmur distant heart sounds Lungs a few scattered wheezes and rhonchi poor effort and poor aeration Abdomen obese soft nontender nondistended positive bowel sounds no hepatosplenomegaly Extremities nonpitting edema present in the lower extremities Data 10/17/24 03:10 10/17/24 03:10 Micro: Microbiology 10/16/24 20:08 Blood Culture - Preliminary Blood SPECIMEN COLLECTED 10/16/24 20:08 Blood Culture - Preliminary Blood SPECIMEN COLLECTED A&P Assessment and plan 1. Acute hypoxic on chronic hypercapnic respiratory failure: 2. Pneumonia: Multi lobar and right lung 3. COPD exacerbation: 4. Dyspnea on exertion: Acute on chronic 5. Acute anxiety: Acute on chronic Plan: #1 Acute on chronic hypoxic hypercapnic respiratory failure - Patient was on BiPAP and high flow. -She is currently on 5-1/2 L nasal cannula which is her home dose - continue antibiotics currently on Zithromax 500 mg, Zosyn 3.375 g and vancomycin - Continue IV steroids - DuoNeb every 4 hours while awake/respiratory assess and treat - Supplemental oxygen at 90% #2 COPD exacerbation - Similar treatment to above #3 Pneumonia bilateral basilar - As above #4 Chronic home oxygen at 6 L with persistent hypoxemia in the 70s at home - patient currently at her baseline home oxygen level #5 Acute on chronic anxiety disorder with a feeling of impending doom Patient was initially started on BuSpar at 5 mg p.o. 3 times daily Patient reports she takes Xanax 0.2 mg every 8 hours as needed At this point the patient has severe anxiety which is debilitating and limiting her treatment. I will start Ativan 0.5 mg twice daily during the day and Ativan 1 mg p.o. nightly in order to induce sleep. Plan to wean Precedex today #6 disabling shortness of breath. Will try low-dose Roxanol for dyspnea #7. Likely congestive heart failure. Patient responded to Lasix 60 mg with 2300 output consistent with fluid overload Started Lasix 40 mg IV every 12 hours GI and DVT prophylaxis in place PDMP PDMP Reviewed: Not Reviewed Attestations 2 Medical Necessity Statement*: Patient has required high flow oxygen and BiPAP. Patient also displays signs of acute congestive heart failure responding to Lasix. Patient requires close monitoring treatment with IV Lasix IV antibiotics IV steroids for acute respiratory failure Coding Level of Care Code Acute Code for [facility] Diagnoses Acute hypoxic on chronic hypercapnic respiratory failure J96.01; J96.12 Pneumonia J18.9 COPD exacerbation J44.1 Dyspnea on exertion R06.09 Acute anxiety F41.9
[2024-10-17] MEDS: morphine 10 mg/0.5 mL oral liq UD 5 MG PO ×2 (16:45→20:47)
--- NOTE | 2024-10-17 18:21 | ECG_ITS ---
[facility] Test Date: 2024-10-17 Pat Name: Nadine Herrera Department: Room: ICU11 Gender: Female Glass Tube Bender: : 1960 Requested By: Skinny Sahu Order Number: [id number] Patito MD: Scott Cruz M.D. Measurements Intervals [place] Rate: 69 P: 46 TX: 155 QRS: 54 QRSD: 97 T: 76 QT: 383 QTc: 410 Interpretive Statements SINUS RHYTHM Compared to ECG 10/17/2024 10:04:25 No significant changes Electronically Signed On 10-17-2024 22:36:01 CDT by Scott Cruz M.D. [email or web address]
[2024-10-17] MEDS: FUROsemide 10 mg/mL SDV 4mL 40 MG IVP (20:11)
[2024-10-17] MEDS: dexmedeTOMIDine 0.9 % NaCL 400 MCG/100 ML PREMIX 7.28 MCG IV (21:26)
[2024-10-18] VITALS (95 sets, daily range): BP systolic 73–180; BP diastolic 52–97; PULSE 65–123; RESP 15–31; TEMP 36.4–36.9; O2SAT 79–93
[2024-10-18] MEDS: piperacillin-tazobactam 3.375 GM in sodium chloride 0.9% (plus) 50 ML IV ×4 (00:20→23:33)
[2024-10-18] MEDS: methylPREDNISolone sod succ 125 mg/2 mL INJ 60 MG IVP (02:13)
--- NOTE | 2024-10-18 03:48 | PC.NURSE ---
CBC/CMP No morning labs ordered. Orders received from Dr. Belcher for cbc/cmp.
[2024-10-18] MEDS: morphine 10 mg/0.5 mL oral liq UD 5 MG PO ×4 (04:05→20:07)
[2024-10-18 04:47] LABS: Hematocrit 43.9 % (36-47); Hemoglobin 12.50 g/dL (11.27-16.99); Mean Corpuscular HGB Conc 28.5 g/dL (30-55); Mean Corpuscular Hemoglobin 26.1 pg (27-33); Mean Corpuscular Volume 91.6 fl (85-98); Nucleated Red Blood Cells % 0 %; Platelet Count 490 10^3/cmm (157-399); Red Blood Count 4.79 10^6/uL (3.85-5.65); White Blood Count 13.98 10^3/uL (3.29-11.43)
[2024-10-18 05:11] LABS: Alanine Aminotransferase 9 U/L (0-33); Albumin Level 3.1 g/dL (3.5-5.2); Alkaline Phosphatase 93 U/L (35-105); Aspartate Amino Transferase 11 U/L (0-32); Blood Urea Nitrogen 16 mg/dL (8-23); Calcium 9.2 mg/dL (8.5-10.5); Carbon Dioxide 35 mmol/L (22-29); Chloride 89 mmol/L (98-107); Globulin 3.5 g/dL (1.3-4.6); Glucose 189 mg/dL (65-115); Osmolality Calculated 290 mOsm/kg (285-295); Sodium 137 mmol/L (136-145); Total Protein 6.6 g/dL (6.6-8.7)
[2024-10-18 05:32] LABS: Anion Gap 17.1 (5-19); Creatinine Clr Calc Pharmacy 154.4568; Potassium 4.1 mmol/L (3.5-5.1)
[2024-10-18] MEDS: FUROsemide 10 mg/mL SDV 4mL 40 MG IVP ×2 (08:15→20:06)
--- NOTE | 2024-10-18 09:25 | P.PN_ITS ---
Subjective 2 Subjective: Patient was seen transferring to a chair. She did not appear significantly more winded than normal. She reports that she slept well overnight with the 1 mg of Ativan. RN had to wake her up this morning for breakfast Patient reports how anxious she is and claustrophobic. Compared to yesterday the patient is markedly improved. She was increased to 8 L overnight most likely due to obstructive sleep apnea and she cannot wear CPAP due to claustrophobia Vitals/I&O/Wt Last Vital Signs Temp 97.5 F L 10/18/24 03:45 Pulse 82 10/18/24 08:16 Resp 24 H 10/18/24 08:16 BP 155/73 10/18/24 07:00 Pulse Ox 91 10/18/24 08:16 O2 Del Method High Flow Nasal Cannula 10/18/24 08:16 O2 Flow Rate 8 10/18/24 08:16 FiO2 60 10/17/24 12:00 10/17/24 10/18/24 10/18/24 22:59 06:59 14:59 Intake Total 1100.240 / 1284.354 850 / 2134.354 82.507 / 82.507 Output Total 1000 / 3550 1990 / 5540 Balance 100.240 / -2265.646 -1140 / -3405.646 82.507 / 82.507 Weight last 48 hrs Weight 95.5 kg Weight 97 kg Weight 97.522 kg Physical Exam 2 Narrative: Obese white female in no acute distress. Heart normal S1-S2 without loud murmur distant heart sounds Lungs a few scattered wheezes and rhonchi left greater than right. Improved effort limited aeration Abdomen obese soft nontender nondistended positive bowel sounds no hepatosplenomegaly Extremities nonpitting edema present in the lower extremities Urinary Catheter Management: Petty: Cath Placed During This Visit: yes Reason for Continuing Indwelling Catheter: Accurate Measurement of Urinary Output in Critically Ill Patients Urinary Catheter Date of Insertion: 10/17/24 Urinary Catheter Time of Insertion: 12:00 Data 10/18/24 04:32 10/18/24 04:32 Micro: Microbiology 10/16/24 20:08 Blood Culture - Preliminary Blood NEGATIVE TO DATE 10/16/24 20:08 Blood Culture - Preliminary Blood NEGATIVE TO DATE 10/17/24 11:08 Gram Stain - Final Sputum - Expectorated Sputum A&P Assessment and plan 1. Acute hypoxic on chronic hypercapnic respiratory failure: 2. Pneumonia: Multi lobar and right lung 3. COPD exacerbation: 4. Dyspnea on exertion: Acute on chronic 5. Acute anxiety: Acute on chronic Plan: #1 Acute on chronic hypoxic hypercapnic respiratory failure -On 6 to 8 L. Her home oxygen level is 6. - currently on Zithromax 500 mg, Zosyn 3.375 g and vancomycin -Will DC vancomycin. -Start to wean IV steroids - DuoNeb every 4 hours while awake/respiratory assess and treat - Supplemental oxygen at 90% #2 COPD exacerbation - Similar treatment to above #3 Pneumonia bilateral basilar - As above #4 Chronic home oxygen at 6 L with persistent hypoxemia in the 70s at home - Patient requires increase of nasal cannula overnight due to JEAN #5 Acute on chronic anxiety disorder with a feeling of impending doom - Patient severely anxious and due to circumstances I do not think this could will change. The anxiety makes her breathing much worse and would recommend continued therapy with Ativan. -Currently she is on Ativan 0.5 mg twice daily during the day and then 1 mg at night to help with sleep - Plan to wean Precedex today #6 disabling shortness of breath. Markedly improved. Will try low-dose Roxanol for dyspnea #7. Likely congestive heart failure. Patient responded to Lasix 60 mg with 2300 output consistent with fluid overload -Continue Lasix 40 mg IV every 12 hours - Patient is -3.5 L since yesterday GI and DVT prophylaxis in place PDMP PDMP Reviewed: Not Reviewed Attestations 2 Medical Necessity Statement*: Patient requires hospitalization greater than 2 midnights due to acute hypoxic and hypercapnic respiratory failure Coding Level of Care Code Acute Code for [facility] Diagnoses Acute hypoxic on chronic hypercapnic respiratory failure J96.01; J96.12 Pneumonia J18.9 COPD exacerbation J44.1 Dyspnea on exertion R06.09 Acute anxiety F41.9
[2024-10-18] MEDS: methylPREDNISolone sod succ 125 mg/2 mL INJ 40 MG IVP ×2 (10:00→17:02)
[2024-10-18] MEDS: LORazepam 1 MG/0.5 ML injection 0.5 MG IVP ×2 (13:16→13:18)
[2024-10-18] MEDS: dexmedeTOMIDine 0.9 % NaCL 400 MCG/100 ML PREMIX IV (13:19)
--- NOTE | 2024-10-18 13:22 | PC.NURSE ---
Patient woke up and started to freak out stating that they could not breath. Patient was hyperventilating and their SPo2 stats were in the 70s. Respiratory therapist was called. Patient had been given all medications for anxiety. Patient then stated that they were dying . Dr. Sahu was contacted and she ordered to give 0.5 mg of ativan and to restart precedex drip. Patient started to calm down. Patient is now in their chair watching tv.
[2024-10-19] VITALS (51 sets, daily range): BP systolic 99–154; BP diastolic 49–89; PULSE 72–124; RESP 13–35; TEMP 36.7–37.1; O2SAT 85–97
[2024-10-19] MEDS: methylPREDNISolone sod succ 125 mg/2 mL INJ 40 MG IVP ×3 (01:09→17:07)
[2024-10-19] MEDS: morphine 10 mg/0.5 mL oral liq UD 5 MG PO ×4 (03:46→21:36)
[2024-10-19 03:50] LABS: Hematocrit 41.5 % (36-47); Hemoglobin 12.10 g/dL (11.27-16.99); Mean Corpuscular HGB Conc 29.2 g/dL (30-55); Mean Corpuscular Hemoglobin 25.8 pg (27-33); Mean Corpuscular Volume 88.5 fl (85-98); Nucleated Red Blood Cells % 0 %; Platelet Count 473 10^3/cmm (157-399); Red Blood Count 4.69 10^6/uL (3.85-5.65); White Blood Count 13.06 10^3/uL (3.29-11.43)
[2024-10-19 04:29] LABS: Anion Gap 15.4 (5-19); Blood Urea Nitrogen 22 mg/dL (8-23); Calcium 9.3 mg/dL (8.5-10.5); Carbon Dioxide 39 mmol/L (22-29); Chloride 90 mmol/L (98-107); Creatinine Clr Calc Pharmacy 122.6323; Glucose 194 mg/dL (65-115); Magnesium 2.0 mg/dL (1.7-2.3); Osmolality Calculated 299 mOsm/kg (285-295); Potassium 4.4 mmol/L (3.5-5.1); Sodium 140 mmol/L (136-145)
[2024-10-19] MEDS: piperacillin-tazobactam 3.375 GM in sodium chloride 0.9% (plus) 50 ML IV ×2 (08:09→15:27)
[2024-10-19] MEDS: FUROsemide 10 mg/mL SDV 4mL 40 MG IVP ×2 (08:09→21:24)
--- NOTE | 2024-10-19 09:16 | P.PN_ITS ---
Subjective 2 Subjective: Events of last 24 hours: After I saw the patient yesterday morning. She became agitated and aggressive. Her pulse ox lowered. She was placed back on Precedex and given additional dose of Ativan. The Precedex has been off since 6 AM. She is receiving her Ativan. I had started Seroquel yesterday to help with agitation/psychosis. Vitals/I&O/Wt Last Vital Signs Temp 98.8 F 10/19/24 05:50 Pulse 76 10/19/24 07:45 Resp 18 10/19/24 07:31 BP 118/49 10/19/24 06:00 Pulse Ox 89 L 10/19/24 07:31 O2 Del Method High Flow Nasal Cannula 10/19/24 07:31 O2 Flow Rate 8 10/19/24 07:31 FiO2 60 10/17/24 12:00 10/18/24 10/19/24 10/19/24 22:59 06:59 14:59 Intake Total 763.904 / 1142.800 94.094 / 1236.894 Output Total 3200 / 4050 Balance 763.904 / 292.800 -3105.906 / -2813.106 Weight last 48 hrs Weight 95.7 kg Weight 95.5 kg Physical Exam 2 Narrative: Obese white female in no acute distress. Able to sit up in bed for me to auscultate her lungs Heart normal S1-S2 without loud murmur distant heart sounds Lungs a few scattered wheezes and rhonchi left greater than right. Improved effort and improved aeration. Abdomen obese soft nontender nondistended positive bowel sounds no hepatosplenomegaly Extremities nonpitting edema present in the lower extremities Urinary Catheter Management: Petty: Cath Placed During This Visit: yes Reason for Continuing Indwelling Catheter: Accurate Measurement of Urinary Output in Critically Ill Patients Urinary Catheter Date of Insertion: 10/17/24 Urinary Catheter Time of Insertion: 12:00 Data 10/19/24 03:13 10/19/24 03:13 Micro: Microbiology 10/17/24 11:08 Gram Stain - Final Sputum - Expectorated Sputum Sputum Culture - Preliminary A&P Assessment and plan 1. Acute hypoxic on chronic hypercapnic respiratory failure: 2. Pneumonia: Multi lobar and right lung 3. COPD exacerbation: 4. Dyspnea on exertion: Acute on chronic 5. Acute anxiety: Acute on chronic Plan: #1 Acute on chronic hypoxic hypercapnic respiratory failure -On 8 L. Her home oxygen level is 6. - currently on Zithromax 500 mg, Zosyn 3.375 g day 3 -Steroids may be contributing to agitation although I doubt. Will continue to wean steroids - DuoNeb every 4 hours while awake/respiratory assess and treat #2 COPD exacerbation - Similar treatment to above #3 Pneumonia bilateral basilar - As above #4 JEAN - Patient claims claustrophobia and inability to wear CPAP at night. #5 Acute on chronic anxiety disorder with a feeling of impending doom - Patient severely anxious and due to circumstances I do not think this will change. The anxiety makes her breathing much worse and would recommend continued therapy with Ativan. -Currently she is on Ativan 0.5 mg twice daily during the day and then 1 mg at night to help with sleep -per RN it is considered as needed even though it is timed. Will officially change to scheduled #6 disabling shortness of breath. Markedly improved. Will try low-dose Roxanol for dyspnea #7. Likely congestive heart failure. Patient responded to Lasix 60 mg with 2300 output consistent with fluid overload -Continue Lasix 40 mg IV every 12 hours -Patient diuresed another 2.8 L in the last 24 hours GI and DVT prophylaxis in place Plan for today: Continue close monitoring in the ICU. If able to maintain off Precedex for 24 hours can move out of the unit. Wean steroids And echo will need to be done but will await 24-hour period of calmness prior to ordering PDMP PDMP Reviewed: Not Reviewed Attestations 2 Medical Necessity Statement*: Patient requires hospitalization greater than 2 midnights due to acute hypoxic and hypercapnic respiratory failure Coding Level of Care Code Acute Code for [facility] Diagnoses Acute hypoxic on chronic hypercapnic respiratory failure J96.01; J96.12 Pneumonia J18.9 COPD exacerbation J44.1 Dyspnea on exertion R06.09 Acute anxiety F41.9
[2024-10-20] VITALS (25 sets, daily range): BP systolic 105–156; BP diastolic 44–122; PULSE 90–118; RESP 17–31; TEMP 36.6–37; O2SAT 86–97; BMI 37.9
[2024-10-20] MEDS: piperacillin-tazobactam 3.375 GM in sodium chloride 0.9% (plus) 50 ML IV ×2 (00:56→08:35)
[2024-10-20] MEDS: methylPREDNISolone sod succ 125 mg/2 mL INJ 40 MG IVP ×2 (00:56→08:36)
[2024-10-20] MEDS: morphine 10 mg/0.5 mL oral liq UD 5 MG PO ×4 (03:33→21:01)
[2024-10-20 06:31] LABS: Anion Gap 13.8 (5-19); Blood Urea Nitrogen 25 mg/dL (8-23); Calcium 8.9 mg/dL (8.5-10.5); Carbon Dioxide 37 mmol/L (22-29); Chloride 92 mmol/L (98-107); Creatinine Clr Calc Pharmacy 121.4121; Glucose 222 mg/dL (65-115); Osmolality Calculated 297 mOsm/kg (285-295); Potassium 4.8 mmol/L (3.5-5.1); Sodium 138 mmol/L (136-145)
[2024-10-20] MEDS: FUROsemide 10 mg/mL SDV 4mL 40 MG IVP ×2 (08:36→21:03)
--- NOTE | 2024-10-20 10:25 | P.PN_ITS ---
Subjective 2 Subjective: Patient continues to improve She has been off Precedex for over 24 hours now She got a little anxious this morning but was able to be managed without additional medications Vitals/I&O/Wt Last Vital Signs Temp 98.5 F 10/20/24 05:00 Pulse 101 H 10/20/24 08:37 Resp 20 H 10/20/24 08:22 BP 132/62 10/20/24 08:00 Pulse Ox 92 10/20/24 08:22 O2 Del Method High Flow Nasal Cannula 10/20/24 08:22 O2 Flow Rate 8 10/20/24 08:22 FiO2 60 10/17/24 12:00 10/19/24 10/20/24 10/20/24 22:59 06:59 14:59 Intake Total 50 / 400 530 / 930 300 / 300 Output Total 2200 / 2200 2200 / 4400 Balance -2150 / -1800 -1670 / -3470 300 / 300 Weight last 48 hrs Weight 94 kg Weight 95.7 kg Physical Exam 2 Narrative: Obese white female in no acute distress. She has been sitting in chair. She has been able to lean forward for me to examine her lungs Heart normal S1-S2 without loud murmur distant heart sounds Lungs more wheezing noted today anteriorly. This could actually be due to improvement of respiratory function. And today I do hear rales at the right base Abdomen obese soft nontender nondistended positive bowel sounds no hepatosplenomegaly Extremities nonpitting edema present in the lower extremities Urinary Catheter Management: Petty: Cath Placed During This Visit: yes Reason for Continuing Indwelling Catheter: Accurate Measurement of Urinary Output in Critically Ill Patients Urinary Catheter Date of Insertion: 10/17/24 Urinary Catheter Time of Insertion: 12:00 Data 10/19/24 03:13 10/20/24 06:05 Micro: Microbiology 10/17/24 11:08 Gram Stain - Final Sputum - Expectorated Sputum Sputum Culture - Preliminary Coag positive Staphylococcus Other data: Patient had an echocardiogram on 04/25/2023. That is approximately a year and a half ago. Findings: Normal left ventricular size and systolic function. EF 57% with mild left ventricular hypertrophy. Grade 1/4 diastolic dysfunction with normal to mildly elevated filling pressures A&P Assessment and plan 1. Acute hypoxic on chronic hypercapnic respiratory failure: 2. Anxiety: 3. Breathlessness: 4. Diastolic heart failure: 5. Hypertension: 6. Oxygen dependent: 7. Pneumonia: Multi lobar and right lung 8. COPD exacerbation: 9. Dyspnea on exertion: Acute on chronic 10. Acute anxiety: Acute on chronic Plan: #1 Acute on chronic hypoxic hypercapnic respiratory failure -On 8 L. Her home oxygen level is 6. - currently on Zithromax 500 mg, Zosyn 3.375 g day 4 - Changed to oral Zithromax and Omnicef. - Patient having some wheezing. She is moving more air will continue steroids at current dose - DuoNeb every 4 hours while awake/respiratory assess and treat #2 COPD exacerbation - Similar treatment to above #3 Pneumonia bilateral basilar - As above #4 JEAN - Patient claims claustrophobia and inability to wear CPAP at night. #5 Acute on chronic anxiety disorder with a feeling of impending doom - Patient severely anxious and due to circumstances I do not think this will change. The anxiety makes her breathing much worse and would recommend continued therapy with Ativan. -Currently she is on Ativan 0.5 mg twice daily during the day and then 1 mg at night to help with sleep - I added Seroquel 2 days ago which is really helping keeping her calm and less anxious. I would recommend continuing on discharge #6 disabling shortness of breath. Markedly improved. -Shortness of breath improved on low-dose Roxanol scheduled. Would recommend this at discharge #7. Diastolic heart failure. Patient has been on Lasix 40 mg every 12 hours. Patient responded to Lasix 60 mg with 2300 output consistent with fluid overload -patient with good urine output. She is overall negative almost 9 L. - GI and DVT prophylaxis in place Plan for today: * Transfer to floor * Change IV to oral antibiotics * Continue current dose of steroids * Continue Ativan Seroquel and Roxanol to treat breathlessness and anxiety * Recommend echo prior to discharge once patient is diuresed more. PDMP PDMP Reviewed: Not Reviewed Attestations 2 Medical Necessity Statement*: Patient requires hospitalization greater than 2 midnights due to acute hypoxic and hypercapnic respiratory failure Coding Level of Care Code Acute Code for [facility] Diagnoses Acute hypoxic on chronic hypercapnic respiratory failure J96.01; J96.12 Anxiety F41.9 Breathlessness R06.81 Diastolic heart failure I50.30 Hypertension I10 Oxygen dependent Z99.81 Pneumonia J18.9 COPD exacerbation J44.1 Dyspnea on exertion R06.09 Acute anxiety F41.9
[2024-10-20] MEDS: LORazepam 1 MG/0.5 ML injection IVP (13:07)
--- NOTE | 2024-10-20 13:26 | PC.NURSE ---
Patient arrived to [facility] and proceeded to have severe panic attack with excessive weeping stating, this otero is too narrow and the room too small. I want to go upstairs to a bigger room. I will even share a room. Called Dr Sahu and received onetime order for lorazepam 1mg IVP. Put signs at door to keep door open , opened window and silenced cardiac monitoring. Patient is currently more calm and is watching tv. Dr Sahu is ok with moving patient to [facility] if and when a bed becomes available. press supervisor has been notified.
[2024-10-20] MEDS: methylPREDNISolone sod succ 40 mg/mL INJ IVP (21:03)
[2024-10-21] VITALS (14 sets, daily range): BP systolic 139–154; BP diastolic 67–73; PULSE 88–114; RESP 18–25; TEMP 36.6–36.7; O2SAT 87–95
[2024-10-21] MEDS: morphine 10 mg/0.5 mL oral liq UD 5 MG PO ×4 (02:51→21:33)
[2024-10-21 03:49] LABS: Anion Gap 13.1 (5-19); Blood Urea Nitrogen 25 mg/dL (8-23); Calcium 9.1 mg/dL (8.5-10.5); Carbon Dioxide 37 mmol/L (22-29); Chloride 88 mmol/L (98-107); Creatinine Clr Calc Pharmacy 121.4121; Glucose 268 mg/dL (65-115); Osmolality Calculated 290 mOsm/kg (285-295); Potassium 5.1 mmol/L (3.5-5.1); Sodium 133 mmol/L (136-145)
[2024-10-21] MEDS: LORazepam 1 MG/0.5 ML injection 0.5 MG IVP (04:13)
--- NOTE | 2024-10-21 07:17 | PC.NURSE ---
late entry, patient had episode of anxiety early on in the shift, stating I can't do this, I just want to be upstairs, this room is too small! , patient moved to room 111, scheduled ativan and morphine given, patient somewhat calmer, appx. 0400 patient put call light on stating, I'm having another panic attack, I just have to get out of here! patient pulling off telemetry wires and pulling on oxygen tubing stating it was choking her even though it was not on her neck and was very loosely on face, Dr Belcher contacted and 0.5 mg IVP ativan given
[2024-10-21] MEDS: FUROsemide 10 mg/mL SDV 4mL 40 MG IVP (07:29)
[2024-10-21] MEDS: methylPREDNISolone sod succ 40 mg/mL INJ IVP (07:29)
--- NOTE | 2024-10-21 10:00 | PC.OT ---
OT EVALUATION ATTEMPTED IN A.M. NO FURTHER SKILLED OT REQUIRED
--- NOTE | 2024-10-21 14:09 | P.PN_ITS ---
Subjective 2 Subjective: Seen this morning. Patient on 8L nasal cannula no conversational dyspnea appearing comfortable at this time. With a friend at bedside. Vitals/I&O/Wt Last Vital Signs Temp 97.9 F 10/21/24 07:25 Pulse 113 H 10/21/24 12:00 Resp 20 H 10/21/24 12:00 BP 142/67 10/21/24 12:00 Pulse Ox 90 10/21/24 12:00 O2 Del Method High Flow Nasal Cannula 10/21/24 11:08 O2 Flow Rate 7 10/21/24 11:08 FiO2 60 10/17/24 12:00 10/20/24 10/21/24 10/21/24 22:59 06:59 14:59 Intake Total 480 / 1080 480 / 1560 900 / 900 Output Total 2200 / 2200 1600 / 3800 Balance -1720 / -1120 -1120 / -2240 900 / 900 Weight last 48 hrs Weight 93.576 kg Weight 94 kg Physical Exam 2 Narrative: General: No acute distress, AO x3 HEENT: PERRLA, pupils bilaterally equal and reactive, patient appears euvolemic today. Chest: Velcro type breath sounds at left lower base and mildly at right lower base. CVS: S1-S2 regular, no murmurs, Abdomen: Soft, nontender, bowel sounds present Neuro: Alert oriented x 3. Urinary Catheter Management: Petty: Cath Placed During This Visit: yes Reason for Continuing Indwelling Catheter: Acute Urinary Retention or Obstruction Urinary Catheter Date of Insertion: 10/17/24 Urinary Catheter Time of Insertion: 12:00 Data 10/19/24 03:13 10/21/24 02:45 Micro: Microbiology 10/17/24 11:08 Gram Stain - Final Sputum - Expectorated Sputum Sputum Culture - Final Staphylococcus aureus A&P Assessment and plan 1. Acute hypoxic on chronic hypercapnic respiratory failure: 2. Anxiety: 3. Breathlessness: 4. Diastolic heart failure: 5. Hypertension: 6. Oxygen dependent: 7. Pneumonia: Multi lobar and right lung 8. COPD exacerbation: 9. Dyspnea on exertion: Acute on chronic 10. Acute anxiety: Acute on chronic Plan: #1 Acute on chronic hypoxic hypercapnic respiratory failure -On 8 L. Her home oxygen level is 6. - currently on Zithromax 500 mg, Zosyn 3.375 g day 4 - Changed to oral Zithromax and Omnicef. - Patient having some wheezing. She is moving more air will continue steroids at current dose - DuoNeb every 4 hours while awake/respiratory assess and treat #2 COPD exacerbation - Similar treatment to above #3 Pneumonia bilateral basilar - As above #4 JEAN - Patient claims claustrophobia and inability to wear CPAP at night. #5 Acute on chronic anxiety disorder with a feeling of impending doom - Patient severely anxious and due to circumstances I do not think this will change. The anxiety makes her breathing much worse and would recommend continued therapy with Ativan. -Currently she is on Ativan 0.5 mg twice daily during the day and then 1 mg at night to help with sleep - I added Seroquel 2 days ago which is really helping keeping her calm and less anxious. I would recommend continuing on discharge #6 disabling shortness of breath. Markedly improved. -Shortness of breath improved on low-dose Roxanol scheduled. Would recommend this at discharge #7. Diastolic heart failure. Patient has been on Lasix 40 mg every 12 hours. Patient responded to Lasix 60 mg with 2300 output consistent with fluid overload -patient with good urine output. She is overall negative almost 9 L. - GI and DVT prophylaxis in place Plan for today: * Transfer to floor * Change IV to oral antibiotics * Continue current dose of steroids * Continue Ativan Seroquel and Roxanol to treat breathlessness and anxiety * Recommend echo prior to discharge once patient is diuresed more. * * _ 10/21/2024 Patient on 8 liter nasal cannula today. She states that her anxiety is out of control. Discussed with her regarding psychiatric consult to which she is agreeable. Continue on Ativan, Zithromax, cefdinir. Continue on Solu-Medrol 40 IV twice daily. He has been on Lasix 40 every 12 hours. She is 10 L negative. I will reduce Lasix to 40 once a day. Continue Seroquel and Roxanol to treat restlessness and anxiety. Echo ordered. Will follow-up results. Psychiatry consulted. PDMP PDMP Reviewed: Not Reviewed Attestations 2 Medical Necessity Statement*: Patient is high oxygen requirements. Requires continued hospitalization. Diagnoses Acute hypoxic on chronic hypercapnic respiratory failure J96.01; J96.12 Anxiety F41.9 Breathlessness R06.81 Diastolic heart failure I50.30 Hypertension I10 Oxygen dependent Z99.81 Pneumonia J18.9 COPD exacerbation J44.1 Dyspnea on exertion R06.09 Acute anxiety F41.9
--- NOTE | 2024-10-21 14:20 | USCV_ITS ---
Nadine Herrera Age: 64 Gender: F : 1960 Exam Date: 10/21/2024 16:13 Ordering Phys: Chloe Anderson MD Technologist: KOBY [place] [facility] [place]ication: morbid obesity, COPD, JEAN, O2-dependent 6L, No history of cardiac intervention per patient. BP: 142 / 67 HR: 107 Rhythm: Sinus Technical Quality: Fair MEASUREMENTS (Male / Female) Normal Values 2D ECHO LV Diastolic Diameter PLAX 3.4 cm 4.2 - 5.9 / 3.9 - 5.3 cm IVS Diastolic Thickness 1.6 cm 0.6 - 1.0 / 0.6 - 0.9 cm IVS Systolic Thickness 1.8 cm LVPW Diastolic Thickness 1.5 cm 0.6 - 1.0 / 0.6 - 0.9 cm LVPW Systolic Thickness 1.5 cm LVOT Diameter 2.0 cm LV Ejection Fraction 2D Teich 34.9 % LV Ejection Fraction MOD 4C 46.6 % LV Ejection Fraction MOD 2C 62.6 % LV Ejection Fraction 2C AL 63.1 % LA Diameter 4.0 cm Aorta at Sinotubular Diameter 3.0 cm IVC Diameter 1.5 cm M-MODE LA Ao Ratio MM 1.4 AV Cusp Separation MM 1.8 cm DOPPLER AV Peak Velocity 197.0 cm/s LVOT Peak Velocity 142.0 cm/s AV Area Cont Eq vti 2.3 cm squared AV Area Cont Eq pk 2.3 cm squared MV Peak Velocity 158.0 cm/s MV Area PHT 4.8 cm squared Mitral E to A Ratio 0.7 TV Peak E Velocity 30.0 cm/s FINDINGS Left Ventricle Normal left ventricular size and systolic function, EF 62%.Mild to moderate left ventricular hypertrophy. Grade I/IV diastolic dysfunction (abnormal relaxation filling pattern), normal to mildly elevated filling pressures. Right Ventricle The right ventricle is normal in size and function. Right Atrium The right atrium is normal in size. Left Atrium The left atrium is normal in size. Mitral Valve Moderate mitral annular calcification. Aortic Valve Thickened aortic valve. Elevated velocity at the aortic valve Tricuspid Valve No gross abnormalities noted-difficult visualize Pulmonic Valve Pulmonic valve not well visualized. Pericardium No pericardial effusion. Aorta Normal aortic annulus size. IVC Normal inferior vena cava. CONCLUSIONS Normal left ventricular size and systolic function, EF 62%. Mild to moderate left ventricular hypertrophy. Grade I/IV diastolic dysfunction (abnormal relaxation filling pattern), normal to mildly elevated filling pressures. Moderate mitral annular calcification. Thickened aortic valve. Features of aortic valve sclerosis . there is no pericardial effusion. There are no intracardiac masses. Compared to the study from 05/15/2023, there may not be a significant change Dr Renee Ribeiro MD [facility] (Electronically Signed) Final Date: 22 October 2024 09:26 S
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
[2024-10-21 19:39] LABS: Blood Urea Nitrogen 30 mg/dL (8-23); Calcium 9.4 mg/dL (8.5-10.5); Carbon Dioxide 29 mmol/L (22-29); Chloride 88 mmol/L (98-107); Creatinine Clr Calc Pharmacy 121.1078; Glucose 183 mg/dL (65-115); Osmolality Calculated 281 mOsm/kg (285-295); Sodium 130 mmol/L (136-145)
[2024-10-21 19:43] LABS: Anion Gap 18.6 (5-19); Potassium 5.6 mmol/L (3.5-5.1)
[2024-10-22] VITALS (12 sets, daily range): BP systolic 115–169; BP diastolic 53–84; PULSE 86–116; RESP 18–27; TEMP 36.2–36.8; O2SAT 86–94
[2024-10-22] MEDS: morphine 10 mg/0.5 mL oral liq UD 5 MG PO ×4 (03:31→20:40)
[2024-10-22 04:56] LABS: Hematocrit 44.0 % (36-47); Hemoglobin 12.60 g/dL (11.27-16.99); Mean Corpuscular HGB Conc 28.6 g/dL (30-55); Mean Corpuscular Hemoglobin 25.7 pg (27-33); Mean Corpuscular Volume 89.6 fl (85-98); Nucleated Red Blood Cells % 0 %; Platelet Count 477 10^3/cmm (157-399); Red Blood Count 4.91 10^6/uL (3.85-5.65); White Blood Count 13.87 10^3/uL (3.29-11.43)
[2024-10-22 05:31] LABS: Alanine Aminotransferase 21 U/L (0-33); Albumin Level 3.4 g/dL (3.5-5.2); Alkaline Phosphatase 72 U/L (35-105); Anion Gap 11.7 (5-19); Aspartate Amino Transferase 11 U/L (0-32); Blood Urea Nitrogen 33 mg/dL (8-23); Calcium 9.5 mg/dL (8.5-10.5); Carbon Dioxide 39 mmol/L (22-29); Chloride 90 mmol/L (98-107); Creatinine Clr Calc Pharmacy 121.1078; Globulin 2.8 g/dL (1.3-4.6); Glucose 133 mg/dL (65-115); Magnesium 2.3 mg/dL (1.7-2.3); Osmolality Calculated 291 mOsm/kg (285-295); Potassium 4.7 mmol/L (3.5-5.1); Sodium 136 mmol/L (136-145); Total Protein 6.2 g/dL (6.6-8.7)
[2024-10-22] MEDS: methylPREDNISolone sod succ 40 mg/mL INJ IVP (08:25)
--- NOTE | 2024-10-22 09:40 | PC.SOCIAL ---
IMM Update Updated pt on IMM. No questions voiced. Provided pt a copy. Initialed,dated, & timed copy in chart.
--- NOTE | 2024-10-22 11:11 | P.PN_ITS ---
Subjective 2 Subjective: seen this am on 10 L NC saturating 96% says she was upset this morning would be interested in rehab saw psych yesterday , rodrick started Vitals/I&O/Wt Last Vital Signs Temp 98.0 F 10/22/24 07:51 Pulse 116 H 10/22/24 08:20 Resp 18 10/22/24 08:20 BP 132/73 10/22/24 07:51 Pulse Ox 88 L 10/22/24 08:20 O2 Del Method High Flow Nasal Cannula 10/22/24 08:20 O2 Flow Rate 10 10/22/24 08:20 FiO2 60 10/17/24 12:00 10/21/24 10/22/24 10/22/24 22:59 06:59 14:59 Intake Total 240 / 1140 240 / 240 Output Total 2900 / 2900 400 / 3300 Balance -2660 / -1760 -400 / -2160 240 / 240 Weight last 48 hrs Weight 92.624 kg Weight 93.576 kg Physical Exam 2 Narrative: General: No acute distress, AO x3 HEENT: PERRLA, pupils bilaterally equal and reactive, Chest: clear to auscultation b/l CVS: S1-S2 regular, no murmurs, Abdomen: Soft, nontender, bowel sounds present Neuro: Alert oriented x 3. Urinary Catheter Management: Petty: Cath Placed During This Visit: yes, but has since been removed by the nurse Reason for Continuing Indwelling Catheter: Acute Urinary Retention or Obstruction Urinary Catheter Date of Insertion: 10/17/24 Urinary Catheter Time of Insertion: 12:00 Date Urinary Catheter Removed: 10/21/24 Time Urinary Catheter Discontinued: 15:00 Data 10/22/24 04:26 10/22/24 04:26 Micro: Microbiology 10/16/24 20:08 Blood Culture - Final Blood NO GROWTH AFTER 5 DAYS 10/16/24 20:08 Blood Culture - Final Blood NO GROWTH AFTER 5 DAYS A&P Assessment and plan 1. Acute hypoxic on chronic hypercapnic respiratory failure: 2. Anxiety: 3. Breathlessness: 4. Diastolic heart failure: 5. Hypertension: 6. Oxygen dependent: 7. Pneumonia: Multi lobar and right lung 8. COPD exacerbation: 9. Dyspnea on exertion: Acute on chronic 10. Acute anxiety: Acute on chronic Plan: #1 Acute on chronic hypoxic hypercapnic respiratory failure -On 8 L. Her home oxygen level is 6. - currently on Zithromax 500 mg, Zosyn 3.375 g day 4 - Changed to oral Zithromax and Omnicef. - Patient having some wheezing. She is moving more air will continue steroids at current dose - DuoNeb every 4 hours while awake/respiratory assess and treat #2 COPD exacerbation - Similar treatment to above #3 Pneumonia bilateral basilar - As above #4 JEAN - Patient claims claustrophobia and inability to wear CPAP at night. #5 Acute on chronic anxiety disorder with a feeling of impending doom - Patient severely anxious and due to circumstances I do not think this will change. The anxiety makes her breathing much worse and would recommend continued therapy with Ativan. -Currently she is on Ativan 0.5 mg twice daily during the day and then 1 mg at night to help with sleep - I added Seroquel 2 days ago which is really helping keeping her calm and less anxious. I would recommend continuing on discharge #6 disabling shortness of breath. Markedly improved. -Shortness of breath improved on low-dose Roxanol scheduled. Would recommend this at discharge #7. Diastolic heart failure. Patient has been on Lasix 40 mg every 12 hours. Patient responded to Lasix 60 mg with 2300 output consistent with fluid overload -patient with good urine output. She is overall negative almost 9 L. - GI and DVT prophylaxis in place Plan for today: * Transfer to floor * Change IV to oral antibiotics * Continue current dose of steroids * Continue Ativan Seroquel and Roxanol to treat breathlessness and anxiety * Recommend echo prior to discharge once patient is diuresed more. * * _ 10/21/2024 Patient on 8 liter nasal cannula today. She states that her anxiety is out of control. Discussed with her regarding psychiatric consult to which she is agreeable. Continue on Ativan, Zithromax, cefdinir. Continue on Solu-Medrol 40 IV twice daily. He has been on Lasix 40 every 12 hours. She is 10 L negative. I will reduce Lasix to 40 once a day. Continue Seroquel and Roxanol to treat restlessness and anxiety. Echo ordered. Will follow-up results. Psychiatry consulted. 10/22/2024 oxygen requirements are quite high continue on solumedrol 40 q24 hours continue lasix 40 PO daily continue seroquel 50 at bedtime stop xanax appreciate psych recs cefdinir 300 BID case mgmt consulted for rehab placement patients oxygen requirements need to be lowered prior to dc, will continue pulm toilet IS, Flutter valve PDMP PDMP Reviewed: Not Reviewed Attestations 2 Medical Necessity Statement*: high oxygen requirements Diagnoses Acute hypoxic on chronic hypercapnic respiratory failure J96.01; J96.12 Anxiety F41.9 Breathlessness R06.81 Diastolic heart failure I50.30 Hypertension I10 Oxygen dependent Z99.81 Pneumonia J18.9 COPD exacerbation J44.1 Dyspnea on exertion R06.09 Acute anxiety F41.9
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
[2024-10-23] VITALS (9 sets, daily range): BP systolic 116–149; BP diastolic 65–82; PULSE 85–112; RESP 18–22; TEMP 36.1–36.7; O2SAT 83–97; BMI 39.1
[2024-10-23] MEDS: morphine 10 mg/0.5 mL oral liq UD 5 MG PO ×3 (03:52→15:17)
[2024-10-23 04:29] LABS: Hematocrit 44.0 % (36-47); Hemoglobin 12.70 g/dL (11.27-16.99); Mean Corpuscular HGB Conc 28.9 g/dL (30-55); Mean Corpuscular Hemoglobin 26.0 pg (27-33); Mean Corpuscular Volume 90.2 fl (85-98); Nucleated Red Blood Cells % 0 %; Platelet Count 450 10^3/cmm (157-399); Red Blood Count 4.88 10^6/uL (3.85-5.65); White Blood Count 16.74 10^3/uL (3.29-11.43)
[2024-10-23 05:05] LABS: Anion Gap 11.5 (5-19); Blood Urea Nitrogen 35 mg/dL (8-23); Calcium 9.0 mg/dL (8.5-10.5); Carbon Dioxide 38 mmol/L (22-29); Chloride 93 mmol/L (98-107); Creatinine Clr Calc Pharmacy 120.4244; Glucose 125 mg/dL (65-115); Magnesium 2.3 mg/dL (1.7-2.3); Osmolality Calculated 295 mOsm/kg (285-295); Potassium 4.5 mmol/L (3.5-5.1); Sodium 138 mmol/L (136-145)
[2024-10-23] MEDS: methylPREDNISolone sod succ 40 mg/mL INJ IVP (09:31)
[2024-10-23] MEDS: FUROsemide 10 mg/mL SDV 10mL 60 MG IVP (12:02)
--- NOTE | 2024-10-23 12:36 | PM.TDS ---
Transfer Summary Providers Date of Admission: 10/17/24 01:28 Date of Discharge/Transfer: 10/23/24 Attending Provider at Admission: Meri Belcher MD Attending Provider at Transfer: Chloe Anderson MD Primary Care Provider: Nathan Schultz Transfer Plans: Anticipated date of transfer: 10/23/24. Diagnoses at Discharge Discharge Diagnosis 1. Anxiety: 2. Personality disorder, unspecified: Reason for Visit Reason for Visit SOB Hospital Course Hospital Course Per Dr. Belcher : Nadine Herrera is a 64 year old female who looks older than 70, morbidly obese, truncal obesity with a history of COPD, obstructive sleep apnea and on chronic home oxygen at 6 L pulse oxing in the 70s at home all the time according to the patient. Patient had had a boarding of much shortness of breath to where she could not continue staying at home she called the rescue squad to take her to the emergency room. Upon arriving in the emergency room patient is on the 100% non rebreather mask and pulse oxing at 80. Lab studies were done for ABG CMP CBC Initial ABG today in the emergency room was 7.32/85.9 pCO2/68.3 PO 2/90% FiO2/44 bicarb Chest x-ray significant for right lower lobe pneumonia CT was done shows bilateral patchy infiltrates Patient is full code and will be going to ICU on BiPAP she is fully awake and alert but very anxious. Hospital course: Patient initially admitted and was heated high flow 50% FiO2 very anxious. She just could not take a breath and and at times is requesting for hospice because she stated she cannot do it anymore. She was treated for severe COPD exacerbation and bilateral bibasilar pneumonia. Sputum Gram stain culture grows Staph aureus sensitive to beta-lactam's. Patient on cefdinir now. Initially was treated with broad-spectrum antibiotics. Patient does have a component of diastolic heart failure and has been on Lasix 40 every 12 hours. She has responded really well and is 13 L negative at this point. She is still requiring 10 L nasal cannula at this time. Her oxygen requirements are not going down. She gets super anxious looking at her oxygen dropping on the monitor and then desaturates. Is currently on Seroquel at night and on Klonopin during daytime. Psychiatry was consulted as well. She did require Precedex drip while in ICU. We are treating anxiety as well. However at times when patient is not anxious and resting comfortably in bed she is still requiring 10 L nasal cannula and saturating close to 84-86%. At this point I recommend patient needs a pulmonology consultation for optimizing her oxygen at this time. Being on 10 L we are unable to discharge her home. Discussed with patient who is agreeable to transfer to higher level of care pulmonology consultation. Physical Exam Narrative: General: No acute distress, AO x3 HEENT: PERRLA, pupils bilaterally equal and reactive, Chest: clear to auscultation b/l CVS: S1-S2 regular, no murmurs, Abdomen: Soft, nontender, bowel sounds present Neuro: Alert oriented x 3. Urinary Catheter Management: Petty: Cath Placed During This Visit: yes, but has since been removed by the nurse Reason for Continuing Indwelling Catheter: Acute Urinary Retention or Obstruction Urinary Catheter Date of Insertion: 10/17/24 Urinary Catheter Time of Insertion: 12:00 Date Urinary Catheter Removed: 10/21/24 Time Urinary Catheter Discontinued: 15:00 TS Data Studies Completed and Pending Completed Studies During Hospitalization Category Date Time Status CT angio chest PE protcl [id number] Stat Cat Scan 10/16/24 20:23 Completed XR chest 1V portable [id number] Stat Exams 10/16/24 20:23 Completed CV. echo complete* [id number] Routine Ultrasound 10/21/24 14:20 Completed Laboratory Last Values WBC 16.74 10^3/uL (3.29-11.43) H 10/23/24 03:23 RBC 4.88 10^6/uL (3.85-5.65) 10/23/24 03:23 Hgb 12.70 g/dL (11.27-16.99) 10/23/24 03:23 Hct 44.0 % (36-47) 10/23/24 03:23 MCV 90.2 fl (85-98) 10/23/24 03:23 MCH 26.0 pg (27-33) L 10/23/24 03:23 MCHC 28.9 g/dL (30-55) L 10/23/24 03:23 RDW 15.1 % (12.1-15.1) 10/23/24 03:23 Plt Count 450 10^3/cmm (157-399) H 10/23/24 03:23 MPV 9.0 fL (7.4-10.4) 10/23/24 03:23 Neut % (Auto) 79.3 % 10/23/24 03:23 Lymph % (Auto) 11.2 % 10/23/24 03:23 Lamb % (Auto) 7.8 % 10/23/24 03:23 Eos % (Auto) 0.5 % 10/23/24 03:23 Baso % (Auto) 0.1 % 10/23/24 03:23 Neut # (Auto) 13.26 10^3/uL (1.8-7.7) H 10/23/24 03:23 Lymph # (Auto) 1.9 10^3/uL (0.8-4.8) 10/23/24 03:23 Lamb # (Auto) 1.3 10^3/uL (0.2-0.9) H 10/23/24 03:23 Eos # (Auto) 0.1 10^3/uL (0.0-0.8) 10/23/24 03:23 Baso # (Auto) 0.0 10^3/uL (0.0-0.1) 10/23/24 03:23 Nucleated RBC % (auto) 0 % 10/23/24 03:23 Nucleated RBCs # 0.0 /100WBC 10/23/24 03:23 PT 13.30 SECONDS (12.1-14.9) 10/16/24 20:08 INR 0.95 (0.8-1.2) 10/16/24 20:08 APTT 27.1 SECONDS (23.9-36.7) 10/16/24 20:08 Specimen Type Arterial 10/16/24 21:38 Sample Site Brachial, right 10/16/24 21:38 ABG pH 7.32 (7.35-7.45) L 10/16/24 21:38 ABG pCO2 85.9 mmHg (35-45) H* 10/16/24 21:38 ABG pO2 68.3 mmHg (80.0-100.0) L 10/16/24 21:38 ABG PO2/FiO2 Ratio 75 10/16/24 21:38 ABG HCO3 44.0 mmol/L (22-26) H 10/16/24 21:38 ABG Base Excess 13.9 mmol/L (-2.0-2.0) H 10/16/24 21:38 Magnus Test Pos 10/16/24 21:38 Hematocrit 40.5 % (37-47) 10/16/24 21:38 O2 Delivery Device Nrb 10/16/24 21:38 O2 Liters/Min 15.0 % 10/16/24 21:38 FiO2 90.0 % 10/16/24 21:38 [employer] ID gerca 10/16/24 21:38 Sodium 138 mmol/L (136-145) 10/23/24 03:23 Potassium 4.5 mmol/L (3.5-5.1) 10/23/24 03:23 Chloride 93 mmol/L (98-107) L 10/23/24 03:23 Carbon Dioxide 38 mmol/L (22-29) H 10/23/24 03:23 Anion Gap 11.5 (5-19) 10/23/24 03:23 BUN 35 mg/dL (8-23) H 10/23/24 03:23 Creatinine 0.5 mg/dL (0.5-0.9) 10/23/24 03:23 GFR Calculation 124.2 mL/min (90-130) 10/23/24 03:23 Glucose 125 mg/dL (65-115) H 10/23/24 03:23 POC Glucose 150 mg/dL (70-110) H 10/18/24 00:33 Calculated Osmolality 295 mOsm/kg (285-295) 10/23/24 03:23 Lactic Acid 1.6 mmol/L (0.5-2.2) 10/16/24 20:08 Calcium 9.0 mg/dL (8.5-10.5) 10/23/24 03:23 Phosphorus 4.1 mg/dL (2.5-4.5) 10/17/24 03:10 Magnesium 2.3 mg/dL (1.7-2.3) 10/23/24 03:23 Total Bilirubin 0.2 mg/dL (0.15-1.2) 10/22/24 04:26 AST 11 U/L (0-32) 10/22/24 04:26 ALT 21 U/L (0-33) 10/22/24 04:26 Alkaline Phosphatase 72 U/L (35-105) 10/22/24 04:26 Troponin T Baseline 12 ng/L (0-10) H 10/16/24 20:08 Troponin T 120 Minute 11.39 ng/L (0-10) H 10/16/24 22:14 Delta Troponin T -0.61 ABS# (0-10) L 10/16/24 22:14 Troponin T Hi Sens 6Hr 10.36 ng/L (0-10) H 10/17/24 03:10 Troponin T Hi Sens 6Hr Delta -1.64 ng/L (0-12) L 10/17/24 03:10 NT-Pro-B Natriuret Pep 264 pg/mL (0-125) H 10/16/24 20:08 Total Protein 6.2 g/dL (6.6-8.7) L 10/22/24 04:26 Albumin 3.4 g/dL (3.5-5.2) L 10/22/24 04:26 Globulin 2.8 g/dL (1.3-4.6) 10/22/24 04:26 Adenovirus (PCR) Not detected (NOT DETECT) 10/17/24 03:52 C. pneumoniae DNA (PCR) Not detected (NOT DETECT) 10/17/24 03:52 Coronavirus 229E (PCR) Not detected (NOT DETECT) 10/17/24 03:52 Human Metapneumovir PCR Not detected (NOT DETECT) 10/17/24 03:52 Influenza A (H1) PCR Not detected (NOT DETECT) 10/17/24 03:52 Influ A (H1/09) PCR Not detected (NOT DETECT) 10/17/24 03:52 Influenza A (H3) PCR Not detected (NOT DETECT) 10/17/24 03:52 Influenza Type A (PCR) Not detected (NOT DETECT) 10/17/24 03:52 Influenza Type B (PCR) Not detected (NOT DETECT) 10/17/24 03:52 M. pneumoniae (PCR) Not detected (NOT DETECT) 10/17/24 03:52 Parainfluenza 1 (PCR) Not detected (NOT DETECT) 10/17/24 03:52 Parainfluenza 2 (PCR) Not detected (NOT DETECT) 10/17/24 03:52 Parainfluenza 3 (PCR) Not detected (NOT DETECT) 10/17/24 03:52 Parainfluenza 4 (PCR) Not detected (NOT DETECT) 10/17/24 03:52 RSV Type A (PCR) Not detected (NOT DETECT) 10/17/24 03:52 RSV Type B (PCR) Not detected (NOT DETECT) 10/17/24 03:52 Entero/Rhino (PCR) Not detected (NOT DETECT) 10/17/24 03:52 SARS-CoV-2 (PCR) Not detected (NOT DETECT) 10/17/24 03:52 Radiology Impressions Chest CTA 10/16/24 20:23 IMPRESSION: 1. No definite acute pulmonary embolism or right heart strain. 2. Aortic and coronary atherosclerosis. 3. Multifocal airspace opacity at the bilateral lung bases, nonspecific although concerning for infectious infiltrate with other etiologies not excluded. Chest X-Ray 10/16/24 20:23 IMPRESSION: Patchy opacity involving the right mid and lower lung, nonspecific although concerning for edema or infection. Recent Clincial Data Last Vital Signs Temp 97.5 F L 10/23/24 11:55 Pulse 102 H 10/23/24 11:55 Resp 20 H 10/23/24 11:55 BP 116/65 10/23/24 11:55 Pulse Ox 83 L 10/23/24 11:55 O2 Del Method Nasal Cannula 10/23/24 11:55 O2 Flow Rate 10/23/24 11:55 FiO2 10 10/22/24 19:46 Vital Signs Temp Pulse Resp BP Pulse Ox O2 Del Method O2 Flow Rate 10/23/24 11:55 97.5 F L 102 H 20 H 116/65 83 L Nasal Cannula 10/23/24 08:00 97.0 F L 99 20 H 149/73 84 L Nasal Cannula 10/23/24 07:37 101 H 18 90 High Flow Nasal Cannula 10/23/24 07:37 90 High Flow Nasal Cannula 10/23/24 04:55 101 H 18 97 High Flow Nasal Cannula 10/23/24 04:00 98.0 F 99 18 94 Intake & Output/Weight 10/21/24 10/22/24 10/23/24 10/24/24 06:59 06:59 06:59 06:59 Intake Total 1560 / 1560 1140 / 1140 2040 / 2040 240 / 240 Output Total 3800 / 3800 3300 / 3300 1450 / 1450 450 / 450 Balance -2240 / -2240 -2160 / -2160 590 / 590 -210 / -210 Weight 93.576 kg 92.624 kg 97.069 kg Vitals Last Vital Signs Temp 97.5 F L 10/23/24 11:55 Pulse 102 H 10/23/24 11:55 Resp 20 H 10/23/24 11:55 BP 116/65 10/23/24 11:55 Pulse Ox 83 L 10/23/24 11:55 O2 Del Method Nasal Cannula 10/23/24 11:55 O2 Flow Rate 10 10/23/24 11:55 FiO2 10 10/22/24 19:46 TS Medications Medications Albuterol/Ipratropium (Ipratropium-Albuterol 3 Ml Neb) 3 ml INHALATION Q4H.RESPIRATORY JAVON Last Admin: 10/23/24 07:36 Dose: 3 ml Azithromycin (Azithromycin 250 Mg Tablet) 500 mg PO DAILY JAVON; Protocol Last Admin: 10/23/24 09:31 Dose: 500 mg Budesonide (Budesonide 0.5 Mg/2 Ml Neb) 0.5 mg INHALATION BID.RESPIRATORY JAVON Last Admin: 10/23/24 07:36 Dose: 0.5 mg Cefdinir (Cefdinir 300 Mg Capsule) 300 mg PO BID JAVON; Protocol Last Admin: 10/23/24 09:32 Dose: 300 mg Clonazepam (Clonazepam 0.5 Mg Tablet) 0.5 mg PO 0800,2100 JAVON Last Admin: 10/23/24 09:31 Dose: 0.5 mg Docusate Sodium (Docusate Sodium 100 Mg Capsule) 100 mg PO BID JAVON Last Admin: 10/23/24 09:32 Dose: 100 mg Enoxaparin Sodium (Enoxaparin 40 Mg/0.4 Ml Syringe) 40 mg SUBCUT Q24H JAVON Last Admin: 10/22/24 17:36 Dose: 40 mg Fluticasone Propionate (Fluticasone Nasal [place] 16gm Btl) 1 spray INTRANASAL DAILY PRN PRN Reason: Allergy Symptoms Guaifenesin (Guaifenesin 100 Mg/5 Ml Udc 10 Ml) 200 mg PO Q4H PRN PRN Reason: COUGH Last Admin: 10/17/24 04:43 Dose: 200 mg Lanolin (Lanolin Oint 7 Gm) 1 applic TOPICAL PRN PRN PRN Reason: DRYNESS Last Admin: 10/17/24 04:43 Dose: 1 applic Lisinopril (Lisinopril 10 Mg Tablet) 10 mg PO QAM JAVON Last Admin: 10/23/24 05:37 Dose: 10 mg Methylprednisolone Sodium Succinate (Methylprednisolone Sod Succ 40 Mg/Ml Inj) 40 mg IVP Q24H JAVON Last Admin: 10/23/24 09:31 Dose: 40 mg Morphine Sulfate (Morphine 10 Mg/0.5 Ml Oral Liq Ud) 5 mg PO Q6H JAVON Last Admin: 10/23/24 09:32 Dose: 5 mg Pantoprazole Sodium (Pantoprazole Dr 40 Mg Tablet) 40 mg PO 0600 JAVON Last Admin: 10/23/24 05:38 Dose: 40 mg Quetiapine Fumarate (Quetiapine 25 Mg Tablet) 50 mg PO BEDTIME JAVON Last Admin: 10/22/24 20:40 Dose: 50 mg Discontinued Medications Albuterol/Ipratropium (Ipratropium-Albuterol 3 Ml Neb) 6 ml INHALATION ONCE ONE Stop: 10/16/24 23:52 Last Admin: 10/17/24 00:02 Dose: 6 ml Albuterol/Ipratropium (Ipratropium-Albuterol 3 Ml Neb) 3 ml INHALATION QID.RESPIRATORY JAVON Azithromycin (Azithromycin 500 Mg Sdv) Confirm Administered Dose 500 mg .ROUTE .STK-MED ONE Stop: 10/17/24 01:25 Cefepime HCl (Cefepime 1,000 Mg Sdv) 1,000 mg IVP ONCE ONE; Protocol Stop: 10/16/24 21:36 Last Admin: 10/16/24 22:21 Dose: 1,000 mg Ceftriaxone Sodium (Ceftriaxone 2,000 Mg Sdv) 2,000 mg IVP BEDTIME AJVON; Protocol Last Admin: 10/17/24 00:30 Dose: 2,000 mg Furosemide (Furosemide 10 Mg/Ml Sdv 10ml) 60 mg IVP ONCE ONE Stop: 10/17/24 10:01 Last Admin: 10/17/24 11:04 Dose: 60 mg Furosemide (Furosemide 10 Mg/Ml Sdv 4ml) 40 mg IVP Q12H [facility] Last Admin: 10/21/24 07:29 Dose: 40 mg Furosemide (Furosemide 40 Mg Tablet) 40 mg PO DAILY@0800 [facility] Last Admin: 10/23/24 09:32 Dose: 40 mg Furosemide (Furosemide 10 Mg/Ml Sdv 10ml) 60 mg IVP ONCE ONE Stop: 10/23/24 11:04 Last Admin: 10/23/24 12:02 Dose: 60 mg Guaifenesin (Guaifenesin 100 Mg/5 Ml Udc 10 Ml) 400 mg PO Q4H PRN PRN Reason: COUGH Methylprednisolone Sodium Succinate 125 mg/ Sterile Water 2 mls @ 24 mls/hr IVP ONCE ONE Stop: 10/16/24 23:52 Last Admin: 10/16/24 23:56 Dose: Not Given Sodium Chloride (Sodium Chloride 0.9%) 1,000 mls @ 75 mls/hr IV .[id number] [facility] Last Infusion: 10/17/24 03:38 Dose: 0 mls/hr Azithromycin 500 mg/ Sodium (Chloride) 250 mls @ 250 mls/hr IV BEDTIME JAVON; Protocol Last Infusion: 10/17/24 03:53 Dose: Infused Sodium Chloride (Sodium Chloride 0.9%) Confirm Administered Dose 250 mls @ as directed .ROUTE .STK-MED ONE Stop: 10/17/24 01:26 Last Admin: 10/17/24 01:33 Dose: Not Given Piperacillin Sod/Tazobactam (Sod / Sodium Chloride) 50 mls @ 0 mls/hr [id number] JAVON; Protocol Vancomycin HCl / Sodium (Chloride) 250 mls @ 0 mls/hr [id number] PROTOCOL JAVON; Protocol Vancomycin HCl (Vancocin) 3,000 mg in 600 mls @ 200 mls/hr IV ONCE ONE Stop: 10/17/24 10:59 Last Admin: 10/17/24 09:33 Dose: 200 mls/hr Vancomycin HCl (Vancocin) 1,250 mg in 250 mls @ 166.667 mls/hr IV Q8H [facility] Last Admin: 10/18/24 08:14 Dose: 166.67 mls/hr Piperacillin Sod/Tazobactam (Sod 3.375 gm/ Sodium Chloride) 50 mls @ 12.5 mls/hr IV Q8H JAVON Last Infusion: 10/20/24 13:10 Dose: Infused Azithromycin 500 mg/ Sodium (Chloride) 250 mls @ 250 mls/hr IV BEDTIME JAVON; Protocol Last Infusion: 10/20/24 13:10 Dose: Infused Dexmedetomidine/Sodium Chloride (Precedex) 400 mcg in 100 mls @ 0 mls/hr IV .Q0M JAVON; Protocol Last Titration: 10/18/24 09:46 Dose: 0 mcg/kg/hr, 0 mls/hr Dexmedetomidine/Sodium Chloride (Precedex) 400 mcg in 100 mls @ 0 mls/hr IV .Q0M JAVON; Protocol Last Titration: 10/20/24 13:26 Dose: Infused Iohexol (Iohexol 350 Mg/Ml 500 Ml Btl (Per Ml)) 0 ml IV ONCE ONE Stop: 10/16/24 21:55 Last Admin: 10/16/24 21:55 Dose: 100 ml Ketorolac Tromethamine (Ketorolac 30 Mg/Ml Inj) 15 mg IVP Q6H PRN PRN Reason: MODERATE PAIN Stop: 10/22/24 03:34 Last Admin: 10/17/24 04:10 Dose: 15 mg Lorazepam (Lorazepam 1 Mg/0.5 Ml Injection) 1 mg IVP ONCE ONE Stop: 10/16/24 21:33 Last Admin: 10/16/24 21:37 Dose: 1 mg Lorazepam (Lorazepam 1 Mg/0.5 Ml Injection) 0.5 mg IVP ONCE ONE Stop: 10/17/24 05:46 Last Admin: 10/17/24 05:46 Dose: 0.5 mg Lorazepam (Lorazepam 1 Mg/0.5 Ml Injection) Confirm Administered Dose 1 mg .ROUTE .STK-MED ONE Stop: 10/17/24 05:46 Last Admin: 10/17/24 05:58 Dose: Not Given Lorazepam (Lorazepam 0.5 Mg Tablet) 0.5 mg PO BID PRN PRN Reason: ANXIETY Last Admin: 10/18/24 08:46 Dose: 0.5 mg Lorazepam (Lorazepam 1 Mg Tablet) 1 mg PO BEDTIME JAVON Last Admin: 10/17/24 20:11 Dose: 1 mg Lorazepam (Lorazepam 0.5 Mg Tablet) 0.5 mg PO BID@0800,1600 PRN PRN Reason: ANXIETY Last Admin: 10/20/24 08:36 Dose: 0.5 mg Lorazepam (Lorazepam 1 Mg Tablet) 1 mg PO DAILY@2200 JAVON Last Admin: 10/20/24 21:01 Dose: 1 mg Lorazepam (Lorazepam 1 Mg/0.5 Ml Injection) 0.5 mg IVP ONCE ONE Stop: 10/18/24 13:16 Last Admin: 10/18/24 13:18 Dose: 0.5 mg Lorazepam (Lorazepam 1 Mg/0.5 Ml Injection) Confirm Administered Dose 1 mg .ROUTE .STK-MED ONE Stop: 10/18/24 13:15 Lorazepam (Lorazepam 0.5 Mg Tablet) 0.5 mg PO BID@0800,1600 [facility] Last Admin: 10/21/24 14:55 Dose: 0.5 mg Lorazepam (Lorazepam 1 Mg/0.5 Ml Injection) 1 mg IVP ONCE ONE Stop: 10/20/24 13:03 Last Admin: 10/20/24 13:07 Dose: 1 mg Lorazepam (Lorazepam 1 Mg/0.5 Ml Injection) 0.5 mg IVP ONCE ONE Stop: 10/21/24 04:06 Last Admin: 10/21/24 04:13 Dose: 0.5 mg Magnesium Hydroxide (Magnesium Hydroxide 30 Ml Udc) 30 ml PO ONCE ONE Stop: 10/19/24 12:55 Last Admin: 10/19/24 13:01 Dose: 30 ml Methylprednisolone Sodium Succinate (Methylprednisolone Sod Succ 125 Mg/2 Ml Inj) Confirm Administered Dose 125 mg .ROUTE .STK-MED ONE Stop: 10/16/24 23:54 Methylprednisolone Sodium Succinate (Methylprednisolone Sod Succ 125 Mg/2 Ml Inj) 125 mg IVP ONCE ONE Stop: 10/16/24 23:58 Last Admin: 10/16/24 23:58 Dose: 125 mg Methylprednisolone Sodium Succinate (Methylprednisolone Sod Succ 125 Mg/2 Ml Inj) 60 mg IVP Q6H [facility] Last Admin: 10/17/24 11:04 Dose: 60 mg Methylprednisolone Sodium Succinate (Methylprednisolone Sod Succ 125 Mg/2 Ml Inj) 60 mg IVP Q8H [facility] Methylprednisolone Sodium Succinate (Methylprednisolone Sod Succ 125 Mg/2 Ml Inj) 60 mg IVP Q8H [facility] Last Admin: 10/18/24 02:13 Dose: 60 mg Methylprednisolone Sodium Succinate (Methylprednisolone Sod Succ 125 Mg/2 Ml Inj) 40 mg IVP Q8H [facility] Last Admin: 10/20/24 08:36 Dose: 40 mg Methylprednisolone Sodium Succinate (Methylprednisolone Sod Succ 40 Mg/Ml Inj) 40 mg IVP Q12H [facility] Last Admin: 10/21/24 07:29 Dose: 40 mg Morphine Sulfate (Morphine 4 Mg/Ml Sdv 1 Ml) 6 mg IVP ONCE ONE Stop: 10/16/24 21:32 Last Admin: 10/16/24 21:37 Dose: 6 mg Olanzapine (Olanzapine 5 Mg Tablet) 2.5 mg PO ONCE ONE Stop: 10/22/24 17:27 Last Admin: 10/22/24 17:36 Dose: 2.5 mg Pantoprazole Sodium (Pantoprazole Dr 40 Mg Tablet) 40 mg PO DAILY [facility] Last Admin: 10/20/24 08:36 Dose: 40 mg Potassium Chloride (Potassium Chloride Er 20 Meq Tablet) 20 meq PO DAILY [facility] Last Admin: 10/20/24 08:36 Dose: 20 meq Quetiapine Fumarate (Quetiapine 25 Mg Tablet) 25 mg PO Q12H [facility] Last Admin: 10/21/24 05:55 Dose: 25 mg Allergies strawberry Allergy (Verified 12/10/23 08:26) Unknown sea salt Allergy (Uncoded 12/10/23 08:26) Unknown Home Medications fluticasone propionate 50 mcg/actuation nasal spray,suspension (Flonase Allergy Relief) 1 spray intranasal DAILY PRN Allergy Symptoms 02/21/22 [History Confirmed 10/17/24] lisinopril 10 mg tablet 10 mg PO QAM 02/21/22 [History Confirmed 10/17/24] metoprolol succinate 100 mg tablet,extended release 24 hr 100 mg PO QAM 02/21/22 [History Confirmed 10/17/24] acetaminophen 650 mg tablet,extended release 650 - 1,300 mg PO Q6H PRN Pain 05/12/23 [History Confirmed 10/17/24] budesonide 160 mcg-glycopyr 9 mcg-formot 4.8 mcg/actuation HFA inhaler (Breztri Aerosphere) 2 inh inhalation BID PRN unknown 05/12/23 [History Confirmed 10/17/24] aspirin 81 mg tablet,delayed release 81 mg PO DAILY #90 tabs 11/06/23 [Rx Confirmed 10/17/24] albuterol sulfate 2.5 mg/3 mL (0.083 %) solution for nebulization 2.5 mg inhalation .UP TO QID PRN Shortness Of Breath 10/17/24 [History Confirmed 10/17/24] albuterol sulfate 90 mcg/actuation aerosol inhaler 2 puff inhalation Q4H PRN Shortness Of Breath 10/17/24 [History Confirmed 10/17/24] alprazolam 0.25 mg tablet 0.2 mg PO Q8H PRN Anxiety 10/17/24 [History Confirmed 10/17/24] budesonide 0.5 mg/2 mL suspension for nebulization 0.5 mg inhalation BID PRN Shortness Of Breath 10/17/24 [History Confirmed 10/17/24] ipratropium 0.5 mg-albuterol 3 mg (2.5 mg base)/3 mL nebulization soln 0.5 ml inhalation QID PRN Shortness Of Breath 10/17/24 [History Confirmed 10/17/24] roflumilast 500 mcg tablet 500 mcg PO DAILY PRN Skin Irritation 10/17/24 [History Confirmed 10/17/24] Discharge Plan Discharge Patient Disposition: Xfer Short-Term Hosp Condition: Stable Prescriptions: No Action aspirin 81 mg tablet,delayed release (DR/EC) 81 mg PO DAILY Qty: 90 3RF metoprolol succinate 100 mg tablet extended release 24 hr 100 mg PO QAM lisinopril 10 mg tablet 10 mg PO QAM fluticasone propionate [Flonase Allergy Relief] 50 mcg/actuation spray,suspension 1 spray INTRANASAL DAILY PRN (Reason: Allergy Symptoms) acetaminophen 650 mg Tablet Extended Release 650 - 1,300 mg PO Q6H PRN (Reason: Pain) Breztri Aerosphere 160-9-4.8 mcg/actuation HFA aerosol inhaler 2 inh INHALATION BID PRN (Reason: unknown) ipratropium-albuterol 0.5 mg-3 mg(2.5 mg base)/3 mL solution for nebulization 0.5 ml INHALATION QID PRN (Reason: Shortness Of Breath) albuterol sulfate 2.5 mg /3 mL (0.083 %) solution for nebulization 2.5 mg inhalation .UP TO QID PRN (Reason: Shortness Of Breath) alprazolam 0.25 mg tablet 0.2 mg PO Q8H PRN (Reason: Anxiety) budesonide 0.5 mg/2 mL suspension for nebulization 0.5 mg inhalation BID PRN (Reason: Shortness Of Breath) albuterol sulfate 90 mcg/actuation HFA aerosol inhaler 2 puff INHALATION Q4H PRN (Reason: Shortness Of Breath) roflumilast 500 mcg tablet 500 mcg PO DAILY PRN (Reason: Skin Irritation) Referrals: Ozzie Scott MD [Physician, Interventional Pulmonology] - 2 weeks Unique Waggoner FNP [Nurse Practitioner, Nurse Practitioner] - 10/30/24 1:00 pm Transfer Attestations Time Spent in Transfer Care: greater than 30 min Quality Metrics Clinical Quality Measures [ No reported AMI, CVA or VTE this stay] Coding Level of Care Code Acute Code for [facility] Fwd Diagnoses Anxiety F41.9 Personality disorder, unspecified F60.9
== END 2024-10-23 19:58 | disposition short-term general hospital (02) | DRG 193 ==
LOC: ER 10-17 00:15 → ICU 10-17 01:29 → CSU 10-20 13:00
PROVIDERS: Internal Medicine; Admitting Provider Internal Medicine; Emergency Provider Student in an Organized Health Care Education/Training Program; PCP Family Medicine; Visit Provider Internal Medicine
DX: J18.9 Pneumonia, unspecified organism (principal); I50.31 Acute diastolic (congestive) heart failure; J96.22 Acute and chronic respiratory failure with hypercapnia; J96.21 Acute and chronic respiratory failure with hypoxia; J44.1 Chronic obstructive pulmonary disease with (acute) exacerbation; J44.0 Chronic obstructive pulmonary disease with (acute) lower respiratory infection; F41.9 Anxiety disorder, unspecified; F60.9 Personality disorder, unspecified; E66.01 Morbid (severe) obesity due to excess calories; Z68.39 Body mass index [BMI] 39.0-39.9, adult; G47.33 Obstructive sleep apnea (adult) (pediatric); Z87.891 Personal history of nicotine dependence; R45.1 Restlessness and agitation; Z99.81 Dependence on supplemental oxygen; Z79.82 Long term (current) use of aspirin
CPT/HCPCS: 36415; 36416; 36600; 51702; 71045; 71275; 80048; 80053; 82803; 82962; 83605; 83735; 83880; 84100; 84484; 85025; 85610; 85730; 87040; 87070; 87077; 87186; 87205; 87486; 87581; 87633; 93005; 93306; 94640; 94664; 96365; 96372; 96375; 97116; 97161; 97165; 99285; J0456; J0692; J0696; J1650; J1885; J1938; J2060; J2270; J2543; J2919; J3373; J7030; J7050; J7626; J9999; Q0144